=== PATIENT | male | born 1975 | race Caucasian/White ===

== ENCOUNTER 2020-07-19 16:54 | Observation (INO) | payer OTHER, SELFPAY ==
[2020-07-19] VITALS (9 sets, daily range): BP systolic 95–156; BP diastolic 53–100; PULSE 43–77; RESP 12–18; TEMP 36.1–37.1; O2SAT 97–100; BMI 28.3; BMI 29.2
--- NOTE | 2020-07-19 17:04 | EKG12_ITS ---
Test Reason : CHEST PAIN Blood Pressure : / mmHG Vent. Rate : 063 BPM Atrial Rate : 063 BPM P-R Int : 150 ms QRS Dur : 096 ms QT Int : 404 ms P-R-T Axes : 023 -23 007 degrees QTc Int : 413 ms Normal sinus rhythm RSR' or QR pattern in V1 suggests right ventricular conduction delay Voltage criteria for left ventricular hypertrophy Abnormal ECG Confirmed by DEINS VIZCAINO MD ([id number]), editor continuity and script CHRIS VERA ([id number]) on 07/23/2020 8:14:59 AM Referred By: ALISE Confirmed By:DENIS VIZCAINO MD
--- NOTE | 2020-07-19 17:04 | ED.VIS.CHEST ---
HPI History of Present Illness Chief Complaint: Chest Other Informant: patient Narrative Narrative: 45-year-old male presents to the emergency department with intermittent chest discomfort. He states that been present for 2 weeks. He states that he will come like a twinge that last about a second and 20 seconds later will have another 1. He will have 3-4 and then it may stop for an hour or 4-day. He denies any other symptoms. He became concerned because his father had CABG. he called his doctor's office and they recommended him come to emergency. No recent travel or surgeries. He is not treated for any medical issues. PFSH PFSH no medical history Home Medications NK 07/19/20 [History Last Taken Unknown] Allergy/AdvReac Type Severity Reaction Status Date / Time No Known Allergies Allergy Verified 07/19/20 16:56 Family History (Updated 07/19/20 @ 17:[address] Luca Wallace DO) Father CAD (coronary artery disease) no surgical history Social History (Updated 07/19/20 @ 17:[address] Luca Wallace DO) Smoking Status: Never smoker substance use type: does not use ROS ROS ED Constitutional Constitutional ED: Denies chills or weight loss Eyes Eyes: Denies change in vision or diplopia ENT ENT ED: Denies ear pain, rhinorrhea or sore throat Cardiovascular Cardiovascular: Reports chest pain; Denies orthopnea, palpitations or racing heartbeat Respiratory/Chest Respiratory/Chest: Denies cough, dyspnea or orthopnea Gastrointestinal Gastrointestinal: Denies abdominal pain, diarrhea, nausea or vomiting Genitourinary Genitourinary ED: Denies dysuria, hematuria or urinary frequency Musculoskeletal Musculoskeletal: Denies arthralgias or myalgias Integumentary Denies abscess or rash Neurologic Neurologic: Denies headache(s) or weakness Psychiatric Psychiatric: Denies anxiety, depression, suicidal ideation or suicidal thoughts Endocrine Endocrinology: Denies polydipsia, polyphagia or polyuria Allergic/Immunologic Allergic/Immunologic ED: Denies mouth swelling, tongue swelling or urticaria EXAM Physical Exam Const Vital Signs: 07/19/20 16:55 07/19/20 17:18 07/19/20 17:20 Temperature 96.9 F L Temperature Source Temporal Pulse Rate 73 64 Respiratory Rate 15 15 Respiratory Effort Normal Blood Pressure 156/100 H 95/53 L Blood Pressure Mean 118 67 Pulse Ox 99 98 Oxygen Delivery Method Room Air Room Air Positive well nourished and well developed General Appearance ED: well developed HEENT Reports normocephalic, head/scalp atraumatic and moist mucous membranes Eyes PERRL and EOMs intact bilaterally Neck no lymphadenopathy, supple and no JVD Resp normal respiratory effort and clear to auscultation bilaterally Cardio regular rate, regular rhythm and no murmurs GI normal to inspection, nondistended, normoactive bowel sounds and non-tender Palpation: soft Back/Spine no CVA tenderness and normal ROM Extremity normal to inspection General Extremety ED: Negative for edema General Extremity: Negative for edema Neuro oriented x3 and CN's II-XII intact bilaterally Sensorium / Orientation: alert Motor Exam: strength 5/5 throughout Psych mental status grossly normal Mood & Affect: Negative for depressed or tearful Skin no rashes or lesions noted and no wounds Heart Score History: Slightly/Non-Suspicious ECG: Normal Age: </= 45 years Risk Factors: 1 or 2 Risk Factors Troponin: >1 - <3 Normal Limit Score: 2 MDM MDM MDM Narrative Medical decision making narrative: Patient's EKG is a sinus rhythm with RSR prime. Patient's troponin is noted to be 0.096. His story is a bit atypical for angina. However his troponin elevated is concerning. I will speak with her hospitalist about admission for further cardiac evaluation Lab Data Labs: Laboratory Results - last 24 hr 07/19/20 07/19/20 17:10 17:10 WBC 7.3 RBC 4.58 L Hgb 14.7 Hct 42.0 MCV 91.7 MCH 32.1 H MCHC 35.0 RDW Std Deviation 37.7 RDW Coeff of Neda 11.1 L Plt Count 139 L MPV 9.3 Immature Gran % (Auto) 0.100 Neut % (Auto) 59.6 Lymph % (Auto) 32.5 Benson % (Auto) 6.3 Eos % (Auto) 0.8 Baso % (Auto) 0.7 Absolute Neuts (auto) 4.3 Absolute Lymphs (auto) 2.36 Nucleated RBC % 0 Sodium 140 Potassium 3.9 Chloride 104 Carbon Dioxide 27.0 Anion Gap 9 BUN 14 Creatinine 0.98 Estim Creat Clear Calc 81.38 Est GFR (MDRD) Af Amer 107 Est GFR (MDRD) Non-Af 88 BUN/Creatinine Ratio 14.2 Glucose 103 Calcium 9.8 Troponin I 0.096 H Radiography Diagnostic Testing: Radiology Impression Chest X-Ray 07/19/20 17:16 IMPRESSION: No radiographic evidence of acute cardiopulmonary disease. at 1743 Reported and signed by: Ernesto Hartman MD Electronically Signed: Ernesto Hartman MD at 17:42 EDT Tel , Service support , EKG Initial EKG: Attestation: I personally reviewed and interpreted this EKG as follows: Comments: Sinus rhythm at a rate of 63. RSR prime noted V1 V2. Discharge Plan Dx/Rx/DC Orders Clinical Impression: Chest pain, Elevated troponin I level Disposition Disposition: Acute Care [facility]
--- NOTE | 2020-07-19 17:08 | NURSING ---
NO OLD EKGS
--- NOTE | 2020-07-19 17:16 | RAD_ITS ---
HISTORY: chest pain EXAMINATION/TECHNIQUE: XR Chest 1 View: Portable upright AP chest x-ray COMPARISON: None FINDINGS: LINES/DEVICES: None. LUNGS: No consolidation, edema or effusion. No pneumothorax. MEDIASTINUM AND CARDIOVASCULAR STRUCTURES: Cardiac silhouette not enlarged. Central airways and mediastinal contour are unremarkable. BONES AND SOFT TISSUES: No acute bony abnormalities. RAD/Chest 1 View (Portable) IMPRESSION: No radiographic evidence of acute cardiopulmonary disease. at 1743 Reported and signed by: Ernesto Hartman MD Electronically Signed: Ernesto Hartman MD at 17:42 EDT Tel , Service support ,
[2020-07-19 17:29] LABS: Absolute Lymphocyte Count 2.36 X10^3/uL (0.83-4.51); Absolute Neutrophil Count 4.3 X10^3/uL (2.0-7.7); Basophil# 0.05 X10^3/uL; Basophil% 0.7 % (0-1); Eosinophil# 0.06 X10^3/uL; Eosinophils% 0.8 % (0-5); Hemoglobin 14.7 g/dL (13.0-16.5); Lymphocyte # 2.36 X10^3/ul (0.83-4.51); Lymphocyte % 32.5 % (19-41); Mean Corpuscular Hgb 32.1 pg (27.0-32.0); Mean Corpuscular Volume 91.7 fL (80-94); Mean Platelet Vol. 9.3 fl (6.2-12.0); Monocyte# 0.46 X10^3/uL; Monocyte% 6.3 % (0-10); NRBC Flagged by Analyzer 0 % (0-5); Neutrophil # 4.32 X10^3/uL (2.7-7.7); Neutrophil % 59.6 % (47-70); Platelet Count 139 K/mm3 (150-450); RBC Distribution Width CV 11.1 % (11.6-14.6); RBC Distribution Width SD 37.7 fl (35.1-43.9); Red Blood Count 4.58 M/mm3 (4.6-6.2); White Blood Count 7.3 K/mm3 (4.4-11.0)
[2020-07-19 17:40] LABS: Anion Gap 9 (5-15); BUN 14 mg/dL (7-18); BUN/Creat Ratio 14.2 RATIO (10-20); Calcium,Total 9.8 mg/dL (8.5-10.1); Chloride 104 mmol/L (98-107); Creatinine, Serum 0.98 mg/dL (0.70-1.30); EST Glomerular Filtration Rate 88 mL/min (>60); Est Glom Filt Rate - Afr Amer 107 mL/min (>60); Estimated Creatinine Clearance 81.38 ml/min; Glucose 103 mg/dL (74-106); Potassium 3.9 mmol/L (3.5-5.1); Sodium Level 140 mmol/L (136-145)
--- NOTE | 2020-07-19 18:07 | NURSING ---
DR MARC GARCIA
--- NOTE | 2020-07-19 18:08 | NURSING ---
PCU OBS CP, INDETERMINATE TROP
--- NOTE | 2020-07-19 18:37 | PCM.HP.STD ---
Documented by User: ABRAM Kulkarni 07/19/20 18:47 HPI - General General Date of Admission: 07/19/20 HPI Narrative MISSY SOTO, is a 45 M who presents with intermittent chest pain over the past 2 to 3 weeks. Patient states that it is best described as a twinge in his left chest and although the sensation is not always in the same spot it is always on the left side. Patient states pain is 1-2 out of 10 and is more annoying than anything. Patient reports medical history of GERD for which he takes omeprazole. Patient denies fever, chills, shortness of breath, cough, pain that radiates to the neck or left arm, nausea, vomiting. [facility] Medical History GERD (gastroesophageal reflux disease) Home Medications omeprazole [Prilosec] 20 mg PO DAILY 07/19/20 [History Last Taken 07/19/20] Allergy/AdvReac Type Severity Reaction Status Date / Time No Known Allergies Allergy Verified 07/19/20 16:56 Family History Father CAD (coronary artery disease) Social History Smoking Status: Never smoker substance use type: does not use ROS Constitutional Constitutional: Denies anorexia, chills or fatigue Cardiovascular Cardiovascular: Reports chest pain; Denies dyspnea, radiating jaw, neck or arm pain or syncope Respiratory/Chest Respiratory/Chest: Denies cough, shortness of breath at rest or shortness of breath with exertion Gastrointestinal Gastrointestinal: Denies abdominal pain, nausea or vomiting Genitourinary Genitourinary: Denies dysuria Musculoskeletal Musculoskeletal: Denies back pain, extremity pain, joint pain or joint stiffness Integumentary Integumentary: Denies dry skin Neurologic Neurologic: Denies abnormal gait, abnormal speech, confusion or dizziness Psychiatric Psychiatric: Denies anxiety or depression Endocrine Endocrinology: Denies change in body appearance Hematologic/Lymphatic Hematologic/Lymphatic: Denies easy bleeding or easy bruising Vital Signs Vital Signs Vital Signs: 07/19/20 16:55 07/19/20 17:18 07/19/20 17:20 Temperature 96.9 F L Temperature Source Temporal Pulse Rate 73 64 Respiratory Rate 15 15 Respiratory Effort Normal Blood Pressure 156/100 H 95/53 L Blood Pressure Mean 118 67 Pulse Ox 99 98 Oxygen Delivery Method Room Air Room Air 07/19/20 18:30 Temperature 98.1 F Temperature Source Temporal Pulse Rate 64 Respiratory Rate 18 Respiratory Effort Blood Pressure 110/74 Blood Pressure Mean 86 Pulse Ox 97 Oxygen Delivery Method Room Air Weight Weight: 165 lb Body Mass Index (BMI) 28.3 Physical Exam Const alert and oriented x3 General Appearance: cooperative HEENT normocephalic and head/scalp atraumatic Eyes PERRL Neck supple, no JVD and thyroid normal General: trachea midline Lymph Lymphatic: no lymphadenopathy noted Resp normal respiratory effort, normal air movement and clear to auscultation bilaterally Cardio regular rate, regular rhythm, S1 normal heart sound and S2 normal heart sound GI normal to inspection, nondistended, normoactive bowel sounds, soft to palpation and non-tender Extremity normal capillary refill and no clubbing, cyanosis or edema General Extremity: no tenderness to palpation of joints or extremities Skin General Skin Exam: no breakdown and turgor normal Lesions: no lesions Rashes: no rashes Neuro CN's II-XII intact bilaterally Psych thought process normal, cooperative and affect normal Appearance: appropriate Results Lab / Micro Data Result Diagrams: 07/19/20 17:10 07/19/20 17:10 Labs: Laboratory Results - last 24 hr 07/19/20 07/19/20 17:10 17:10 WBC 7.3 RBC 4.58 L Hgb 14.7 Hct 42.0 MCV 91.7 MCH 32.1 H MCHC 35.0 RDW Std Deviation 37.7 RDW Coeff of Neda 11.1 L Plt Count 139 L MPV 9.3 Immature Gran % (Auto) 0.100 Neut % (Auto) 59.6 Lymph % (Auto) 32.5 [place] % (Auto) 6.3 Eos % (Auto) 0.8 Baso % (Auto) 0.7 Absolute Neuts (auto) 4.3 Absolute Lymphs (auto) 2.36 Nucleated RBC % 0 Sodium 140 Potassium 3.9 Chloride 104 Carbon Dioxide 27.0 Anion Gap 9 BUN 14 Creatinine 0.98 Estim Creat Clear Calc 81.38 Est GFR (MDRD) Af Amer 107 Est GFR (MDRD) Non-Af 88 BUN/Creatinine Ratio 14.2 Glucose 103 Calcium 9.8 Troponin I 0.096 H Radiology Impression Chest X-Ray 07/19/20 17:16 IMPRESSION: No radiographic evidence of acute cardiopulmonary disease. at 1743 Reported and signed by: Ernesto Hartman MD Electronically Signed: Ernesto Hartman MD at 17:42 EDT Tel , Service support , Assessment & Plan Assessment/Plan (1) Chest pain: QUALIFIERS: Chest pain type: unspecified Qualified Code(s): R07.9 - Chest pain, unspecified (2) Elevated troponin I level: PLAN: 1. Chest pain -Admit to PCU for observation and cardiac monitoring -Initial troponin 0.096, will continue to trend per protocol -Cardiology consult ordered, case discussed with Dr. Davis will see in a.m. -Cardiac diet ordered, n.p.o. at midnight for possible procedure -Lipid profile in a.m. -Repeat EKG upon arrival to floor -Will initiate 81 mg aspirin daily, aspirin 324 mg dose received in ER 2. Elevated troponin I level -See #1 3. GERD -Patiently currently takes omeprazole, well controlled we will continue. DVT prophylaxis-no pharmacological prophylaxis indicated This patient was seen by KANDACE KulkarniC under the supervision of Dr. Ramos. Documented by User: Dr. Marvin Ramos DO 07/19/20 19:50 HPI - General General Date of Admission: 07/19/20 Date of Service: 07/19/20 Chief Complaint: Chest pain HPI Narrative 45-year-old male with no previous past medical history presents with intermittent chest pain. He states is a chest pain is variable and not relieved or exacerbated by anything in particular. States that his primary left-sided but can be pinpoint around the lower left portion of his sternum at times. Not worsened by exertion and states that he recently went out for a jog and had no worsening of his chest pain. He denies any other constitutional symptoms along with this. He denies this ever having happened before. He presented to the emergency room and underwent a work-up that was unremarkable with exception of a troponin that was slightly elevated at 0.09. [facility] Medical History GERD (gastroesophageal reflux disease) Home Medications omeprazole [Prilosec] 20 mg PO DAILY 07/19/20 [History Last Taken 07/19/20] Allergy/AdvReac Type Severity Reaction Status Date / Time No Known Allergies Allergy Verified 07/19/20 16:56 Family History Father CAD (coronary artery disease) Social History Smoking Status: Never smoker substance use type: does not use ROS ROS Narrative All review of systems were negative except as mentioned above in the history of present illness and the other review of systems. Physical Exam Const alert Eyes PERRL and EOMs intact bilaterally Resp normal respiratory effort, normal air movement and clear to auscultation bilaterally Cardio regular rate, regular rhythm, S1 normal heart sound and S2 normal heart sound GI normal to inspection, nondistended, normoactive bowel sounds, non-tender and non-distended Extremity no clubbing, cyanosis or edema General Extremity: no tenderness to palpation of joints or extremities Results Lab / Micro Data Attestation: I reviewed the patient's lab results. Result Diagrams: 07/19/20 17:10 07/19/20 17:10 Assessment & Plan Assessment/Plan (1) Chest pain: QUALIFIERS: Chest pain type: unspecified Qualified Code(s): R07.9 - Chest pain, unspecified (2) Elevated troponin I level: PLAN: Patient seen and examined independently. Data reviewed. I agree with the above note by the nurse practitioner. 1. Chest pain NELIDA score of 2, due to chest pain and elevated cardiac markers Did discuss with Dr. Moodispaw because of his elevated troponins though relatively low, he recommended to keep patient n.p.o. and then cardiology would evaluate tomorrow to determine if stress test or cardiac catheterization would be advised. Will start the patient on aspirin, check lipid panel, cycle troponins 2. VTE prophylaxis: Not indicated at this time given observation status. Charges/Coding Visit Charges OBSV E&M: 45530 Initial observation care L2
--- NOTE | 2020-07-19 18:48 | EKG12_ITS ---
Test Reason : BRADYCARDIA Blood Pressure : / mmHG Vent. Rate : 045 BPM Atrial Rate : 045 BPM P-R Int : 166 ms QRS Dur : 098 ms QT Int : 446 ms P-R-T Axes : 028 -14 010 degrees QTc Int : 385 ms Sinus bradycardia Voltage Criteria for LVH Nonspecific T wave abnormality Confirmed by LIS ULLOA, TEE ([id number]), associate entertainment editor TRAVIS CRUZ ([id number]) on 07/21/2020 9:12:25 AM Referred By: DR TRAN Confirmed By:TEE HAYS MD
[2020-07-19] MEDS: Aspirin 81 MG TAB.CHEW 324 MG PO (19:55)
--- NOTE | 2020-07-19 23:12 | EKG12_ITS ---
Test Reason : CP ADMIT Blood Pressure : / mmHG Vent. Rate : 058 BPM Atrial Rate : 058 BPM P-R Int : 148 ms QRS Dur : 096 ms QT Int : 408 ms P-R-T Axes : 028 -22 013 degrees QTc Int : 400 ms Sinus bradycardia Voltage criteria for left ventricular hypertrophy Nonspecific T wave abnormality Abnormal ECG Confirmed by LIS ULLOA, TEE ([id number]), script editor TRAVIS CRUZ ([id number]) on 07/21/2020 9:12:43 AM Referred By: DR TRAN Confirmed By:TEE HAYS MD
--- NOTE | 2020-07-19 23:36 | NURSING ---
Pt's heart rate was noted to be as low as 39, notified shanita patel of heart rate. Order received to obtain ekg, ekg sent to Dr Jenkins for review. No stemi per Dr Jenkins. No furthur orders received. 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
[2020-07-20] VITALS (15 sets, daily range): BP systolic 113–147; BP diastolic 72–86; PULSE 45–78; RESP 14–18; TEMP 36.4–36.9; O2SAT 97–100
[2020-07-20] MEDS: Aspirin E.C. 81 MG Tablet PO (06:35)
[2020-07-20 07:07] LABS: Cholesterol 200 mg/dL (200); High Density Lipoprotein 52 mg/dL; Triglycerides 122 mg/dL; Very Low Density Lipoprotein 24 mg/dL (5-40)
--- NOTE | 2020-07-20 08:11 | ECHOCS_ITS ---
Reason For Study: Chest Pain Procedure This was a 2D Doppler, Color Flow transthoracic echocardiogram. Technically difficult study, contrast injection performed. Echo done immediately post cath. The study was technically difficult. Contrast injection was performed. Exam performed portable in patient room. Left Ventricle Normal LV size. Left ventricular systolic function is normal. The estimated ejection fraction is 60 %. No evidence for diastolic dysfunction. No regional wall motion abnormalities noted. Right Ventricle Normal RV size. A calcified moderator band is seen in the right ventricle. Normal systolic function. Atria Normal left atrium. Normal right atrium. No doppler evidence for ASD. Mitral Valve There is no mitral annular calcification. Normal mitral valve. Trivial mitral valve insufficiency. Tricuspid Valve Normal tricuspid valve. Mild tricuspid valve insufficiency. Right ventricular systolic pressure estimated to be 29 mmHg. Aortic Valve Trisinus/trileaflet aortic valve. Normal aortic valve. Pulmonic Valve The pulmonic valve is not well visualized. Great Vessels The aortic root is not well visualized. Pericardium/Pleural No pericardial effusion. Medication Diluted definity 2.5ml given slow IV push to enhance endocardial definition. MMode/2D Measurements & Calculations LVIDd: 4.9 cm IVSd: 1.1 cm LA dimension: 2.9 cm LVIDs: 3.1 cm LVPWd: 1.1 cm FS: 36.6 % LAV(MOD-sp4): 26.2 ml LA A4 area: 12.0 cm2 RA A4 area: 14.2 cm2 Time Measurements MV dec time: 0.31 sec Doppler Measurements & Calculations MV E max luis: 80.4 cm/sec Lat Peak E' Luis: 12.1 cm/sec Med Peak E' Luis: 11.2 cm/sec MV A max luis: 59.3 cm/sec E/E' lat: 6.6 E/E' med: 7.2 MV E/A: 1.4 MV V2 max: 91.1 cm/sec MV P1/2t max luis: 91.7 cm/sec Ao V2 max: 106.5 cm/sec MV max P.3 mmHg MV P1/2t: 83.9 msec Ao max P.5 mmHg MV V2 mean: 40.0 cm/sec MV dec slope: 320.1 cm/sec2 MV mean P.82 mmHg MV V2 VTI: 32.7 cm MVA(P1/2t): 2.6 cm2 LV V1 max: 101.2 cm/sec PA V2 max: 173.3 cm/sec TR max luis: 255.7 cm/sec LV V1 max P.1 mmHg TR max P.1 mmHg ECHO/Echo Complete W/ Contrast Interpretation Summary The study was technically difficult. Contrast injection was performed. Left ventricular systolic function is normal. The estimated ejection fraction is 60 %. A calcified moderator band is seen in the right ventricle. Trivial mitral valve insufficiency. Mild tricuspid valve insufficiency. Right ventricular systolic pressure estimated to be 29 mmHg. No evidence for diastolic dysfunction. Ordering Physician: Uday Davis Referring Physician: No PCP noted Performed By: Anand Raymond RCS
--- NOTE | 2020-07-20 08:16 | PCM.CONS.C ---
Assessment & Plan Assessment/Plan (1) Elevated troponin I level: PLAN: The patient does have an elevated troponin I level. Technically this is compatible with a non-ST segment elevation SC. It is unclear at the moment whether this may be a type I event versus a type II event secondary to a noncardiovascular issue. From a cardiac standpoint the patient appears to be resting comfortably in no acute distress. His troponin I levels have trended down but have not normalized. His follow-up ECGs have not demonstrated any new acute changes. Further evaluation from a cardiovascular standpoint was discussed with him. This would include noninvasive studies such as a transthoracic echocardiogram to evaluate his left ventricular wall thickness, motion, and overall systolic function. From an invasive standpoint this would include further evaluation with diagnostic cardiac catheterization to evaluate his coronary anatomy for the need for additional diagnostic studies/revascularization versus further noncardiac evaluation. The above was discussed and reviewed with the patient. The procedure and risks were discussed. The patient was agreeable to proceeding with the above. In the interim he will continue medical therapy as deemed appropriate which would include aspirin therapy and antiplatelet therapy as well as additional medications as necessary. (2) Chest pain: QUALIFIERS: Chest pain type: unspecified Qualified Code(s): R07.9 - Chest pain, unspecified PLAN: The patient's chest discomfort is somewhat vague according to the patient. However, he states he knows it is not his normal feeling. At the same time he has been found to have his abnormal troponin I levels. There has been no other etiology to explain his discomfort or his troponin I levels thus far. Thus in the interim the patient will continue noninvasive and invasive studies as deemed appropriate. (3) HTN (hypertension): QUALIFIERS: Hypertension type: unspecified Qualified Code(s): I10 - Essential (primary) hypertension PLAN: The patient's blood pressure was elevated upon arrival to the hospital. He states his blood pressure is usually well controlled at home and in other physicians offices. Thus it is unclear as to whether or not the patient's blood pressure has elevated and this is a contributing factor to his symptoms and objective findings versus whether his blood pressure was elevated based upon his anxiety and presenting to the emergency department. At the present time his blood pressures will be followed and treated as necessary. Addt'l Comments The patient's case has been discussed reviewed with the patient and Dr. Stack of the [facility] staff. This note was generated using a voice recognition system and there may be incorrect words, spelling or punctuation that were not noted when reviewing the office note prior to saving. HPI Consult Data Date of Consult: 07/20/20 HPI Narrative HPI Narrative: MISSY SOTO, is a 45 year old white male who presents for cardiovascular rotation based upon concerns of chest discomfort and abnormal troponin I levels. The patient states that recently he has been feeling left-sided discomfort . He describes a vague sensation over his left pectoral area that comes and goes somewhat randomly. It does not necessarily radiate to his neck jaw or upper extremity. He states it is not necessarily associated with abrupt nausea, emesis, diaphoresis, or dyspnea. It has not necessarily stopped his activities of daily living. However, as he has a family history of cardiovascular disease in the males in his family, he contacted his PCP yesterday. His PCP advised him to present to the emergency department for further evaluation. In the emergency department he was evaluated and found to have an abnormal troponin I level and an ECG that demonstrated what appeared to be sinus bradycardia with an incomplete right bundle branch block pattern and consideration for voltage criteria for LVH. He was placed in the PCU for further evaluation and care. His troponin I levels have decreased but have not normalized. His repeat ECGs have demonstrated no acute ECG changes. A chest x-ray was performed which demonstrated no acute changes per radiology. In the interim he has denied any orthopnea, PND, or peripheral pitting edema. He states he has taken on a new stressful job over the last 2 weeks. [facility] Medical History GERD (gastroesophageal reflux disease) Home Medications omeprazole [Prilosec] 20 mg PO DAILY 07/19/20 [History Last Taken 07/19/20] Allergy/AdvReac Type Severity Reaction Status Date / Time No Known Allergies Allergy Verified 07/19/20 16:56 Family History Father CAD (coronary artery disease) Social History Smoking Status: Never smoker substance use type: does not use ROS Constitutional Constitutional: Reports as per HPI Eyes Eyes: Reports as per HPI ENT HEENT: Reports as per HPI Cardiovascular Cardiovascular: Reports chest pain Respiratory/Chest Respiratory/Chest: Reports as per HPI Genitourinary Genitourinary: Reports as per HPI Integumentary Integumentary: Reports as per HPI Neurologic Neurologic: Reports as per HPI Physical Exam Const alert and oriented x3 Orientation / Consciousness: awake HEENT normocephalic Eyes PERRL and EOMs intact bilaterally Neck full ROM and supple Chest inspection of chest normal Resp normal respiratory effort and clear to auscultation bilaterally Cardio regular rate, regular rhythm, S1 normal heart sound and S2 normal heart sound GI normal to inspection, nondistended, normoactive bowel sounds Extremity normal to inspection and full ROM Skin no rashes or lesions noted Neuro oriented x3, CN's II-XII intact bilaterally and moves all extremities Psych mental status grossly normal Procedure Criteria Type of Procedure Procedure Type: Elective Elective Risks - COVID COVID Risk Discussion: The surgeon/proceduralist and patient have discussed in detail the risk of exposure to and/or potential harm posed by the COVID-19 virus with having a surgery/procedure at this time versus the risk of delaying the surgery/procedure. It is not possible to know either the risk of delaying the surgery or procedure or chance of getting an infection with perfect accuracy, but a joint decision was made between the patient and the surgeon/proceduralist to proceed at this time with the scheduled surgery/procedure as indicated on the consent form. Objective Data Vital Signs: Vital Signs Temp Pulse Resp BP Pulse Ox 98.4 F 67 16 119/75 98 07/20/20 06:38 07/20/20 06:59 07/20/20 06:38 07/20/20 06:38 07/20/20 06:38 Oxygen Delivery Method Room Air Weight: 170 lb 4.8 oz Body Mass Index (BMI) 29.2 Intake & Output: Intake and Output for Last 24 Hours 07/18/20 07/19/20 07/20/20 23:59 23:59 23:59 Intake Total 400 / 400 Balance 400 / 400 Lab / Micro Data Result Diagrams: 07/19/20 17:10 07/19/20 17:10 Labs: Laboratory Results - last 24 hr 07/19/20 07/19/20 07/19/20 17:10 17:10 19:51 WBC 7.3 RBC 4.58 L Hgb 14.7 Hct 42.0 MCV 91.7 MCH 32.1 H MCHC 35.0 RDW Std Deviation 37.7 RDW Coeff of Neda 11.1 L Plt Count 139 L MPV 9.3 Immature Gran % (Auto) 0.100 Neut % (Auto) 59.6 Lymph % (Auto) 32.5 [place] % (Auto) 6.3 Eos % (Auto) 0.8 Baso % (Auto) 0.7 Absolute Neuts (auto) 4.3 Absolute Lymphs (auto) 2.36 Nucleated RBC % 0 Sodium 140 Potassium 3.9 Chloride 104 Carbon Dioxide 27.0 Anion Gap 9 BUN 14 Creatinine 0.98 Estim Creat Clear Calc 81.38 Est GFR (MDRD) Af Amer 107 Est GFR (MDRD) Non-Af 88 BUN/Creatinine Ratio 14.2 Glucose 103 Calcium 9.8 Troponin I 0.096 H 0.083 H Triglycerides Cholesterol LDL Cholesterol VLDL Cholesterol HDL Cholesterol 07/19/20 07/20/20 23:06 06:16 WBC RBC Hgb Hct MCV MCH MCHC RDW Std Deviation RDW Coeff of Neda Plt Count MPV Immature Gran % (Auto) Neut % (Auto) Lymph % (Auto) [place] % (Auto) Eos % (Auto) Baso % (Auto) Absolute Neuts (auto) Absolute Lymphs (auto) Nucleated RBC % Sodium Potassium Chloride Carbon Dioxide Anion Gap BUN Creatinine Estim Creat Clear Calc Est GFR (MDRD) Af Amer Est GFR (MDRD) Non-Af BUN/Creatinine Ratio Glucose Calcium Troponin I 0.075 H Triglycerides 122 Cholesterol 200 LDL Cholesterol 124 VLDL Cholesterol 24 HDL Cholesterol 52 Cardiology Labs/Tests 07/19/20 17:10: WBC 7.3, RBC 4.58 L, Hgb 14.7, Hct 42.0, MCV 91.7, MCH 32.1 H, MCHC 35.0, Plt Count 139 L, MPV 9.3, Immature Gran % (Auto) 0.100, Neut % (Auto) 59.6, Lymph % (Auto) 32.5, [place] % (Auto) 6.3, Eos % (Auto) 0.8, Baso % (Auto) 0.7, Absolute Neuts (auto) 4.3, Nucleated RBC % 0 07/19/20 17:10: Sodium 140, Potassium 3.9, Chloride 104, Carbon Dioxide 27.0, Anion Gap 9, BUN 14, Creatinine 0.98, Est GFR (MDRD) Af Amer 107, Est GFR (MDRD) Non-Af 88, BUN/Creatinine Ratio 14.2, Glucose 103, Calcium 9.8, Troponin I 0.096 H 07/19/20 19:51: Troponin I 0.083 H 07/19/20 23:06: Troponin I 0.075 H 07/20/20 06:16: Triglycerides 122, Cholesterol 200, LDL Cholesterol 124, VLDL Cholesterol 24, HDL Cholesterol 52 Rhythm: Sinus rhythm EKG: As noted above Radiography Diagnostic Testing: Radiology Impression Chest X-Ray 07/19/20 17:16 IMPRESSION: No radiographic evidence of acute cardiopulmonary disease. at 1743 Reported and signed by: Ernesto Hartman MD Electronically Signed: Ernesto Hartman MD at 17:42 EDT Tel , Service support ,
[2020-07-20] MEDS: 0.9% Normal Saline 1,000 ML 15 ML IV (08:31)
[2020-07-20] MEDS: TICAGRELOR 90 MG TABLET 180 MG PO (08:32)
[2020-07-20] MEDS: Pantoprazole Sodium 20 MG Tablet PO (08:32)
--- NOTE | 2020-07-20 08:38 | NURSING ---
called report to Jarad in cathodic protection technician
--- NOTE | 2020-07-20 08:40 | CASEMGMT ---
[facility] follows: [facility], [facility], [facility], and [place] ([facility]) Liborio BSN RN CM
--- NOTE | 2020-07-20 10:08 | CL.D_ITS ---
Patient Name: MISSY SOTO Study Date: 07/20/2020 Performing: Uday Davis MD Ht: 64.17 inches 163 cm : 1975 Wt: 169.76 lbs 77 kg Age: 45 Gender: male BSA: 1.83 PROCEDURE(S) PERFORMED LY11-MEK/COR/LV CLINICAL PROFILE AND INDICATIONS Indications: ACS <= 24 hrs, Suspected CAD Heart Failure: None Stress/Imaging Stress/Image Study Performed: No Angina Classification Anginal Classification w/in 2 Weeks: CCS III CAD Presentations: Non-STEMI. CONCLUSIONS Normal Left Ventricular End Diastolic Pressure Normal LV size, wall motion,and systolic function LVEF: by LV gram 60 % Normal coronary arteries RECOMMENDATIONS Risk factor modification Medical therapy DESCRIPTION OF PROCEDURE The patient arrived to the procedure lab. The risks and benefits of the procedure as well as a full d escription of our services here and current unavailability of surgical backup were fully explained to the patient and/or their significant other prior to the catheterization. The Timeout was completed, verifying the correct patient and procedure. The patient's procedural site was prepped and draped in the usual fashion. Local anesthetic was given subcutaneously to right radial region with Lidocaine 2% . Local anesthetic was given subcutaneously to right groin region with Lidocaine 2%. Using a modified Seldinger technique, arterial access was obtained via the right femoral artery, a 4Fr sheath was ins erted Left Coronary Artery selective angiography was performed in multiple views using a 4 Fr. JL5 c atheter. Left Coronary Artery selective angiography was performed in multiple views using a 4 Fr. JL4 catheter. Right Coronary Artery selective angiography was then performed in multiple views using a 4 Fr. 3DRC catheter. Left Ventriculography was performed in MARTI projection using a 4 Fr . Pigtail catheter. LV to AO pullback pressures were then recorded.The arterial sheath was pulled and manual compression applied until hemostasis is achieved. CORONARY ANGIOGRAPHY DOMINANCE: Right Dominant LEFT HEART ASSESSMENT Left Ventricular Ejection Fraction: by LV Gram 60 % Normal LV wall motion Normal Left Ventricular End Diastolic Pressure LVEDP: 7 mmHg LEFT MAIN: Angiographically normal LEFT ANTERIOR DESCENDING ARTERY: Angiographically normal CIRCUMFLEX ARTERY: Angiographically normal RIGHT CORONARY ARTERY: Angiographically normal AORTIC ROOT: Angiographically normal COMPLICATIONS No Complications PROCEDURE MEDICATIONS Fentanyl 50 mcg IV Versed 1 mg IV Oxygen: 2 L/min via nasal cannula SUMMARY OF HEMODYNAMIC DATA Time AIR REST ECG 08:45:38 AO 98/58 (79) SA 09:38:40 LV 121/-18, 9 09:50:20 LV 121/-18, 7 09:50:27 LV 118/-18, 8 09:51:38 LV 120/-18, 9 09:51:43 LVp 119/-19, 8 09:51:52 AOp 123/61 (85) 09:51:57 Signed By Uday Davis MD On 07/20/2020 10:07:40 Uday Davis MD
--- NOTE | 2020-07-20 11:32 | PCM.DC ---
Discharge Instructions Follow Up Care Test Results: Test results from this visit will be discussed in further detail at your follow-up appointment, if applicable. Discharge Plan Admission Admit Date/Time: 07/19/20 18:26 Attending Provider: Vadim Stack Primary Care Provider: Care Physician,No Primary Consulting Providers: Uday Davis Instructions Patient Instructions: ED Chest Pain, Noncardiac Discharge Orders/Prescriptions Prescriptions: No Action omeprazole [Prilosec] 20 mg Capsule,Delayed Release(Dr/Ec) 20 mg PO DAILY RF: 0 Referrals / Follow Up: Care Physician,No Primary [Primary Care Provider] - Disposition Disposition (needs filled in before D/C Order can be placed): Home, self care
--- NOTE | 2020-07-20 11:57 | CASEMGMT ---
[facility] NOTE: Pt being discharged home. Noted pt listed as not having a PCP. RN CM to room to talk w/pt. Introduced self and role of [facility]. Pt states he was seeing Dr Goode @ [facility], but now has an appt to get established w/a new doctor @ [facility] next week. Pt states he does not remember name of the new PCP. He denies having any discharge planning needs/concerns. Liborio RODRIGUESN [facility]
--- NOTE | 2020-07-20 14:39 | DCINST_ITS ---
Discharge Instructions Diet Discharge Diet: Low fat / Low cholesterol Activity Discharge Activity: Return to Normal Activity Additional Activity Instructions:: Follow-up post cath instructions Dressing / Incision Call your doctor if your incision/area has: Continuous Slow Oozing, Sudden Increased Bleeding, Increased Pain/ Swelling, Increased Redness, Foul Smelling Discharge and Swelling at the incision site Call your doctor if you observe: Shortness of breath, Dizziness and Chest pain Follow Up Care Test Results: Test results from this visit will be discussed in further detail at your follow-up appointment, if applicable. Discharge Plan Admission Admit Date/Time: 07/19/20 18:26 Primary Reason for Your Visit: Chest pain Attending Provider: Vadim Stack Primary Care Provider: Care Physician,No Primary Consulting Providers: Uday Davis Discharge Orders/Prescriptions Prescriptions: New aspirin 81 mg Tablet,Delayed Release (Dr/Ec) 81 mg PO DAILY@0800 Qty: 30 RF: 0 atorvastatin 10 mg tablet 10 mg PO QHS Qty: 30 RF: 0 clopidogrel [Plavix] 75 mg tablet 75 mg PO DAILY Qty: 30 RF: 0 lisinopril 5 mg tablet 5 mg PO DAILY Qty: 30 RF: 0 Continued omeprazole 20 mg Capsule,Delayed Release(Dr/Ec) 20 mg PO DAILY RF: 0 Referrals / Follow Up: Care Physician,No Primary [Primary Care Provider] - In 1 Week Elisabet Spaulding, PA [PHYSICIAN ENGINEERING AIDE] - Within 2 Weeks (Hospital cardiology follow-up) Disposition Disposition (needs filled in before D/C Order can be placed): Home, self care
[2020-07-20 14:42] LABS: D-Dimer Quantitative (DVT/PE) 0.29 FEU/ug/m (0.27-0.49)
--- NOTE | 2020-07-20 14:46 | DS.PCM_ITS ---
Documented by User: Leslie Garcia NP, SAMMY-C 07/20/20 14:53 Providers Date of Admission: 07/19/20 Date of Discharge: 07/20/20 Primary Care Physician: No Primary Care Phys Consultations 07/19/20 18:48 Consult: Cardiology Routine Consulting Provider: Uday Davis Reason for Consult: chest pain EMERGENT Consult: No MD Notified: Yes Date Notified:: 07/19/20 Time Notified: 18:25 Method of Notification: Verbal Reason For Visit: CHEST PAIN Diagnosis Discharge Diagnosis (1) Elevated troponin I level: Status: Acute Code(s): R77.8 - Other specified abnormalities of plasma proteins (2) Chest pain: Status: Acute Code(s): R07.9 - Chest pain, unspecified Qualifiers: Chest pain type: unspecified Qualified Code(s): R07.9 - Chest pain, unspecified (3) HTN (hypertension): Status: Chronic Code(s): I10 - Essential (primary) hypertension Qualifiers: Hypertension type: unspecified Qualified Code(s): I10 - Essential (primary) hypertension Medications at Discharge Home Medications omeprazole 20 mg PO DAILY 07/19/20 aspirin 81 mg PO DAILY@0800 #30 tab 07/20/20 atorvastatin 10 mg PO QHS #30 tab 07/20/20 clopidogrel [Plavix] 75 mg PO DAILY #30 tab 07/20/20 lisinopril 5 mg PO DAILY #30 tab 07/20/20 Hospital Course Operations None Procedures 2-D Echocardiogram and Cardiac catheterization Summary of Care Provided Minutes Spent on Discharge: 35 Hospital Course: Patient is a 45-year-old male admitted 07/19/20 due to chest pain. 1. Chest pain, elevated troponin-troponin 0. 096, 0.083, 0.075. EKG without ST-T changes. Echocardiogram demonstrates an EF of 60%. Patient underwent cardiac catheterization which showed normal coronary arteries. D-dimer negative. Wells score for DVT/PE 0. Cardiology consulted during admission. Given elevated troponin, cardiology recommends aspirin, Plavix, statin, AREN inhibitor. Plavix for 3 months followed by aspirin only. Follow-up with cardiology in 2 weeks. 2. GERD-continue PPI. Patient seen and examined prior to discharge. Physical assessment as noted below. Patient is stable for discharge with follow up recommendations as noted above. This patient was seen by ABRAM Nina under the supervision of Dr. Stack. Physical Exam Const alert, oriented x3 and no apparent distress Orientation / Consciousness: awake, oriented to person, oriented to place and oriented to time HEENT normocephalic and moist oral mucous membranes Eyes PERRL, EOMs intact bilaterally and conjunctivae normal Neck no lymphadenopathy Resp normal respiratory effort and clear to auscultation bilaterally Cardio regular rate, regular rhythm and no murmurs Peripheral Pulses: pulses 2+ throughout GI normal to inspection, nondistended, normoactive bowel sounds, non-tender and non-distended Extremity normal to inspection Skin no rashes or lesions noted Lesions: no lesions Rashes: no rashes Trauma: no lacerations or abrasions Neuro CN's II-XII intact bilaterally, no focal motor deficits, no sensory deficits noted and deep tendon reflexes 2+ bilaterally Psych mental status grossly normal and affect normal Weight / BMI Weight Weight: 170 lb 4.8 oz Body Mass Index (BMI) 29.2 ABG / Lab / Microbiology Data Result Diagrams: 07/19/20 17:10 07/19/20 17:10 Laboratory: Laboratory Results - last 24 hr 07/19/20 07/19/20 07/19/20 17:10 17:10 19:51 WBC 7.3 RBC 4.58 L Hgb 14.7 Hct 42.0 MCV 91.7 MCH 32.1 H MCHC 35.0 RDW Std Deviation 37.7 RDW Coeff of Neda 11.1 L Plt Count 139 L MPV 9.3 Immature Gran % (Auto) 0.100 Neut % (Auto) 59.6 Lymph % (Auto) 32.5 Mobile % (Auto) 6.3 Eos % (Auto) 0.8 Baso % (Auto) 0.7 Absolute Neuts (auto) 4.3 Absolute Lymphs (auto) 2.36 Nucleated RBC % 0 D-Dimer Quant (PE/DVT) Sodium 140 Potassium 3.9 Chloride 104 Carbon Dioxide 27.0 Anion Gap 9 BUN 14 Creatinine 0.98 Estim Creat Clear Calc 81.38 Est GFR (MDRD) Af Amer 107 Est GFR (MDRD) Non-Af 88 BUN/Creatinine Ratio 14.2 Glucose 103 Calcium 9.8 Troponin I 0.096 H 0.083 H Triglycerides Cholesterol LDL Cholesterol VLDL Cholesterol HDL Cholesterol 0607/20/20 07/20/20 23:06 06:16 14:26 WBC RBC Hgb Hct MCV MCH MCHC RDW Std Deviation RDW Coeff of Neda Plt Count MPV Immature Gran % (Auto) Neut % (Auto) Lymph % (Auto) Mobile % (Auto) Eos % (Auto) Baso % (Auto) Absolute Neuts (auto) Absolute Lymphs (auto) Nucleated RBC % D-Dimer Quant (PE/DVT) 0.29 Sodium Potassium Chloride Carbon Dioxide Anion Gap BUN Creatinine Estim Creat Clear Calc Est GFR (MDRD) Af Amer Est GFR (MDRD) Non-Af BUN/Creatinine Ratio Glucose Calcium Troponin I 0.075 H Triglycerides 122 Cholesterol 200 LDL Cholesterol 124 VLDL Cholesterol 24 HDL Cholesterol 52 Radiography Diagnostic Testing: Radiology Impression Chest X-Ray 07/19/20 17:16 IMPRESSION: No radiographic evidence of acute cardiopulmonary disease. at 1743 Reported and signed by: Ernesto Hartman MD Electronically Signed: Ernesto Hartman MD at 17:42 EDT Tel , Service support , Echocardiogram 07/20/20 08:11 Interpretation Summary The study was technically difficult. Contrast injection was performed. Left ventricular systolic function is normal. The estimated ejection fraction is 60 %. A calcified moderator band is seen in the right ventricle. Trivial mitral valve insufficiency. Mild tricuspid valve insufficiency. Right ventricular systolic pressure estimated to be 29 mmHg. No evidence for diastolic dysfunction. Ordering Physician: Uday Davis Referring Physician: No PCP noted Performed By: Anand Raymond RCS D/C Instructions Discharge Diet: Low fat / Low cholesterol Additional Activity Instructions: Follow-up post cath instructions Call your doctor if your incision/area has: Continuous Slow Oozing, Sudden Increased Bleeding, Increased Pain/ Swelling, Increased Redness, Foul Smelling Discharge and Swelling at the incision site Call your doctor if you observe: Shortness of breath, Dizziness and Chest pain Meaningful Use Info Meaningful Use Diagnoses (Choose all that apply): None applicable Discharge Plan Admission Admit Date/Time: 07/19/20 18:26 Primary Reason for Your Visit: Chest pain Attending Provider: Vadim Stack Primary Care Provider: Care Physician,No Primary Consulting Providers: Uday Davis Discharge Orders/Prescriptions Prescriptions: New aspirin 81 mg Tablet,Delayed Release (Dr/Ec) 81 mg PO DAILY@0800 Qty: 30 RF: 0 atorvastatin 10 mg tablet 10 mg PO QHS Qty: 30 RF: 0 clopidogrel [Plavix] 75 mg tablet 75 mg PO DAILY Qty: 30 RF: 0 lisinopril 5 mg tablet 5 mg PO DAILY Qty: 30 RF: 0 Continued omeprazole 20 mg Capsule,Delayed Release(Dr/Ec) 20 mg PO DAILY RF: 0 Referrals / Follow Up: Care Physician,No Primary [Primary Care Provider] - In 1 Week Elisabet Spaulding PA [[employer]] - Within 2 Weeks (Hospital cardiology follow-up) Disposition Disposition (needs filled in before D/C Order can be placed): Home, self care Documented by User: Dr. Vadim Stack MD 07/20/20 15:17 Providers Date of Admission: 07/19/20 Reason For Visit: CHEST PAIN Medications at Discharge Home Medications omeprazole 20 mg PO DAILY 07/19/20 aspirin 81 mg PO DAILY@0800 #30 tab 07/20/20 atorvastatin 10 mg PO QHS #30 tab 07/20/20 clopidogrel [Plavix] 75 mg PO DAILY #30 tab 07/20/20 lisinopril 5 mg PO DAILY #30 tab 07/20/20 ABG / Lab / Microbiology Data Result Diagrams: 07/19/20 17:10 07/19/20 17:10 Discharge Plan Admission Admit Date/Time: 07/19/20 18:26 Primary Reason for Your Visit: Chest pain Attending Provider: Vadim Stack Primary Care Provider: Care Physician,No Primary Consulting Providers: Uday Davis Discharge Orders/Prescriptions Prescriptions: New aspirin 81 mg Tablet,Delayed Release (Dr/Ec) 81 mg PO DAILY@0800 Qty: 30 RF: 0 atorvastatin 10 mg tablet 10 mg PO QHS Qty: 30 RF: 0 clopidogrel [Plavix] 75 mg tablet 75 mg PO DAILY Qty: 30 RF: 0 lisinopril 5 mg tablet 5 mg PO DAILY Qty: 30 RF: 0 Continued omeprazole 20 mg Capsule,Delayed Release(Dr/Ec) 20 mg PO DAILY RF: 0 Referrals / Follow Up: Care Physician,No Primary [Primary Care Provider] - In 1 Week Elisabet Spaulding PA [[employer]] - Within 2 Weeks (Hospital cardiology follow-up) Disposition Disposition (needs filled in before D/C Order can be placed): Home, self care Charges/Coding Addendum Addendum: Addendum: Dr. Stack I personally examined the patient and reviewed the chart. I agree with the abo ve. 45-year-old male presented to the hospital with left-sided chest pain that was intermittent. It was not brought on by exercise as his states that he had run a few days prior with no issue. He cannot really share anything that made it better or worse but says that it was on the left side and he describes it more like a twinge but not muscular. He did have a slightly elevated troponin and family history of heart disease with CABGs in both his father and his uncle therefore a heart cath was proposed and was completely normal today. He also had an echo which was unremarkable. We checked a D-dimer which was normal effectively ruling out PE and a DVT especially since he is not short of breath, not tachycardic, denies lower extremity edema or calf pain. He did acknowledge some stress with a new job he started which began about 2 weeks ago which is around the time that his chest pain started, I did recommend therapy however given his elevated troponin he does need to follow-up with cardiology and to continue the aspirin, Plavix, statin, as well as AREN inhibitor that was recommended by cardiology. Visit Charges OBSV E&M: 31350 Observation care discharge
--- NOTE | 2020-07-20 14:54 | NURSING ---
bedrest completed. walked patient in hallway, tolerated well. dressing c/d/i. no hematoma noted
--- NOTE | 2020-07-20 15:06 | PHA.DC.MC ---
Pharmacy Service has performed discharge medication reconciliation and counseling for this patient. 1. ASPIRIN 81MG PO DAILYCM 2. ATORVASTATIN 10MG PO QHS 3. CLOPIDOGREL 75MG PO DAILY X 3 MONTHS 4. LISINOPRIL 5MG PO DAILY The patient's discharge medication list was reviewed for discrepancies and discrepancies were resolved. Home Medications omeprazole 20 mg PO DAILY 07/19/20 aspirin 81 mg PO DAILY@0800 #30 tab 07/20/20 atorvastatin 10 mg PO QHS #30 tab 07/20/20 clopidogrel [Plavix] 75 mg PO DAILY #30 tab 07/20/20 lisinopril 5 mg PO DAILY #30 tab 07/20/20 The patient was counseled on the following discharge medications and changes in medications for homegoing were reviewed. The Reason for Use, instructions for use, and potential side effects were reviewed for all new medications. The patient's questions regarding all of their medications were answered. The patient was able to verbally demonstrate an understanding of their discharge medications.
== END 2020-07-20 11:32 | disposition home or self-care (01) ==
LOC: ED 18:04 → PCU 18:28
PROVIDERS: Nurse Practitioner Family; Emergency Provider Emergency Medicine; Visit Provider Family Medicine
DX: R07.89 Other chest pain (principal); K21.9 Gastro-esophageal reflux disease without esophagitis; Z79.899 Other long term (current) drug therapy; R79.89 Other specified abnormal findings of blood chemistry; I10 Essential (primary) hypertension; Z82.49 Family history of ischemic heart disease and other diseases of the circulatory system
CPT/HCPCS: 36415; 71045; 80048; 80061; 84484; 85025; 85379; 93005; 93306; 93458; 99152; 99153; 99218; 99285; 99406; J7030; Q9957; Q9967; A4216; C1769; C1894; C8929; G0378; J3490

== ENCOUNTER 2023-01-29 20:21 | Emergency (ER) | payer OTHER, SELFPAY ==
[2023-01-29 20:22] VITALS: BP 135/73; PULSE 62; RESP 18; TEMP 36.1; O2SAT 99; BMI 30.9
--- NOTE | 2023-01-29 20:55 | EDS_ITS ---
HPI History of Present Illness Chief Complaint: Laceration Detail of Chief Complaint: Skin avulsion tip left thumb Informant: patient Occured/Mechanism Mechanism/Context: Yes injury Comment: Patient cut the tip of his left thumb with knife. Skin has been avulsed down to subcutaneous tissue. Onset/Context/Timing Onset: Hours (At approximately 1830) Context: Sudden Onset Location: Tip of left thumb Current Severity: Mild Maximum Severity: Mild Worsened by: Patient presents because of persistent bleeding Relieved by: Nothing Associated Symptoms Associated Symptoms: Negative for Parasthesia, Weakness or Loss of Funtion Narrative Narrative: Patient is a 47-year-old [id number] male who presents with laceration t o the left thumb. He avulsed the tip. Is down to subcutaneous tissue. He denies paresthesia, anesthesia medics. Tetanus within the last 5 years. He has no other complaints. He is not on anticoagulant. He is on Plavix. Tetanus Immunization: <5 years Prior similar symptoms: No Recent Illness/Hospitalization: No PFSH PFSH Medical History GERD (gastroesophageal reflux disease) History of left heart catheterization (LHC) (~07/20/20) Home Medications omeprazole 20 mg capsule,delayed release 20 mg PO DAILY GERD 07/19/20 [History Last Taken 07/19/20] aspirin 81 mg tablet,delayed release 81 mg PO DAILY@0800 #30 tabs 08/13/20 [Rx Last Taken Unknown] clopidogrel 75 mg tablet (Plavix) 75 mg PO DAILY #30 tabs 08/13/20 [Rx Last Taken Unknown] Allergy/AdvReac Type Severity Reaction Status Date / Time No Known Allergies Allergy Verified 01/29/23 20:22 Family History Father CAD (coronary artery disease) Social History Smoking Status: Never smoker substance use type: does not use ROS ROS ED Hematologic/Lymphatic Hematologic/Lymphatic: Reports easy bleeding and easy bruising EXAM Physical Exam Const Vital Signs: 01/29/23 20:22 Temperature 96.9 F L Temperature Source Temporal Pulse Rate 62 Respiratory Rate 18 Blood Pressure 135/73 H Blood Pressure Mean 93 Pulse Ox 99 Oxygen Delivery Method Room Air Positive well nourished and well developed General Appearance ED: well developed and NAD HEENT normocephalic and atraumatic Eyes PERRL and EOMs intact bilaterally Resp normal respiratory effort Cardio regular rate and regular rhythm Extremity full ROM Extremity Narrative: Patient has avulsed tissue tip of the left thumb that is 3 x 5 mm in size. There is active bleeding. There is no subungual hematoma. Median, radial and ulnar function intact. Neuro oriented x3, CN's II-XII intact bilaterally and moves all extremities Sensorium / Orientation: alert Skin Skin Narrative: Avulsed tissue tip left thumb. Suspect his bleeding is due to the fact that he is on aspirin and Plavix. MDM MDM MDM Narrative Medical decision making narrative: Skin avulsion with persistent bleeding due to antithrombotic. Will have nurse clean wound and pressure dressing. He will be discharged home. Instructed not to remove the dressing for 48 hours. 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, HTN (hypertension), Antiplatelet or antithrombotic long-term use, History of CAD (coronary artery disease) Instructions: Finger Tip Amputation Open Tx Prescriptions: No Action clopidogrel [Plavix] 75 mg tablet 75 mg PO DAILY Qty: 30 2RF Rx Instructions: Prescription to stop after 3 months aspirin 81 mg tablet,delayed release (DR/EC) 81 mg PO DAILY@0800 Qty: 30 2RF Rx Instructions: Prescription to stop after 3 months omeprazole 20 mg Capsule,Delayed Release(Dr/Ec) 20 mg PO DAILY Primary Care Provider: Care Physician,No Primary Referrals: Care Physician,No Primary [Primary Care Provider] - Doctor,Your [Non-Staff] - 3-5 Days if not improving Disposition Disposition: Home, Self Care
== END 2023-01-29 21:24 | disposition home or self-care (01) ==
PROVIDERS: Emergency Provider Emergency Medicine; Visit Provider Emergency Medicine
DX: S61.012A Laceration without foreign body of left thumb without damage to nail, initial encounter (principal); Z79.02 Long term (current) use of antithrombotics/antiplatelets; W26.0XXA Contact with knife, initial encounter; K21.9 Gastro-esophageal reflux disease without esophagitis; Z79.899 Other long term (current) drug therapy; I10 Essential (primary) hypertension; I25.10 Atherosclerotic heart disease of native coronary artery without angina pectoris
CPT/HCPCS: 99282

== ENCOUNTER → 2024-08-26 | Outpatient (CLI) | payer OTHER, SELFPAY ==
--- NOTE | 2024-08-26 06:54 | MRI_ITS ---
PROCEDURE: SPINE CERVICAL (ROUTINE); SPINE THORACIC (ROUTINE); SPINE LUMBAR (ROUTINE) 08/26/2024 REASON FOR EXAM: CHRONIC PAIN W/ RADICULOPATHY; CHRONIC PAIN W/ COMPRESSION FX; LBP , RADICULOPATHY TECHNIQUE: Multiplanar and multisequential MRI of the cervical, thoracic, and lumbar spines was performed without intravenous contrast. COMPARISON: None. FINDINGS: CERVICAL: No acute fracture or subluxation. Vertebral body heights are preserved. Alignment is anatomic, although likely mild positional straightening of the cervical lordosis. No abnormal marrow signal. Minimal spondylotic changes. Asymmetric right disc bulge at C7-T1 encroaching the right neural foramen with moderate-advanced stenosis. No significant disc bulge, spinal canal or neural foraminal narrowing at the remaining levels. Spinal cord appears normal in signal and contour. Unremarkable paravertebral soft tissues. THORACIC: No evidence of acute fracture or subluxation. Alignment is anatomic. No suspicious marrow lesion. Mild multilevel spondylotic changes with varying degrees of disc desiccation and narrowing, multiple degenerative endplate Schmorl's nodes most prominent involving the inferior endplates at T7 and T11, anterior bridging osteophytosis, and facet arthropathy. Small dorsal annular disc bulge slightly indent the ventral thecal sac at multiple levels, with no significant spinal canal or neural foraminal narrowing on either side. Spinal cord appears normal in signal and contour. No abnormal collection within the spinal canal. Unremarkable paravertebral soft tissues. LUMBAR: Note transitional anatomy at the lumbosacral junction with a lumbarized S1 segment with rudimentary disc space at S1-S2. Close attention to spinal numbering recommended. Lumbar vertebrae are preserved in height. Focal anterior superior endplate compression deformity at L1 with marrow edema is likely degenerative, versus acute-subacute focal compression injury. No abnormal marrow signal at the remaining levels. Alignment is anatomic. Minimal spondylotic changes primarily at the thoracolumbar junction. No disc bulge, spinal canal or neural foraminal narrowing is present. Conus appears normal in signal and morphology, terminating at L1. Normal appearance of the cauda equina. Unremarkable paravertebral soft tissues. MRI/Spine Cervical (Routine) IMPRESSION: Mild multilevel spondylotic changes as described, most notably with asymmetric right disc bulge at C7-T1 with moderate-advanced right neural foraminal narrowing. Otherwise, no significant disc bulge, spinal canal or neural foraminal narrowing is present at the remaining levels. Anterior superior endplate deformity with marrow edema at L1 is likely degenera tive in nature, but may represent acute-subacute focal compression injury. Multiple prominent degenerative Schmorl's nodes invo lving the thoracic vertebrae. No vertebral body height loss. No subluxation. Reading Location: [id number]
--- OUTSIDE RECORDS SUMMARY | 2024-08-26 07:10 | XMS RPT_ITS | CCD ---
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 [facility] Care Team Providers Care Nursing Clinical Director Name Role Phone Unavailable Primary Care Provider Unavailevna e Alverto Argueta MD Primary Care Provider Alverto Argueta MD Primary Care Provider Yemi Oliver Attending Unavailable Care Physician, No Primary Primary Care Unava ilable PodlogLucy crespo Primary Care Provider [phone] BRISEIDA EVANS Referring Unavailable PODLOGAR LUCY CANADA~[phone] PODLOGAR Primar y Care Unavailable Alverto Argueta MD Primary Care Provider Podlogar ASSOCIATE PROFESSOR OF KINESIOLOGY.Lucy US Unavailable ALVERTO ARGUETA Primary Care Unavailab SEAN Herrera Attending Unavailable PODLOGARLUCY Referring Unavailable ALVERTO ARGUETA Primary Care Unavailab le PODLOGARLUCY Attending Unavailable PODLOGARLUCY Attending Unavailable ALVERTO ARGUETA Primary Care Unavailab ALVERTO Keita Primary Care Unavailab le SEAN MOORE Attending Unavailable PODLOGARLUCY Referring Unavailable ALVERTO ARGUETA Primary Care Unavailab SEAN Herrera Attending Unavailable PODLOGARLUCY Referring Unavailable ALVERTO ARGUETA Primary Care Unavailab le PODLOGARLUCY Referring Unavailable SEAN MOORE Attending Unavailable ALVERTO ARGUETA Primary Care Unavailab le PODLOGARLUCY Referring Unavailable SEAN MOORE Attending Unavailable ALVERTO ARGUETA Primary Care Unavailab le PODLOGARLUCY Referring Unavailable SEAN MOORE Attending Unavailable ALVERTO ARGUETA Primary Care Unavailab le Medications Current Medications Medication Drug Class(es) Dates Sig (Normalized) Sig (Original) aspirin 81 mg delayed release oral tablet (8 sources) Platelet Aggregation Inhibitor, Nonsteroidal Anti-inflammatory Drug Start: 08-13-2020 take 81 mg by mouth three times daily Aspirin Active 81 MG PO DAILY@0800 August 13, 2020 10:36am Prescription to stop after 3 months Start: 07-20-2020 End: 05-08-2023 take 81 mg by mouth once daily Aspirin Discontinued 81 MG PO DAILY@0800 July 19, 2020 11:00pm August 13, 2020 10:38am Comment on above: Take 81 mg by mouth once daily. clopidogrel 75 mg oral tablet (8 sources) P2Y12 Platelet Inhibitor Start: take 1 tablet by mouth three times daily Clopidogrel (Plavix) 75 mg tablet Active 75 MG PO DAILY August 13, 2020 10:36am Prescription to stop after 3 months Start: 07-20-2020 End: 05-08-2023 take 1 tablet by mouth once daily Clopidogrel (Plavix) 75 mg tablet Discontinued 75 MG PO DAILY July 19, 2020 11:00pm August 13, 2020 10:38am Comment on above: Take 75 mg by mouth once daily. doxycycline hyclate 100 mg oral tablet (2 sources) Tetracycline-cla ss Drug Start: 04-10-2024 End: 04-15-2024 take 1 tablet by mouth twice daily doxycycline (VIBRA-TABS) 100 mg tablet Take 1 tablet by mouth two times a day for 5 days. 10 tablet 04/10/2024 04/15/2024 Active Start: 07-14-2021 End: 07-21-2021 take 1 tablet by mouth twice daily doxycycline monohydrate 100 mg tablet Indications: Sinobronchitis Take 1 tablet by mouth twice daily for 7 days. May transfer to Hyclate if less expensive. 14 tablet 0 07/14/2021 07/21/2021 Active Comment on above: Take 1 tablet by vahe twice daily for 7 days. May transfer to Hyclate if less expensive. omeprazole 20 mg delayed release oral capsule (18 sources) Proton Pump Inhibitor Start: 07-20-19 End: 05-08-19 take 1 capsule by mouth once daily before breakfast omeprazole (PRILOSEC) 20 mg capsule Take 1 capsule by mouth daily before breakfast. 1/2 hr before meal. 30 capsule 05/08/2023 Active Comment on above: Take 1 capsule by mo uth once daily. Take 1 capsule by mo uth daily before breakfast. 1/2 hr before meal. predniSONE 20 mg oral tablet (1 source) Start: 07-15-19 End: 07-20-19 take 2 tablets by mouth once daily predniSONE (DELTASONE) 20 mg tablet Indications: Sinobronchitis Take 2 tablets by mouth once daily for 5 days. 10 tablet 0 07/14/2021 07/19/2021 Active Comment on above: Take 2 tablets by mo uth once daily for 5 days. Completed/Discontinued Medications Medication Drug Class(es) Dates Sig (Normalized) Sig (Original) atorvastatin 10 mg oral tablet (7 sources) HMG-CoA Reductase Inhibitor Start: 07-20-2020 End: 05-08-2023 take 10 mg by mouth at bedtime Atorvastatin Discontinued 10 MG PO AT BEDTIME July 19, 2020 11:00pm August 13, 2020 10:37am Comment on above: Take 10 mg by mouth once daily. benzonatate 100 mg oral capsule (5 sources) Non-narcotic Antitussive Start: 07-14-2021 End: 05-08-2023 take 2 capsules by mouth three times daily as needed benzonatate (TESSALON PERLE) 100 mg capsule Indications: Sinobronchitis Take 2 capsules by mouth three times daily as needed. 30 capsule 0 07/14/2021 05/08/2023 Discontinued (Discontinued by another Health Care Provider) Comment on above: Take 2 capsules by m out three times daily as needed. lisinopril 5 mg oral tablet (7 sources) Angiotensin Converting Enzyme Inhibitor Start: 07-20-2020 End: 05-08-2023 take 5 mg by mouth once daily Lisinopril Discontinued 5 MG PO DAILY July 19, 2020 11:00pm August 13, 2020 10:37am Comment on above: Take 5 mg by mouth o nce daily. 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, initial encounter] 01-29-2023 Chronic Open wounds of extremities (1 source) Laceration without foreign body of left thumb without damage to nail, initial encounter; Translations: [Laceration without foreign body of left thumb without damage to nail, initial encounter] Onset: 3 Episodic Other aftercare (3 sources) Patient encounter status; Translations: [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 term care administrator (current) use of antithrombotics/antiplat elets] 01-29-2023 Episodic Other circulatory disease (1 source) H/O: heart disorder; Translations: [Personal history of other diseases of the circulatory system] 01-29-2023 Episodic Other circulatory disease (1 source) Facial sinus finding; Translations: [Other specified symptoms and signs involving the circulatory and respiratory systems] 06-20-2023 Episodic Other circulatory disease (1 source) Other specified symptoms and signs involving the circulatory and respiratory systems; Translations: [Other specified symptoms and signs involving the circulatory and respiratory systems] Onset: 4 Episodic Other nervous system disorders (1 source) Other chronic pain; Translations: [Chronic left shoulder pain] Onset: 4 Chronic Other non-traumatic joint disorders (1 source) Chronic pain of left upper limb; Translations: [Pain in left shoulder] 05-08-2023 Episodic Other skin disorders (2 sources) Skin lesion; Translations: [Disorder of the skin and subcutaneous tissue, unspecified] Episodic Other upper respiratory infections (2 sources) Chronic sinusitis; Translations: [Chronic sinusitis, unspecified] Chronic Unclassified (1 source) APPOINTMENT CANCELLED 06-25-2023 Past or Other Problems Problem Classification Problem Date Documented Da te Episodic/Chronic Other non-traumatic joint disorders (17 sources) Pain in elbow; Translations: [Pain in left elbow] Onset: 05-14-2023 05-08-2023 Episodic Other non-traumatic joint disorders (1 source) Pain in left elbow; Translations: [Left elbow pain] Onset: 05-08-2023 Episodic Other non-traumatic joint disorders (1 source) Pain in left shoulder; Translations: [Chronic left shoulder pain] Onset: 05-08-2023 Episodic Other screening for suspected conditions (not mental disorders or infectious disease) (3 sources) High troponin I level; Translations: [Other specified abnormal findings of blood chemistry] Onset: 05-08-2023 07-19-2020 Episodic Results Test Name Value Interpretation Reference Range Jaspal Islas 04-10-2024 CNOV Office Visit ([facility] ) MISSY BOSS ([id number]) 1975 M Date Time Provider Department 04/10/24 5:00 PM NATE CARO [facility] During your visit today, we recorded the following information about you: Temperature Pulse Respiration Blood pressure 97.3 degrees 55/minute 18/minute 131/79 Weight 71.9 kg Nate Caro, AGNES.MINER HELPER 04/10/2024 5:05 PM Signed Subjective HPI Nontoxic-appearing 49-year-old male presents urgent care chief complaint cough and chest congestion sinus pressure. Duration of symptoms 8 days. Associated symptoms listed above. Most prominent symptom today is sinus pressure. States sinus pressure is worse in the last 24 hours. Patient had increased maxillary pressure and feels pressure on his teeth as well. Denies OTC medication use recently. Did take some ibuprofen this morning this did help some. History of sinus infections is similar. Denies fevers. Past medical history prescription medications allergies reviewed. .Patient presents with: Cough: Chest and sinus congestion x1 week PAST MEDICAL HISTORY Diagnosis Date GERD (gastroesophageal reflux disease) PAST SURGICAL HISTORY Procedure Laterality Date ESOPHAGOGASTRODUODENO SCOPY TRANSORAL DIAGNOSTIC 07/25/2012 EGD LEFT HEART CATH,PERCUTANEOUS 07/20/2020 ALLERGIES Patient has no known allergies. MEDICATIONS omeprazole (PRILOSEC) 20 mg capsule Take 1 capsule by mouth daily before breakfast. 1/2 hr before meal. FAMILY HISTORY Problem Relation Age of Onset Breast Cancer Mother Lipids Father other (CABG) Father Cancer Maternal Grandmother other (OR) Paternal Grandfather Stroke Paternal Grandfather Social History Tobacco Use Smoking status: Former Types: Cigars Smokeless tobacco: Former Quit date: 06/01/2013 Vaping Use Vaping status: Never Used Substance Use Topics Alcohol use: Yes Alcohol/week: 4.0 standard drinks of alcohol Types: 4 Glasses of Wine (5oz) per week Comment: ocas - weekends, right after dinner Drug use: No BP 131/79 Pulse (!) 55 Temp 36.3 ?C (97.3 ?F) Resp 18 Wt 71.9 kg (158 lb 8.2 oz) SpO2 100% BMI 27.57 kg/m? Review of Systems Constitutional: Negative for chills, fever and malaise/fatigue. HENT: Positive for congestion and sinus pain. Negative for ear discharge, ear pain and sore throat. Eyes: Negative for blurred vision, pain, discharge and redness. Respiratory: Positive for cough. Negative for hemoptysis, sputum production, shortness of breath, wheezing and stridor. Cardiovascular: Negative for chest pain. Gastrointestinal: Negative for abdominal pain, diarrhea, nausea and vomiting. Musculoskeletal: Negative for myalgias. Skin: Negative for itching and rash. Neurological: Negative for dizziness and headaches. Objective Physical Exam Constitutional: General: He is not in acute distress. Appearance: He is not diaphoretic. HENT: Head: Normocephalic. Jaw: No trismus, tenderness, swelling or pain on movement. Right Ear: Tympanic membrane, ear canal and external ear normal. Left Ear: Tympanic membrane, ear canal and external ear normal. Nose: Congestion present. Right Sinus: Maxillary sinus tenderness present. Left Sinus: Maxillary sinus tenderness present. Mouth/Throat: Mouth: Mucous membranes are moist. Pharynx: Oropharynx is clear. Uvula midline. No pharyngeal swelling, oropharyngeal exudate, posterior oropharyngeal erythema or uvula swelling. Eyes: Conjunctiva/sclera: Conjunctivae normal. Pupils: Pupils are equal, round, and reactive to light. Cardiovascular: Rate and Rhythm: Normal rate and regular rhythm. Heart sounds: Normal heart sounds. Pulmonary: Effort: Pulmonary effort is normal. No tachypnea, accessory muscle usage or respiratory distress. Breath sounds: Normal breath sounds. No stridor. No wheezing, rhonchi or rales. Abdominal: General: There is no distension. Palpations: Abdomen is soft. Tenderness: There is no abdominal tenderness. There is no guarding or rebound. Musculoskeletal: Cervical back: Normal range of motion and neck supple. No edema, erythema, rigidity or tenderness. No pain with movement. Normal range of motion. Lymphadenopathy: Cervical: No cervical adenopathy. Skin: General: Skin is warm and dry. Neurological: Mental Status: He is alert and oriented to person, place, and time. ASSESSMENT/PLAN: 1. Bacterial sinusitis - ICD9: 473.9, 041.9, ICD10: J32.9, B96.89 Diagnosed with bacterial sinusitis. Placed on doxycycline. Will use short-term Afrin as discussed. Patient was educated on supportive therapies. Patient will follow up with primary care provider as needed. Patient was instructed to immediately proceed to emergency room for any new, worsening, or symptoms lasting longer than anticipated. The patient's clinical presentation is otherwise unremarkable at this time. Ba (more content not included)... Normal [facility] CNCOon 10-22-2023 CNCO Letter Text Normal [facility] CNTHERAPYon 08-21-2023 CNTHERAPY OT/PT/Speech Visit (PTWS) MISSY BOSS ([id number]) 1975 M Date Time Provider Department 08/21/23 8:30 AM SEAN MOORE PTWS Date Time Provider Department Ranger 08/21/2023 8:30 AM [id number], COREY PTWS Santhosh Gaffney Reason for Visit: Physical Therapy [503] PT Discharge [752] Primary Visit Diagnosis:Pain in left elbow [M25.522] Allergies As of Date: 08/21/2023 (No Known Allergies) Date Reviewed: 06/25/2023 Reviewed by: Elisabet Bridges LPN - Fully Assessed Prescriptions as of 11/15/2023 - omeprazole (PRILOSEC) 20 mg capsule Take 1 capsule by mouth daily before breakfast. 1/2 hr before meal. Normal [facility] CNTHERAPYon 07-30-2023 CNTHERAPY OT/PT/Speech Visit (PTWS) MISSY BOSS ([id number]) 1975 M Date Time Provider Department 07/30/23 10:45 AM SEAN MOORE PTFAHEEM Date Time Provider Department Center 07/30/2023 10:45 AM [id number], COREY PTFAHEEM Gaffney Reason for Visit: PT Progress Note [1596] Primary Visit Diagnosis:Pain in left elbow [M25.522] Allergies As of Date: 07/30/2023 (No Known Allergies) Date Reviewed: 06/25/2023 Reviewed by: Elisabet Bridges LPN - Fully Assessed Prescriptions as of 07/30/2023 - omeprazole (PRILOSEC) 20 mg capsule Take 1 capsule by mouth daily before breakfast. 1/2 hr before meal. Normal [facility] CNTHERAPYon 07-10-2023 CNTHERAPY OT/PT/Speech Visit (PTWS) MISSY BOSS ([id number]) 1975 Date Time Provider Department 07/10/23 11:00 AM SEAN MOORE Date Time Provider Department Center 07/10/2023 11:00 AM [id number] LIN Reason for Visit: Physical Therapy [503] Primary Visit Diagnosis:Pain in left elbow [M25.522] Allergies As of Date: 07/10/2023 (No Known Allergies) Date Reviewed: 06/25/2023 Reviewed by: Elisabet Bridges LPN - Fully Assessed Prescriptions as of 07/10/2023 - omeprazole (PRILOSEC) 20 mg capsule Take 1 capsule by mouth daily before breakfast. 1/2 hr before meal. Normal [facility] CNTHERAPYon 07-02-2023 CNTHERAPY OT/PT/Speech Visit (PTWS) MISSY BOSS ([id number]) 1975 Date Time Provider Department 07/02/23 12:15 PM SEAN MOORE Date Time Provider Department Center 07/02/2023 12:15 PM [id number] LAMBERT Reason for Visit: Physical Therapy [503] Primary Visit Diagnosis:Pain in left elbow [M25.522] Allergies As of Date: 07/02/2023 (No Known Allergies) Date Reviewed: 06/25/2023 Reviewed by: Elisabet Bridges LPN - Fully Assessed Prescriptions as of 07/02/2023 - omeprazole (PRILOSEC) 20 mg capsule Take 1 capsule by mouth daily before breakfast. 1/2 hr before meal. Normal [facility] CNTHERAPYon 06-26-2023 CNTHERAPY OT/PT/Speech Visit (PTWS) MISSY BOSS ([id number]) 1975 M Date Time Provider Department 06/26/23 12:45 PM SEAN MOORE Date Time Provider Department [facility] 06/26/2023 12:45 PM [id number] MOORE Reason for Visit: Physical Therapy [503] Primary Visit Diagnosis:Pain in left elbow [M25.522] Allergies As of Date: 06/26/2023 (No Known Allergies) Date Reviewed: 06/25/2023 Reviewed by: Elisabet Bridges LPN - Fully Assessed Prescriptions as of 06/29/2023 - omeprazole (PRILOSEC) 20 mg capsule Take 1 capsule by mouth daily before breakfast. 1/2 hr before meal. Side Stitcher: Therapy (PT/OT/Speech/Resp) ID: [id number] 06/26/2023 1:27 PM Author: SEAN MOORE Signed by SEAN MOORE PT on 06/26/2023 at 1:27 PM Document text: Program_ID:[id number] Access Code: [email or web address] URL: [email or web address] Date: 06-26-2023 Prepared By: Sean Moore Program Notes Exercises - Shoulder External Rotation with Anchored Resistance - 1 x daily - 7 x weekly - 4 sets - 10 reps - Shoulder Internal Rotation with Resistance - 1 x daily - 7 x weekly - 4 sets - 10 reps - Single Arm Scaption with Dumbbell - 1 x daily - 7 x weekly - 4 sets - 10 reps - Wrist Extensor Stretch With Elbow Flexed: Progression From Elbow at Side - 1 x daily - 7 x weekly - 4 sets - reps ----- Normal [facility] THERAPY NTon 06-26-2023 THERAPY NT HNO ID: [id number] Author: SEAN MOORE PT Service: ? Author Type: Physical Therapist Type: Therapy (PT/OT/Speech/Resp) Filed: 06/26/2023 13:27 Note Text: Program_ID:[id number] Access Code: [email or web address] URL: [email or web address] Date: 06-26-2023 Prepared By: Sean Moore Program Notes Exercises - Shoulder External Rotation with Anchored Resistance - 1 x daily - 7 x weekly - 4 sets - 10 reps - Shoulder Internal Rotation with Resistance - 1 x daily - 7 x weekly - 4 sets - 10 reps - Single Arm Scaption with Dumbbell - 1 x daily - 7 x weekly - 4 sets - 10 reps - Wrist Extensor Stretch With Elbow Flexed: Progression From Elbow at Side - 1 x daily - 7 x weekly - 4 sets - reps Normal [facility] CNOV[facility] ([id number]) 1975 M Date Time Provider Department 06/25/23 7:20 AM LUCY RINALDI During your visit today, we recorded the following information about you: Pulse Respiration Blood pressure Weight 57/minute 18/minute 122/80 74.3 kg Lucy Rinaldi APRN.CNP 06/25/2023 11:15 AM Signed No charge for visit as patient only had paperwork which was not able to be completed by myself. Lucy Rinaldi APRN.MINER HELPER Allergies As of Date: 06/25/2023 (No Known Allergies) Date Reviewed: 06/25/2023 Reviewed by: Elisabet Bridges LPN - Fully Assessed Reason for Visit: Forms [913] Primary Visit Diagnosis:APPOINTMENT CANCELLED Prescriptions as of 06/25/2023 - omeprazole (PRILOSEC) 20 mg capsule Take 1 capsule by mouth daily before breakfast. 1/2 hr before meal. Problem List As Of Date 06/25/2023 Noted Resolved GERD (gastroesophageal reflux disease) [K21.9] 12/06/2011 Pain in left elbow [M25.522] 05/14/2023 Disposition: Return if symptoms worsen or fail to improve. Follow-up and Disposition History for Encounter Date Provider Department Center 06/25/2023 [id number] RINALDI [facility] Encounter Status:Closed by [facility] ([facility]ICK[facility]) GERAMISSY ([id number]) 1975 M Date Time Provider Department 06/25/23 LUCY RINALDI During your visit today, we recorded the following information about you: Lucy Rinaldi APRN.CNP 06/25/2023 11:13 AM Signed Please let patient know I have reviewed the information with Dr. Argueta and he feels there is not enough irrefutable evidence in our records to write a letter for the disability. I would recommend seeing an independent nurses medical assistants phlebotomists as it suggested to help with his claim. I am not going to charge him for the visit this morning. DANIKA Weber Michelle, LPN 06/25/2023 12:34 PM Signed Patient notified. Voices understanding. Appreciative for the information. Patient doesn't need forms back, you may shred them. ROBERT Grier Julie, APRN.CNP 06/25/2023 12:35 PM Signed Reviewed. Lucy Rinaldi APRN.CNP Allergies As of Date: 06/25/2023 (No Known Allergies) Date Reviewed: 06/25/2023 Reviewed by: Elisabet Bridges LPN - Fully Assessed Reason for Visit: Forms [913] Prescriptions as of 06/25/2023 - omeprazole (PRILOSEC) 20 mg capsule Take 1 capsule by mouth daily before breakfast. 1/2 hr before meal. Problem List As Of Date 06/25/2023 Noted Resolved GERD (gastroesophageal reflux disease) [K21.9] 12/06/2011 Pain in left elbow [M25.522] 05/14/2023 Encounter Status:Closed by MAHNAZ MONTERO on 06/25/23 Normal [facility] XR PARANASAL SINUSES 3+ VIEW Son 06-20-2023 XR PARANASAL SINUSES 3+ VIEWS EXAM: XR PARANASAL SINUSES 3+ VIEWS. DATE OF EXAM: 06/20/2023 2:31 PM. HISTORY: SINUSITIS. COMPARISON: None. IMPRESSION: FINDINGS/IMPRESSION: Paranasal sinuses appear well aerated. No air-fluid levels. No acute bony abnormality or bony erosive change. Suggestion of S-shaped nasal septal deviation with inferior rightward nasal deviation with apex bony spur. -------- FINAL REPORT -------- Dictated By: Alexis Barfield Dictated Date: 06/20/2023 15:32 Assigned Physician: Alexis Barfield Reviewed and Electronically Signed By: Alexis Barfield Signed Date: 06/20/2023 15:34 Workstation ID: [id number] Transcribed By: Self Edit Transcribed Date: 06/20/2023 15:32 Normal [facility] XR Paranasal Sinuses 3+ View son 06-20-2023 FINDINGS/IMPRESSION: Paranasal sinuses appear well aerated. No air-fluid levels. No acute bony abnormality or bony erosive change. Suggestion of S-shaped nasal septal deviation with inferior rightward nasal deviation with apex bony spur. -------- FINAL REPORT -------- Dictated By: Alexis Barfield Dictated Date: 06/20/2023 15:32 Assigned Physician: Alexis Barfield Reviewed and Electronically Signed By: Alexis Barfield Signed Date: 06/20/2023 15:34 Workstation ID: [id number] Transcribed By: Self Edit Transcribed Date: 06/20/2023 15:32 POWERSCRIBE EXAM: XR PARANASAL SINUSES 3+ VIEWS. DATE OF EXAM: 06/20/2023 2:31 PM. HISTORY: SINUSITIS. COMPARISON: None. POWERSCRIBE Alexis Barfield MD - 06/20/2023 EXAM: XR PARANASAL SINUSES 3+ VIEWS. DATE OF EXAM: 06/20/2023 2:31 PM. HISTORY: SINUSITIS. COMPARISON: None. IMPRESSION: FINDINGS/IMPRESSION: Paranasal sinuses appear well aerated. No air-fluid levels. No acute bony abnormality or bony erosive change. Suggestion of S-shaped nasal septal deviation with inferior rightward nasal deviation with apex bony spur. -------- FINAL REPORT -------- Dictated By: Alexis Barfield Dictated Date: 06/20/2023 15:32 Assigned Physician: Alexis Barfield Reviewed and Electronically Signed By: Alexis Barfield Signed Date: 06/20/2023 15:34 Workstation ID: [id number] Transcribed By: Self Edit Transcribed Date: 06/20/2023 15:32 [facility] Radiology Study observation (narrative) [facility] [employer] XR Paranasal Sinuses 3+ View sOrdered By: Alexis Barfield on 06-20-2023 [employer] Work Phone: CNTHERAPYon 05-14-2023 CNTHERAPY OT/PT/Speech Visit (PTWS) MISSY BOSS ([id number]) 1975 M Date Time Provider Department 05/14/23 10:00 AM SEAN MOORE PTFAHEEM Date Time Provider Department Center 05/14/2023 10:00 AM [id number] MOORE Reason for Visit: PT Eval [747] Primary Visit Diagnosis:Pain in left elbow [M25.522] Allergies As of Date: 05/14/2023 (No Known Allergies) Date Reviewed: 05/08/2023 Reviewed by: Elisabet Bridges LPN - Fully Assessed Prescriptions as of 05/14/2023 - omeprazole (PRILOSEC) 20 mg capsule Take 1 capsule by mouth daily before breakfast. 1/2 hr before meal. Normal [facility] CNOVon 05-08-2023 CNOV Office Visit ([facility] ) MISSY BOSS ([id number]) 1975 M Date Time Provider Department 05/08/23 11:00 AM LUCY RINALDI During your visit today, we recorded the following information about you: Pulse Respiration Blood pressure Weight 53/minute 16/minute 124/72 75.2 kg Height 1.615 m Lucy Rinaldi APRN.MINER HELPER 05/08/2023 12:29 PM Signed 05/03/2023 Patient presents with: Physical SUBJECTIVE: This is a 48 year old that is here today for Above Complaints. Since last office visit has been in good health without ER visits or hospitalizations. Has not been seen by primary care in over two years. Left shoulder and left elbow pain bothering him since 2011, progressively worsening. Pain radiates from shoulder down to elbow. Pain is intermittent and aggravated by working out. Pain is aching. Has used some heat, ice and ibuprofen. Ibuprofen and rest helps at times. Denies past injury or surgery, swelling, or redness Reports he has upcoming physical agility test for [employer] and fears this will aggravate his pain PAST MEDICAL HISTORY Diagnosis Date GERD (gastroesophageal reflux disease) ALLERGIES Patient has no known allergies. MEDICATIONS No current outpatient medications on file. No current facility-administered medications for this visit. Medications and allergies reviewed by this provider. SOCIAL HISTORY Social History Tobacco Use Smoking status: Former Types: Cigars Smokeless tobacco: Former Quit date: 06/01/2013 Vaping Use Vaping Use: Never used Substance Use Topics Alcohol use: Yes Alcohol/week: 4.0 standard drinks of alcohol Types: 4 Glasses of Wine (5oz) per week Comment: ocas - weekends, right after dinner Drug use: No REVIEW OF SYSTEMS GENERAL: No weight loss, malaise or fevers HEENT: Negative for frequent or significant headaches, No changes in hearing or vision, no nose bleeds or other nasal problems NECK: Negative for lumps, goiter, pain and significant neck swelling RESPIRATORY: Negative for cough, hemoptysis, wheezing, COPD, dyspnea or shortness of breath CARDIOVASCULAR: Negative for chest pain, leg swelling, hypertension, CHF or palpitations GI: No nausea, vomiting, or diarrhea : No history of dysuria, frequency or incontinence MUSCULOSKELETAL: Negative for joint pain or swelling, back pain or muscle pain and low back pain SKIN: Negative for lesions, rash, and itching PSYCH: Negative for sleep disturbance, mood disorder and recent psychosocial stressors HEMATOLOGY/LYMPHOLOGY : Negative for prolonged bleeding, bruising easily or swollen nodes ENDOCRINE: Negative for cold or heat intolerance, polyuria, polydipsia and goiter NEURO: No history of headaches, syncope, paralysis, seizures or tremors All other reviewed and negative other than HPI. OBJECTIVE: BP 124/72 Pulse (!) 53 Resp 16 Ht 161.5 cm (5' 3.58) Wt 75.2 kg (165 lb 12.8 oz) SpO2 99% BMI 28.83 kg/m? . Vital signs reviewed by this provider. APPEARANCE Well appearing, alert, in no acute distress, well-hydrated, well nourished. EYES conjunctiva and sclera normal. Ears: R TM - clear with good landmarks, L TM - clear with good landmarks NECK Supple, no adenopathy; thyroid symmetric, normal size, no bruits HEART RRR with normal S1 and S2, no murmurs, no gallops, no JVD appreciated LUNG clear to auscultation. No wheezes, rhonchi or rales EXTREMITIES Extremities normal, No deformities, No skin discoloration, and No edema SKIN Skin color, texture, turgor normal, no suspicious rashes or lesions to exposed skin LEFT SHOULDER/ELBOW: No obvious deformity, swelling, or erythema. Mild TTP over posterior shoulder. TTP along bicep tendon. FROM without difficulty. Some discomfort with abduction and external rotation. Negative Balderas and Nicoleer's Latest Ref Rng 07/30/2020 Protein, Total 6.3 - 8.0 g/dL 7.7 Albumin 3.9 - 4.9 g/dL 4.6 Calcium 8.5 - 10.2 mg/dL 10.0 Bilirubin, Total 0.2 - 1.3 mg/dL 0.5 Alkaline Phosphatase 38 - 113 U/L 83 AST 14 - 40 U/L 28 Glucose 74 - 99 mg/dL 92 BUN 9 - 24 mg/dL 20 Creatinine 0.73 - 1.22 mg/dL 0.83 Sodium 136 - 144 mmol/L 140 Potassium 3.7 - 5.1 mmol/L 4.6 Chloride 97 - 105 mmol/L 105 CO2 22 - 30 mmol/L 23 Anion Gap 9 - 18 mmol/L 12 ALT 10 - 54 U/L 19 eGFR- >60 eGFR-All Other Races . >60 Total Cholesterol, Nonfasting <200 mg/dL 169 Triglycerides, Nonfasting <150 mg/dL 90 HDL Cholesterol, Nonfasting >39 mg/dL 46 LDL Cholesterol, Nonfasting <100 mg/dL 105 (H) Non HDL Cholesterol, Nonfasting <130 mg/dL 123 VLDL Cholesterol, Nonfasting <30 mg/dL 18 Total Chol/HDL Ratio, Nonfasting <5.10 mg/dL 3.67 LDL/HDL Ratio, Nonfasting <2.54 mg/dL 2.28 Legend: (H) High Colorectal Cancer Screening Never done Influenza Vaccine(1) due on 08/12/2023 HIV Screening due on 05/07/2024 Covid-19 Vaccine(2 - 202 (more content not included)... Normal [facility] Emergency Department Summary on 01-29-2023 Emergency Department Summary [facility] Medical Records Department [address] [place] [address] Emergency Department Summary 01/29/23 MR#: [id number] Acct: [id number] Name: MISSY BOSS Rep #: [id number] : 1975 47 From: Yemi Oliver MD PCP: Care Physician,No Primary Status:REG ER Location: ED HPI History of Present Illness Chief Complaint: Laceration Detail of Chief Complaint: Skin avulsion tip left thumb Informant: patient Occured/Mechanism Mechanism/Context: Yes injury Comment: Patient cut the tip of his left thumb with knife. Skin has been avulsed down to subcutaneous tissue. Onset/Context/Timing Onset: Hours (At approximately 1830) Context: Sudden Onset Location: Tip of left thumb Current Severity: Mild Maximum Severity: Mild Worsened by: Patient presents because of persistent bleeding Relieved by: Nothing Associated Symptoms Associated Symptoms: Negative for Parasthesia, Weakness or Loss of Funtion Narrative Narrative: Patient is a 47-year-old [id number] male who presents with laceration to the left thumb. He avulsed the tip. Is down to subcutaneous tissue. He denies paresthesia, anesthesia medics. Tetanus within the last 5 years. He has no other complaints. He is not on anticoagulant. He is on Plavix. Tetanus Immunization: <5 years Prior similar symptoms: No Recent Illness/Hospitalizati on: No PFSH PFSH Medical History GERD (gastroesophageal reflux disease) History of left heart catheterization (LHC) ( 07/20/20) Home Medications omeprazole 20 mg capsule,delayed release 20 mg PO DAILY GERD 07/19/20 [History Last Taken 07/19/20] aspirin 81 mg tablet,delayed release 81 mg PO DAILY@0800 #30 tabs 08/13/20 [Rx Last Taken Unknown] clopidogrel 75 mg tablet (Plavix) 75 mg PO DAILY #30 tabs 08/13/20 [Rx Last Taken Unknown] Allergy/AdvReac Type Severity Reaction Status Date / Time No Known Allergies Allergy Verified 01/29/23 20:22 Family History Father CAD (coronary artery disease) Social History Smoking Status: Never smoker substance use type: does not use ROS ROS ED Hematologic/Lymphatic Hematologic/Lymphatic : Reports easy bleeding and easy bruising EXAM Physical Exam Const Vital Signs: 01/29/23 20:22 Temperature 96.9 F L Temperature Source Temporal Pulse Rate 62 Respiratory Rate 18 Blood Pressure 135/73 H Blood Pressure Mean 93 Pulse Ox 99 Oxygen Delivery Method Room Air Positive well nourished and well developed General Appearance ED: well developed and NAD HEENT normocephalic and atraumatic Eyes PERRL and EOMs intact bilaterally Resp normal respiratory effort Cardio regular rate and regular rhythm Extremity full ROM Extremity Narrative: Patient has avulsed tissue tip of the left thumb that is 3 x 5 mm in size. There is active bleeding. There is no subungual hematoma. Median, radial and ulnar function intact. Neuro oriented x3, CN's II-XII intact bilaterally and moves all extremities Sensorium / Orientation: alert Skin Skin Narrative: Avulsed tissue tip left thumb. Suspect his bleeding is due to the fact that he is on aspirin and Plavix. MDM MDM MDM Narrative Medical decision making narrative: Skin avulsion with persistent bleeding due to antithrombotic. Will have nurse clean wound and pressure dressing. He will be discharged home. Instructed not to remove the dressing for 48 hours. 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, HTN (hypertension), Antiplatelet or antithrombotic long- term use, History of CAD (coronary artery disease) Instructions: Finger Tip Amputation Open Tx Prescriptions: No Action clopidogrel [Plavix] 75 mg tablet 75 mg PO DAILY Qty: 30 2RF Rx Instructions: Prescription to stop after 3 months aspirin 81 mg tablet,delayed release (DR/EC) 81 mg PO DAILY@0800 Qty: 30 2RF Rx Instructions: Prescription to stop after 3 months omeprazole 20 mg Capsule,Delayed Release(Dr/Ec) 20 mg PO DAILY Primary Care Provider: Care Physician,No Primary Referrals: Care Physician,No Primary [Primary Care Provider] - Doctor,Your [Non-Staff] - 3-5 Days if not improving Disposition Disposition: Home, Self Care What to do if you have Problems For any increased pain, shortness of breath, bleeding, nausea or vomiting, chest pain, or any unexpected problems, contact your Primary Care Provider. Call [facility] ([phone]) or report to the closest Emergency Room. Call 911 if necessary. 01/29/232107 Cosigner Signature (if applicable): CC: No Pr (more content not included)... Normal [facility] Vital Signs Date Time Vital Sign Value Performing Clinician Facility 04-10-2024 16:52-0500 Body mass index (BMI) [Ratio] 27.57 kg/m2 Nate Caro APRN.CNP Work Phone: [facility] 04-10-2024 16:52-0500 Body temperature 97.3 [degF] Nate Caro APRN.CNP Work Phone: [facility] 04-10-2024 16:52-0500 Body weight 71.9 kg Nate Caro APRN.CNP Work Phone: [facility] 04-10-2024 16:52-0500 Diastolic blood pressure 79 mm[Hg] Nate Caro APRN.CNP Work Phone: [facility] 04-10-2024 16:52-0500 Heart rate 55 /min [facility] ASSOCIATE PROFESSOR OF KINESIOLOGY.MINER HELPER Work Phone: [facility] 04-10-2024 16:52-0500 Respiratory rate 18 /min [facility] ASSOCIATE PROFESSOR OF KINESIOLOGY.MINER HELPER Work Phone: [facility] 04-10-2024 16:52-0500 SaO2% (BldA) [Mass fraction] 100 % Nate Pendlematy ASSOCIATE PROFESSOR OF KINESIOLOGY.MINER HELPER Work Phone: [facility] 04-10-2024 16:52-0500 Systolic blood pressure 131 mm[Hg] [facility] ASSOCIATE PROFESSOR OF KINESIOLOGY.MINER HELPER Work Phone: [facility] 06-25-2023 07:22-0400 Body mass index (BMI) [Ratio] 28.49 kg/m2 Lucy Podlogar ASSOCIATE PROFESSOR OF KINESIOLOGY.MINER HELPER Work Phone: [facility] 06-25-2023 07:22-0400 Body weight 74.3 kg Lucy Podlogar ASSOCIATE PROFESSOR OF KINESIOLOGY.MINER HELPER Work Phone: [facility] 06-25-2023 07:22-0400 Diastolic blood pressure 80 mm[Hg] Lucy Podlogar ASSOCIATE PROFESSOR OF KINESIOLOGY.MINER HELPER Work Phone: [facility] 06-25-2023 07:22-0400 Heart rate 57 /min Lucy Podlogar ASSOCIATE PROFESSOR OF KINESIOLOGY.MINER HELPER Work Phone: [facility] 06-25-2023 07:22-0400 Respiratory rate 18 /min Lucy Podlogar ASSOCIATE PROFESSOR OF KINESIOLOGY.MINER HELPER Work Phone: [facility] 06-25-2023 07:22-0400 SaO2% (BldA) [Mass fraction] 98 % Lucy Podlogar ASSOCIATE PROFESSOR OF KINESIOLOGY.MINER HELPER Work Phone: [facility] 06-25-2023 07:22-0400 Systolic blood pressure 122 mm[Hg] Lucy Podlogar ASSOCIATE PROFESSOR OF KINESIOLOGY.MINER HELPER Work Phone: [facility] 05-08-2023 11:11-0400 Body height 161.5 cm Lucy Podlogar ASSOCIATE PROFESSOR OF KINESIOLOGY.MINER HELPER Work Phone: [facility] 05-08-2023 11:11-0400 Body weight 75.21 kg Lucy Podlogar ASSOCIATE PROFESSOR OF KINESIOLOGY.MINER HELPER Work Phone: [facility] 05-08-2023 11:11-0400 Diastolic blood pressure 72 mm[Hg] Lucy Podlogar ASSOCIATE PROFESSOR OF KINESIOLOGY.MINER HELPER Work Phone: [facility] 05-08-2023 11:11-0400 Heart rate 53 /min Lucy Podlogar ASSOCIATE PROFESSOR OF KINESIOLOGY.MINER HELPER Work Phone: [facility] 05-08-2023 11:11-0400 Respiratory rate 16 /min Lucy Podlogar ASSOCIATE PROFESSOR OF KINESIOLOGY.MINER HELPER Work Phone: [facility] 05-08-2023 11:11-0400 SaO2% (BldA) [Mass fraction] 99 % Lucy Podlogar ASSOCIATE PROFESSOR OF KINESIOLOGY.MINER HELPER Work Phone: [facility] 05-08-2023 11:11-0400 Systolic blood pressure 124 mm[Hg] Lucy Podlogar ASSOCIATE PROFESSOR OF KINESIOLOGY.MINER HELPER Work Phone: [facility] 01-29-2023 20:22-0500 Body height 162.56 cm [facility] 01-29-2023 20:22-0500 Body mass index (BMI) [Ratio] 30.9 kg/m2 [facility] 01-29-2023 20:22-0500 Body temperature 96.9 [degF] [facility] 01-29-2023 20:22-0500 Body weight 81.91 kg [facility] 01-29-2023 20:22-0500 Diastolic blood pressure 73 mm[Hg] [facility] 01-29-2023 20:22-0500 Heart rate 62 /min [facility] 01-29-2023 20:22-0500 Respiratory rate 18 /min [facility] 01-29-2023 20:22-0500 SaO2% (BldA) [Mass fraction] 99 % [facility] 01-29-2023 20:22-0500 Systolic blood pressure 135 mm[Hg] [facility] 07-14-2021 13:15-0400 Body temperature 98.01 [degF] Grzegorz Bryant ASSOCIATE PROFESSOR OF KINESIOLOGY.MINER HELPER Work Phone: [facility] 07-14-2021 13:15-0400 Body weight 78.2 kg Grzegorz Bryant ASSOCIATE PROFESSOR OF KINESIOLOGY.MINER HELPER Work Phone: [facility] 07-14-2021 13:15-0400 Diastolic blood pressure 84 mm[Hg] Grzegorz Bryant ASSOCIATE PROFESSOR OF KINESIOLOGY.MINER HELPER Work Phone: [facility] 07-14-2021 13:15-0400 Heart rate 76 /min Grzegorz Bryant ASSOCIATE PROFESSOR OF KINESIOLOGY.MINER HELPER Work Phone: [facility] 07-14-2021 13:15-0400 Respiratory rate 16 /min Grzegorz Bryant ASSOCIATE PROFESSOR OF KINESIOLOGY.MINER HELPER Work Phone: [facility] 07-14-2021 13:15-0400 SaO2% (BldA) [Mass fraction] 100 % Grzegorz Bryant ASSOCIATE PROFESSOR OF KINESIOLOGY.MINER HELPER Work Phone: [facility] 07-14-2021 13:15-0400 Systolic blood pressure 132 mm[Hg] Grzegorz Bryant ASSOCIATE PROFESSOR OF KINESIOLOGY.MINER HELPER Work Phone: [facility] Encounters Encounter Date Encounter Type Care Provider Facility Start: 04-10-2024 End: 04-10-2024 ambulatory ALVERTO ARGUETA Facility:[facility] Start: 04-10-2024 End: 04-10-2024 Office outpatient visit 25 minutes Nate Caro ASSOCIATE PROFESSOR OF KINESIOLOGY.MINER HELPER Work Phone: [facility] Comment on above: Bacterial sinusitis (Primary Dx) Start: 02-10-2024 End: 02-10-2024 ambulatory Pooja Denson RN NURSE [employer]LECT[employer] W[employer]DER SETTER Comment on above: health information Start: 08-21-2023 End: 08-21-2023 ambulatory Sean Moore PT Work Phone: [facility] Comment on above: Pain in left elbow ( Primary Dx) Start: 07-30-2023 End: 07-30-2023 ambulatory Sean Moore PT Work Phone: [facility] Comment on above: Pain in left elbow ( Primary Dx) Start: 07-10-2023 End: 07-10-2023 ambulatory Sean Moore PT Work Phone: [facility] Comment on above: Pain in left elbow ( Primary Dx) Start: 07-02-2023 End: 07-02-2023 ambulatory Sean Moore PT Work Phone: [facility] Comment on above: Pain in left elbow ( Primary Dx) Start: 06-26-2023 End: 06-26-2023 ambulatory Sean Moore PT Work Phone: [facility] Comment on above: Pain in left elbow ( Primary Dx) Start: 06-25-2023 Telephone encounter Lucy sutherland APRN.MINER HELPER Work Phone: [facility] [place] Comment on above: Forms Start: 06-25-2023 End: 06-25-2023 ambulatory LUCY RINALDI Facility:[facility] Start: 06-25-2023 End: 06-25-2023 Patient encounter procedure Lucy Rinaldi APRN.MINER HELPER Work Phone: [facility] Comment on above: APPOINTMENT CANCELLE D (Primary Dx) Start: 06-20-2023 ambulatory BRISEIDA EVANS [facility] Start: 06-20-2023 End: 06-20-2023 Evaluation and management of inpatient [facility] Start: 06-20-2023 End: 06-20-2023 Subsequent hospital visit by physician [facility] Comment on above: Sinus complaint Start: 05-14-2023 End: 05-14-2023 ambulatory Sean Eduard PT Work Phone: [facility] Comment on above: Pain in left elbow ( Primary Dx) Start: 05-08-2023 End: 05-08-2023 ambulatory ALVERTO ARGUETA Facility:[facility] Start: 05-08-2023 End: 05-08-2023 Patient encounter procedure Lucy Rinaldi APRN.MINER HELPER Work Phone: [facility] Comment on above: Annual physical exam (Primary Dx); Screening for colon cancer; Screening for hyperlipidemia; Left elbow pain; Chronic left shoulder pain Start: 01-29-2023 End: 01-29-2023 Emergency department patient visit [facility] Facility:[facility] Start: 01-29-2023 End: 01-29-2023 Emergency department patient visit [facility] Work Phone: Start: 12-23-2021 Telephone encounter Mayur Argueta MD Work Phone: [facility] Comment on above: Patient Question Start: 08-09-2021 Telephone encounter Mayur Argueta MD Work Phone: [facility] Comment on above: dermatology referrra l Start: 08-09-2021 End: 08-09-2021 ambulatory Lucy Rinaldi APRN.MINER HELPER Work Phone: [facility] Comment on above: Skin lesion (Primary Dx) Start: 08-09-2021 End: 08-09-2021 Telemedicine consultation with patient Lucy Rinaldi APRN.CNP Work Phone: [facility] Start: 07-14-2021 End: 07-14-2021 Patient encounter procedure Grzegorz Bryant APRN.CNP Work Phone: [facility] Comment on above: Sinobronchitis (Prim satish Dx) Start: 11-26-2020 Telephone encounter Lucy sutherland APRN.MINER HELPER Work Phone: [facility] Comment on above: error Procedures Date Procedure Procedure Detail Performing Clinician Start: 06-20-2023 Radex sinuses parana krystyna compl minimum 3 views Briseida Evans MD Work Phone: Start: 07-30-2020 Adult depression screening assessment Grzegorz Bryant APRN.CNP Work Phone: Start: 07-30-2020 Lipid 1996 panel - S malcom or Plasma Lucy Rinaldi APRN.MINER HELPER Work Phone: Plan of Treatment Date Care Activity Detail Author Start: 12-18-2030 Urine microalbumin profile DTaP,Tdap,Td Vaccine (3 - Td or Tdap) [facility] Start: 07-30-2025 Lipid panel Lipid Screening [facility] Start: 07-30-2025 LIPID SCREEN LIPID SCREEN [facility] Start: 05-07-2024 Covid-19 Vaccine ( season) Covid-19 Vaccine () [facility] Comment on above: Postponed from 10/13 (Declined at this time) Start: 05-07-2024 HIV screening HIV Screening [facility] Comment on above: Postponed from 03/12 (Declined at this time) Start: 10-14-2023 Covid-19 Vaccine () Covid-19 Vaccine () [facility] Start: 10-14-2023 Influenza vaccination [facility] Start: 09-04-2023 End: 09-04-2023 ambulatory 09/04/2023 8:30 AM EDT OT/PT/Speech Visit [facility] [address] [place] [address] Sean Moore PT [address] [facility] [place] [id number] Pain in left elbow [M25.522] [facility] Comment on above: Pain in left elbow [ M25.522] Start: 08-28-2023 End: 08-28-2023 Patient encounter procedure 08/28/2023 9:45 AM EDT Appointment Ambulatory Surgery [address] [place] [address] MD [address] [address] Screening for colon cancer [Z12.11] [facility] Comment on above: Screening for colon cancer [Z12.11] Start: 08-27-2023 End: 08-27-2023 ambulatory 08/27/2023 8:30 AM EDT OT/PT/Speech Visit [facility] [address] [place] [address] Sean Moore, PT [address] [place] [address] Pain in left elbow [M25.522] [facility] Comment on above: Pain in left elbow [ M25.522] Start: 08-21-2023 End: 08-21-2023 ambulatory 08/21/2023 8:30 AM EDT OT/PT/Speech Visit [facility] [address] [place] [address] Sean Moore, PT [address] [facility] [place] [address] Pain in left elbow [M25.522] [facility] Comment on above: Pain in left elbow [ M25.522] Start: 08-14-2023 End: 08-14-2023 ambulatory 08/14/2023 8:30 AM EDT OT/PT/Speech Visit [facility] [address] [place] [address] Sean Moore, PT [address] [facility] [place] [place] [address] Pain in left elbow [M25.522] [facility] Comment on above: Pain in left elbow [ M25.522] Start: 08-12-2023 Influenza vaccination Influenza Vacc ine (#1) [facility] Comment on above: Postponed from 10/13 (Declined at this time) Start: 07-31-2023 Diabetes Screening Diabetes Screenin g [facility] Start: 07-16-2023 End: 07-16-2023 ambulatory 07/16/2023 7:00 AM EDT OT/PT/Speech Visit [facility] [address] [place] [address] Sean Moore, PT [address] [place] [address] M25.512 (ICD-10-CM) - Acute pain of left shoulder [facility] Comment on above: M25.512 (ICD-10-CM) - Acute pain of left shoulder Start: 07-10-2023 End: 07-10-2023 ambulatory 07/10/2023 11:00 AM EDT OT/PT/Speech Visit [facility] [address] [place] [address] Sean Moore, PT [address] [place] [address] M25.512 (ICD-10-CM) - Acute pain of left shoulder [facility] Comment on above: M25.512 (ICD-10-CM) - Acute pain of left shoulder Start: 07-02-2023 End: 07-02-2023 ambulatory 07/02/2023 12:15 PM EDT OT/PT/Speech Visit [facility] [address] [place] [address] Sean Moore, PT [address] [place], [place] [id number] M25.512 (ICD-10-CM) - Acute pain of left shoulder [facility] Comment on above: M25.512 (ICD-10-CM) - Acute pain of left shoulder Start: 06-26-2023 End: 06-26-2023 ambulatory 06/26/2023 12:45 PM EDT OT/PT/Speech Visit [facility] [address] [place] [address] Sean Moore, PT [address] [place], [place] [id number] M25.512 (ICD-10-CM) - Acute pain of left shoulder [facility] Comment on above: M25.512 (ICD-10-CM) - Acute pain of left shoulder Start: 06-20-2023 Adolescent depressio n screening assessment Depression Screening [facility] Start: 06-20-2023 Hepatitis C screening Hepatitis C Sc reening [facility] Start: 06-20-2023 HIV screening HIV Screening [facility] Start: 06-20-2023 Lipid panel Cholesterol Sc reening (Lipid Panel) [facility] Start: 06-20-2023 Screening for malign ant neoplasm of colon Colorectal Cancer Screening: Colonoscopy [facility] Start: 06-20-2023 Social Influencers o f Health Screening Social Influencers of Health Screening [facility] Start: 05-08-2023 End: 08-07-2023 CBC W Auto Differential panel - Blood CBC + DIFF Lab Routine Annual physical exam Expected: 05/08/2023, Expires: 08/07/2023 [facility] Work Phone: Comment on above: Expected: 05/08/2023 , Expires: 08/07/2023 Start: 05-08-2023 End: 08-07-2023 Comprehensive metabolic 2000 panel - Serum or Plasma COMP METABOLIC PANEL Lab Routine Annual physical exam Expected: 05/08/2023, Expires: 08/07/2023 [facility] Work Phone: Comment on above: Expected: 05/08/2023 , Expires: 08/07/2023 Start: 05-08-2023 End: 08-07-2023 Lipid 1996 panel - Serum or Plasma LIPID PANEL BASIC Lab Routine Screening for hyperlipidemia Expected: 05/08/2023, Expires: 08/07/2023 [facility] Work Phone: Comment on above: Expected: 05/08/2023 , Expires: 08/07/2023 Start: 02-12-2023 Behavioral Health Screening Behavioral Health Screening [facility] Start: 01-29-2023 [facility] Start: 10-13-2022 COVID-19 Vaccine ( season) COVID-19 Vaccine ( season) [facility] Start: 2022 Screening for malign ant neoplasm of colon [facility] Start: 10-13-2021 Influenza vaccination INFLUENZA (#1) [facility] Start: 07-30-2021 Adult depression screening assessment DEPRESSION SCREENING [facility] Start: 07-30-2021 HIV SCREENING HIV SCREENING [facility] Comment on above: Postponed from 03/12 (Declined at this time) Start: 02-12-2021 DEPRESSION ASSESSMENT DEPRESSION ASS ESSMENT [facility] Start: 10-01-2020 DTaP,Tdap,and Td Vaccines (3 - Td or Tdap) DTaP,Tdap,and Td Vaccines (3 - Td or Tdap) [facility] Start: 10-01-2020 Urine microalbumin profile DTAP,TDAP,TD (2 - Td or Tdap) [facility] Start: 05-23-2003 IPV Vaccines (2 of 3 - Adult catch-up series) IPV Vaccines (2 of 3 - Adult catch-up series) [facility] Start: 1995 Anxiety Screening Anxiety Screening [facility] Start: 1995 Depression Screening Depression Scre ening [facility] Start: 1995 HIV SCREENING HIV SCREENING [facility] Start: 1982 COVID-19 VACCINE (#1) COVID-19 VACCI NE (#1) [facility] Start: 1977 COVID-19 VACCINE (#1) COVID-19 VACCI NE (#1) [facility] Patient Education Finger Tip Amp utation Open Tx [facility] Work Phone: Patient referral [facility] Work Phone: End: 05-07-2024 Screening colonoscopy COLONOSCOPY SCREENING Endoscopy Routine Screening for colon cancer 1 Occurrences starting 05/08/2023 until 05/07/2024 [facility] Work Phone: Comment on above: 1 Occurrences starti ng 05/08/2023 until 05/07/2024 End: 06-06-2024 XR Elbow - left AP and Lateral XR ELBOW GENERAL 2V AP/LAT LEFT Radiology Routine Left elbow pain Chronic left shoulder pain 1 Occurrences starting 05/08/2023 until 06/06/2024 [facility] Work Phone: Comment on above: 1 Occurrences starti ng 05/08/2023 until 06/06/2024 End: 06-06-2024 XR Shoulder - left 3 Views XR SHOULDER GENERAL 3V OR MORE AP/TRUE AP/OTHER LEFT Radiology Routine Chronic left shoulder pain 1 Occurrences starting 05/08/2023 until 06/06/2024 [facility] Work Phone: Comment on above: 1 Occurrences starti ng 05/08/2023 until 06/06/2024 [facility] Immunizations Immunization Date Immunization Notes Care Provider Marycarmen esposito 11-27-2021 influenza virus vaccine, unspecified formulation Lucy Rinaldi APRN.MINER HELPER Work Phone: [facility] 11-25-2011 influenza virus vaccine, live, attenuated, for intranasal use Grzegorz Manny ASSOCIATE PROFESSOR OF KINESIOLOGY.MINER HELPER Work Phone: [facility] Work Phone: 11-25-2011 influenza virus vaccine, unspecified formulation Winston Bernal [facility] 03-31-2011 anthrax vaccine Grzegorz Jovany matt ASSOCIATE PROFESSOR OF KINESIOLOGY.MINER HELPER Work Phone: [facility] Work Phone: 03-19-2011 hepatitis B vaccine, adult dosage Grzegorz Manny ASSOCIATE PROFESSOR OF KINESIOLOGY.MINER HELPER Work Phone: [facility] Work Phone: 10-24-2010 anthrax vaccine Grzegorz gutierrez ASSOCIATE PROFESSOR OF KINESIOLOGY.MINER HELPER Work Phone: [facility] Work Phone: 10-24-2010 influenza virus vaccine, live, attenuated, for intranasal use Grzegorz Bryant ASSOCIATE PROFESSOR OF KINESIOLOGY.MINER HELPER Work Phone: [facility] Work Phone: 10-24-2010 vaccinia (smallpox) vaccine, diluted Grzegorz Manny ASSOCIATE PROFESSOR OF KINESIOLOGY.MINER HELPER Work Phone: [facility] Work Phone: 10-01-2010 hepatitis B vaccine, adult dosage Grzegorz Manny ASSOCIATE PROFESSOR OF KINESIOLOGY.MINER HELPER Work Phone: [facility] Work Phone: 10-01-2010 tetanus toxoid, redu lashell diphtheria toxoid, and acellular pertussis vaccine, adsorbed Grzegorz Manny ASSOCIATE PROFESSOR OF KINESIOLOGY.MINER HELPER Work Phone: [facility] Work Phone: 10-01-2010 typhoid vaccine, unspecified formulation Grzegorz Manny ASSOCIATE PROFESSOR OF KINESIOLOGY.MINER HELPER Work Phone: [facility] Work Phone: 07-20-2010 anthrax vaccine Grzegorz Jovany matt ASSOCIATE PROFESSOR OF KINESIOLOGY.MINER HELPER Work Phone: [facility] Work Phone: 07-20-2010 hepatitis B vaccine, adult dosage Grzegorz Bryant ASSOCIATE PROFESSOR OF KINESIOLOGY.MINER HELPER Work Phone: [facility] Work Phone: 12-29-2009 influenza virus vaccine, live, attenuated, for intranasal use Grzegorz Bryant ASSOCIATE PROFESSOR OF KINESIOLOGY.MINER HELPER Work Phone: [facility] Work Phone: 03-20-2009 novel [id number], all formulations Grzegorz Bryant ASSOCIATE PROFESSOR OF KINESIOLOGY.MINER HELPER Work Phone: [facility] Work Phone: 01-16-2009 influenza virus vaccine, live, attenuated, for intranasal use Grzegorz Bryant APRN.MINER HELPER Work Phone: [facility] Work Phone: 12-15-2007 influenza virus vaccine, unspecified formulation Grzegorz Bryant ASSOCIATE PROFESSOR OF KINESIOLOGY.MINER HELPER Work Phone: [facility] Work Phone: 01-16-2007 influenza virus vaccine, live, attenuated, for intranasal use Grzegorz Bryant APRN.MINER HELPER Work Phone: [facility] Work Phone: 11-27-2005 influenza virus vaccine, live, attenuated, for intranasal use Grzegorz Bryant ASSOCIATE PROFESSOR OF KINESIOLOGY.MINER HELPER Work Phone: [facility] Work Phone: 01-17-2005 hepatitis A vaccine, unspecified formulation Grzeogrz Bryant ASSOCIATE PROFESSOR OF KINESIOLOGY.MINER HELPER Work Phone: [facility] Work Phone: 01-17-2005 influenza virus vaccine, unspecified formulation Grzegorz Bryant ASSOCIATE PROFESSOR OF KINESIOLOGY.MINER HELPER Work Phone: [facility] Work Phone: 05-30-2003 tetanus and diphther ia toxoids, adsorbed, preservative free, for adult use (2 Lf of tetanus toxoid and 2 Lf of diphtheria toxoid) Grzegorz Bryant ASSOCIATE PROFESSOR OF KINESIOLOGY.MINER HELPER Work Phone: [facility] Work Phone: 05-30-2003 typhoid vaccine, unspecified formulation Grzegorz Bryant ASSOCIATE PROFESSOR OF KINESIOLOGY.MINER HELPER Work Phone: [facility] Work Phone: 04-25-2003 hepatitis A vaccine, unspecified formulation Grzegorz Bryant ASSOCIATE PROFESSOR OF KINESIOLOGY.MINER HELPER Work Phone: [facility] Work Phone: 04-25-2003 influenza virus vaccine, whole virus Grzegorz Bryant ASSOCIATE PROFESSOR OF KINESIOLOGY.MINER HELPER Work Phone: [facility] Work Phone: 04-25-2003 poliovirus vaccine, inactivated Grzegorz Bryant ASSOCIATE PROFESSOR OF KINESIOLOGY.MINER HELPER Work Phone: [facility] Work Phone: 04-25-2003 poliovirus vaccine, unspecified formulation [facility] 01-18-2002 influenza virus vaccine, whole virus Grzegorz Bryant ASSOCIATE PROFESSOR OF KINESIOLOGY.MINER HELPER Work Phone: [facility] Work Phone: 08-04-1986 tuberculin skin test ; purified protein derivative solution, intradermal Pooja Denson RN [facility] 05-25-1983 varicella virus vaccine Corbin Bryant ASSOCIATE PROFESSOR OF KINESIOLOGY.MINER HELPER Work Phone: [facility] Work Phone: Payers Date Payer Category Payer Self-pay [id number] 2013 [facility] (not [facility] care or Medicaid) [facility] [id number] 2013 Unknown [facility] [id number] 2013-Present [phone] [address] [place] [address] Indemnity [id number] 2013 Unknown IAN MARSH [id number] 2013-Present [phone] [address] [place] [address] Indemnity [id number] 2013 [employer] ( and others) [id number] Unknown [id number] Social History Date Type Detail Facility Start: 06-02-2015 End: 05-08-2023 Tobacco smoking status NHIS Ex-smoker [facility] History of tobacco use Cigar Smoker [facility] Start: 06-02-2015 End: 05-08-2023 Tobacco use and exposure Former smokeless tobacco user [facility] End: 06-01-2013 History of tobacco use User of smokeless tobacco [facility] Start: 07-14-2021 End: 04-10-2024 Alcohol intake Current drinker of alcohol (finding) [facility] Start: 07-14-2021 End: 05-08-2023 Alcohol intake [facility] Start: 07-30-2020 End: 08-08-2021 History SDOH Alcohol Std Drinks 2 [facility] Start: 07-30-2020 End: 08-08-2021 History SDOH Alcohol Binge 3 [facility] Start: 07-12-2012 History SDOH Alcohol Comment ocas - weekends, right after dinner [facility] Start: 07-30-2020 End: 08-08-2021 History SDOH Food Worry 1 [facility] Start: 07-30-2020 Education 17 [facility] Start: 1975 Sex Assigned At Not on file C [facility] Start: 07-04-2021 End: 07-14-2021 Exposure to SARS-CoV-2 (event) Not sure [facility] Work Phone: Start: 08-08-2021 History SDOH Physica l Activity DPW 5 [facility] History of tobacco use Current smoker [facility] Start: 01-29-2023 Tobacco smoking stat us NHIS Unknown if ever smoked [facility] Start: 1975 Sex Assigned At Male W [facility] Start: 08-08-2021 End: 05-08-2023 Social connection and isolation panel [facility] Do you belong to any clubs or organizations such as episcopalian groups, unions, fraternal or athletic groups, or school groups? Yes [facility] Are you now , , , , never or living with a partner? [facility] How often to you hav e a drink containing alcohol? Monthly or less [facility] How many standard dr inks containing alcohol do you have on a typical day? 1 or 2 [facility] How often do you hav e 6 or more drinks on 1 occasion? Less than monthly [facility] How hard is it for y ou to pay for the very basics like food, housing, medical care, and heating Not hard at all [facility] Do you feel stress - tense, restless, nervous, or anxious, or unable to sleep at night because your mind is troubled all the time - these days [OSQ] To some extent [facility] (I/We) worried dara er (my/our) food would run out before (I/we) got money to buy more. Never true [facility] In the past 12 month s, was there a time when you were not able to pay the mortgage or rent on time? No [facility] How often to you hav e a drink containing alcohol? 2-4 times a month [facility] How hard is it for y ou to pay for the very basics like food, housing, medical care, and heating Not very hard [facility] Do you feel stress - tense, restless, nervous, or anxious, or unable to sleep at night because your mind is troubled all the time - these days [OSQ] Only a little [facility] Clinical Notes 07-14-2021 to 04-10-2024 Nate Caro APRN.MINER HELPER - 04/10/2024 4:53 PM ESTTelephone Encounter - Pooja Denson RN - 02/10/2024 3:16 PM ESTTelephone Encounter - Pooja Denson RN - 02/10/2024 3:16 PM EST Note Date & Type Note Facility 04-10-2024 Note HNO ID: [id number] Author: NATE CARO APRN.MINER HELPER Service: ? Author Type: Nurse Practitioner Type: Progress Notes Filed: 04/10/2024 17:05 Note Text: Subjective HPI Nontoxic-appearing 49-year-old male presents urgent care chief complaint cough and chest congestion sinus pressure. Duration of symptoms 8 days. Associated symptoms listed above. Most prominent symptom today is sinus pressure. States sinus pressure is worse in the last 24 hours. Patient had increased maxillary pressure and feels pressure on his teeth as well. Denies OTC medication use recently. Did take some ibuprofen this morning this did help some. History of sinus infections is similar. Denies fevers. Past medical history prescription medications allergies reviewed. .Patient presents with: Cough: Chest and sinus congestion x1 week PAST MEDICAL HISTORY Diagnosis Date GERD (gastroesophageal reflux disease) PAST SURGICAL HISTORY Procedure Laterality Date ESOPHAGOGASTRODUODENOSCOPY TRANSORAL DIAGNOSTIC 07/25/2012 EGD LEFT HEART CATH,PERCUTANEOUS 07/20/2020 ALLERGIES Patient has no known allergies. MEDICATIONS omeprazole (PRILOSEC) 20 mg capsule Take 1 capsule by mouth daily before breakfast. 1/2 hr before meal. FAMILY HISTORY Problem Relation Age of Onset Breast Cancer Mother Lipids Father other (CABG) Father Cancer Maternal Grandmother other (OR) Paternal Grandfather Stroke Paternal Grandfather Social History Tobacco Use Smoking status: Former Types: Cigars Smokeless tobacco: Former Quit date: 06/01/2013 Vaping Use Vaping status: Never Used Substance Use Topics Alcohol use: Yes Alcohol/week: 4.0 standard drinks of alcohol Types: 4 Glasses of Wine (5oz) per week Comment: ocas - weekends, right after dinner Drug use: No BP 131/79 Pulse (!) 55 Temp 36.3 ?C (97.3 ?F) Resp 18 Wt 71.9 kg (158 lb 8.2 oz) SpO2 100% BMI 27.57 kg/m? Review of Systems Constitutional: Negative for chills, fever and malaise/fatigue. HENT: Positive for congestion and sinus pain. Negative for ear discharge, ear pain and sore throat. Eyes: Negative for blurred vision, pain, discharge and redness. Respiratory: Positive for cough. Negative for hemoptysis, sputum production, shortness of breath, wheezing and stridor. Cardiovascular: Negative for chest pain. Gastrointestinal: Negative for abdominal pain, diarrhea, nausea and vomiting. Musculoskeletal: Negative for myalgias. Skin: Negative for itching and rash. Neurological: Negative for dizziness and headaches. Objective Physical Exam Constitutional: General: He is not in acute distress. Appearance: He is not diaphoretic. HENT: Head: Normocephalic. Jaw: No trismus, tenderness, swelling or pain on movement. Right Ear: Tympanic membrane, ear canal and external ear normal. Left Ear: Tympanic membrane, ear canal and external ear normal. Nose: Congestion present. Right Sinus: Maxillary sinus tenderness present. Left Sinus: Maxillary sinus tenderness present. Mouth/Throat: Mouth: Mucous membranes are moist. Pharynx: Oropharynx is clear. Uvula midline. No pharyngeal swelling, oropharyngeal exudate, posterior oropharyngeal erythema or uvula swelling. Eyes: Conjunctiva/sclera: Conjunctivae normal. Pupils: Pupils are equal, round, and reactive to light. Cardiovascular: Rate and Rhythm: Normal rate and regular rhythm. Heart sounds: Normal heart sounds. Pulmonary: Effort: Pulmonary effort is normal. No tachypnea, accessory muscle usage or respiratory distress. Breath sounds: Normal breath sounds. No stridor. No wheezing, rhonchi or rales. Abdominal: General: There is no distension. Palpations: Abdomen is soft. Tenderness: There is no abdominal tenderness. There is no guarding or rebound. Musculoskeletal: Cervical back: Normal range of motion and neck supple. No edema, erythema, rigidity or tenderness. No pain with movement. Normal range of motion. Lymphadenopathy: Cervical: No cervical adenopathy. Skin: General: Skin is warm and dry. Neurological: Mental Status: He is alert and oriented to person, place, and time. ASSESSMENT/PLAN: 1. Bacterial sinusitis - ICD9: 473.9, 041.9, ICD10: J32.9, B96.89 Diagnosed with bacterial sinusitis. Placed on doxycycline. Will use short-term Afrin as discussed. Patient was educated on supportive therapies. Patient will follow up with primary care provider as needed. Patient was instructed to immediately proceed to emergency room for any new, worsening, or symptoms lasting longer than anticipated. The patient's clinical presentation is otherwise unremarkable at this time. Based on exam and clinical finding, the patient is stable for discharge. Plan of care was discussed with patient. Patient verbalizes understanding and agrees to plan of care. This note was generated using Ecoc[employer] software. It may contain errors in wording, punctuation, or spelling. Nate Erickson (more content not included)... [facility] 04-10-2024 History of Presen t illness Narrative Subjective HPI Nontoxic-appearing 49-year-old male presents urgent care chief complaint cough and chest congestion sinus pressure. Duration of symptoms 8 days. Associated symptoms listed above. Most prominent symptom today is sinus pressure. States sinus pressure is worse in the last 24 hours. Patient had increased maxillary pressure and feels pressure on his teeth as well. Denies OTC medication use recently. Did take some ibuprofen this morning this did help some. History of sinus infections is similar. Denies fevers. Past medical history prescription medications allergies reviewed. .Patient presents with: Cough: Chest and sinus congestion x1 week PAST MEDICAL HISTORY Diagnosis Date GERD (gastroesophageal reflux disease) PAST SURGICAL HISTORY Procedure Laterality Date ESOPHAGOGASTRODUODENOSCOPY TRANSORAL DIAGNOSTIC 07/25/2012 EGD LEFT HEART CATH,PERCUTANEOUS 07/20/2020 ALLERGIES Patient has no known allergies. MEDICATIONS omeprazole (PRILOSEC) 20 mg capsule Take 1 capsule by mouth daily before breakfast. 1/2 hr before meal. FAMILY HISTORY Problem Relation Age of Onset Breast Cancer Mother Lipids Father other (CABG) Father Cancer Maternal Grandmother other (OR) Paternal Grandfather Stroke Paternal Grandfather Social History Tobacco Use Smoking status: Former Types: Cigars Smokeless tobacco: Former Quit date: 06/01/2013 Vaping Use Vaping status: Never Used Substance Use Topics Alcohol use: Yes Alcohol/week: 4.0 standard drinks of alcohol Types: 4 Glasses of Wine (5oz) per week Comment: ocas - weekends, right after dinner Drug use: No BP 131/79 Pulse (!) 55 Temp 36.3 C (97.3 F) Resp 18 Wt 71.9 kg (158 lb 8.2 oz) SpO2 100% BMI 27.57 kg/m Review of Systems Constitutional: Negative for chills, fever and malaise/fatigue. HENT: Positive for congestion and sinus pain. Negative for ear discharge, ear pain and sore throat. Eyes: Negative for blurred vision, pain, discharge and redness. Respiratory: Positive for cough. Negative for hemoptysis, sputum production, shortness of breath, wheezing and stridor. Cardiovascular: Negative for chest pain. Gastrointestinal: Negative for abdominal pain, diarrhea, nausea and vomiting. Musculoskeletal: Negative for myalgias. Skin: Negative for itching and rash. Neurological: Negative for dizziness and headaches. Objective Physical Exam Constitutional: General: He is not in acute distress. Appearance: He is not diaphoretic. HENT: Head: Normocephalic. Jaw: No trismus, tenderness, swelling or pain on movement. Right Ear: Tympanic membrane, ear canal and external ear normal. Left Ear: Tympanic membrane, ear canal and external ear normal. Nose: Congestion present. Right Sinus: Maxillary sinus tenderness present. Left Sinus: Maxillary sinus tenderness present. Mouth/Throat: Mouth: Mucous membranes are moist. Pharynx: Oropharynx is clear. Uvula midline. No pharyngeal swelling, oropharyngeal exudate, posterior oropharyngeal erythema or uvula swelling. Eyes: Conjunctiva/sclera: Conjunctivae normal. Pupils: Pupils are equal, round, and reactive to light. Cardiovascular: Rate and Rhythm: Normal rate and regular rhythm. Heart sounds: Normal heart sounds. Pulmonary: Effort: Pulmonary effort is normal. No tachypnea, accessory muscle usage or respiratory distress. Breath sounds: Normal breath sounds. No stridor. No wheezing, rhonchi or rales. Abdominal: General: There is no distension. Palpations: Abdomen is soft. Tenderness: There is no abdominal tenderness. There is no guarding or rebound. Musculoskeletal: Cervical back: Normal range of motion and neck supple. No edema, erythema, rigidity or tenderness. No pain with movement. Normal range of motion. Lymphadenopathy: Cervical: No cervical adenopathy. Skin: General: Skin is warm and dry. Neurological: Mental Status: He is alert and oriented to person, place, and time. ASSESSMENT/PLAN: 1. Bacterial sinusitis - ICD9: 473.9, 041.9, ICD10: J32.9, B96.89 Diagnosed with bacterial sinusitis. Placed on doxycycline. Will use short-term Afrin as discussed. Patient was educated on supportive therapies. Patient will follow up with primary care provider as needed. Patient was instructed to immediately proceed to emergency room for any new, worsening, or symptoms lasting longer than anticipated. The patient's clinical presentation is otherwise unremarkable at this time. Based on exam and clinical finding, the patient is stable for discharge. Plan of care was discussed with patient. Patient verbalizes understanding and agrees to plan of care. This note was generated using Ecoc[employer] software. It may contain errors in wording, punctuation, or spelling. Nate Caro APRN.MAGEN documented in this encounter [facility] 02-10-2024 Telephone encounter Note Patient calling with request for health information: patient requesting health information about Rabies Patient denies any new or worsening symptoms of which a provider is not aware: Yes. Patient is not experiencing symptoms and has not been bit by his dog. His dog has been salivating a lot and acting weird for a couple of days. No known bite to the dog. The dogs has not been tested for rabies. Patient would like to know protocol for himself if exposed to rabies. He put the dog in a cage. Triage not done since patient was not bit by the dog and patient does not have symptoms. Referred patient to [facility] to learn about rabies in humans Advised patient to call vet today and have dog seen and tested for rabies. Call back if dog has rabies or if you develop symptoms. Follow up with you PCP office tomorrow when open [facility] 02-10-2024 Miscellaneous Notes Patient calling with request for health information: patient requesting health information about Rabies Patient denies any new or worsening symptoms of which a provider is not aware: Yes. Patient is not experiencing symptoms and has not been bit by his dog. His dog has been salivating a lot and acting weird for a couple of days. No known bite to the dog. The dogs has not been tested for rabies. Patient would like to know protocol for himself if exposed to rabies. He put the dog in a cage. Triage not done since patient was not bit by the dog and patient does not have symptoms. Referred patient to [facility] to learn about rabies in humans Advised patient to call vet today and have dog seen and tested for rabies. Call back if dog has rabies or if you develop symptoms. Follow up with you PCP office tomorrow when open documented in this encounter [facility] 11-15-2023 Note HNO ID: [id number] Author: SEAN MOORE PT Service: ? Author Type: Physical Therapist Type: Progress Notes Filed: 11/15/2023 17:16 Note Text: 11/15/2023 [facility] PHYSICAL THERAPY DISCONTINUANCE OF CARE Plan of Care Period: Start of Care Date: 05/14/23 Last Visit Date: 08/21/2023 Therapy Program: The following is a summary of the interventions provided for this episode of care; Therapeutic exercise, Manual therapy, Self-correction management, and Patient/Family/Caregiver Education Assessment: The following is the goal status: Goals updated 07/30/2023 Goals for Episode of Care: created on through [place] in home exercise program. - MET Perform pulling, lifting, and running without pain. - Not met Increased strength of L supraspinatus and subscapularis to 5/5 for decreased pain and improved shoulder mechanics and positioning with exercise and ADL's - Progressing Improve flexibility of Pectorals for improved shoulder joint mechanics and decreased pain - Not met Pt will improve posterior capsule flexibility to 90 degrees of IR with arm abducted to 90 for improved shoulder joint mechanics - Not assessed Improve postural awareness. - Slight improvement Based on the most recent progress report, patient was progressing as expected toward functional goals based on home exercise program compliance, pain levels, documented subjective information on progress, and documented objective information regarding independence in exercise, overall function, and symptom management. Reason for Discontinuation of Care: Patient has not returned to therapy or scheduled additional follow-up appointments. Sean Moore PT [facility] 08-21-2023 Note HNO ID: [id number] Author: SEAN MOORE PT Service: ? Author Type: Physical Therapist Type: Progress Notes Filed: 08/21/2023 09:22 Note Text: Episode Visit Count: 6 Therapist That Will Accept/Oversee The Plan Of Care: Sean Moore PT Start of Care Date: 05/14/23 Onset Date: 02/12/11 Patient Identified by Name and Date of : Yes REHABILITATION AND SPORTS THERAPY PHYSICAL THERAPY TREATMENT NOTE ASSESSMENT: Missy Boss tolerated the session with expected muscle soreness. He demonstrated some muscle soreness that refers to the L shoulder post DDN to the infraspinatus muscle belly. The patient will continue to benefit from ongoing skilled physical therapy to progress toward set goals. PLAN FOR NEXT VISIT: DDN PRN.PN SUBJECTIVE: Swimming still hurts. The exercises are getting less painful and easier. Pain: Pain Pain Location: Shoulder - Left OBJECTIVE MEASURES WITH LEVEL OF FUNCTION: Tender at L infraspinatus that causes pain to refer to the L shoulder TREATMENT: Therapeutic Exercise: 1: Shoulder IR 1 plate 3 rounds 3 x 10 each arm 2: Shoulder ER 1 plate 1 round 3 x 10 each arm 3: Shoulder scaption 10# 3 x 10 each arm 4: Discussed use of foam roller laying over the pt's spine and lettign the arm fall towards the table to stretch the pectoral musculature and holding 3-5 minutes Skilled Intervention: Patient was educated in proper exercise technique and purpose for exercises. Provided written instruction for home exercise program to facilitate proper performance and compliance. Correct performance of therapeutic exercises was facilitated with verbal and visual cuing. Manual Therapy: 2: STM over L infraspinatus and R upper trap 3: DDN (See note for details) Skilled Intervention: Manual skills to improve joint mobility, ROM, and decrease pain. Utilized anatomy knowledge of the therapist, and assessment of patient's response to intervention. Billing Therapeutic Exercise Treatment Minutes: 27 Manual TherapyTreatment Minutes: 20 Skilled Treatment Time Minutes (timed and untimed codes): 47 Total Session Time (minutes): 47 Session Start Time : 830 Session Stop Time : 917 Sean Moore PT [facility] 08-21-2023 History of Presen t illness Narrative Episode Visit Count: 6 Therapist That Will Accept/Oversee The Plan Of Care: Sean Moore PT Start of Care Date: 05/14/23 Onset Date: 02/12/11 Patient Identified by Name and Date of : Yes REHABILITATION AND SPORTS THERAPY PHYSICAL THERAPY TREATMENT NOTE ASSESSMENT: Missy Thaochtel tolerated the session with expected muscle soreness. He demonstrated some muscle soreness that refers to the L shoulder post DDN to the infraspinatus muscle belly. The patient will continue to benefit from ongoing skilled physical therapy to progress toward set goals. PLAN FOR NEXT VISIT: DDN PRN.PN SUBJECTIVE: Swimming still hurts. The exercises are getting less painful and easier. Pain: Pain Pain Location: Shoulder - Left OBJECTIVE MEASURES WITH LEVEL OF FUNCTION: Tender at L infraspinatus that causes pain to refer to the L shoulder TREATMENT: Therapeutic Exercise: 1: Shoulder IR 1 plate 3 rounds 3 x 10 each arm 2: Shoulder ER 1 plate 1 round 3 x 10 each arm 3: Shoulder scaption 10# 3 x 10 each arm 4: Discussed use of foam roller laying over the pt's spine and lettign the arm fall towards the table to stretch the pectoral musculature and holding 3-5 minutes Skilled Intervention: Patient was educated in proper exercise technique and purpose for exercises. Provided written instruction for home exercise program to facilitate proper performance and compliance. Correct performance of therapeutic exercises was facilitated with verbal and visual cuing. Manual Therapy: 2: STM over L infraspinatus and R upper trap 3: DDN (See note for details) Skilled Intervention: Manual skills to improve joint mobility, ROM, and decrease pain. Utilized anatomy knowledge of the therapist, and assessment of patient's response to intervention. Billing Therapeutic Exercise Treatment Minutes: 27 Manual TherapyTreatment Minutes: 20 Skilled Treatment Time Minutes (timed and untimed codes): 47 Total Session Time (minutes): 47 Session Start Time : 830 Session Stop Time : 917 Sean Moore PT documented in this encounter [facility] 07-30-2023 Note HNO ID: [id number] Author: SEAN MOORE PT Service: ? Author Type: Physical Therapist Type: Progress Notes Filed: 07/30/2023 13:33 Note Text: Episode Visit Count: 5 Therapist That Will Accept/Oversee The Plan Of Care: Sean Moore PT Start of Care Date: 05/14/23 Onset Date: 02/12/11 Patient Identified by Name and Date of : Yes REHABILITATION AND SPORTS THERAPY PHYSICAL THERAPY PROGRESS REPORT PLAN OF CARE UPDATE: Assessment: Missy Boss demonstrates difficulty with decreased flexibility, decreased cervical ROM, decreased posture, and decreased strength and improvements in overall strength and ROM compared to previous visits. He has progressed toward goals. Limitations cause issues with sleeping, lifting, pulling, recreational activities . Current prognosis is Good due to: current objective clinical presentation, good overall health status, good support system/ coping skills . He will benefit from continued skilled therapy services to meet the updated goals for this plan of care as noted below. Goals updated 07/30/2023 Goals for Episode of Care: created on through [place] in home exercise program. - MET Perform pulling, lifting, and running without pain. - Not met Increased strength of L supraspinatus and subscapularis to 5/5 for decreased pain and improved shoulder mechanics and positioning with exercise and ADL's - Progressing Improve flexibility of Pectorals for improved shoulder joint mechanics and decreased pain - Not met Pt will improve posterior capsule flexibility to 90 degrees of IR with arm abducted to 90 for improved shoulder joint mechanics - Not assessed Improve postural awareness. - Slight improvement Patient Goals: Reduce the pain Planned Interventions, Frequency, and Duration: 1x/week, 4 weeks Total Number of Visits Planned: 4 Patient to be seen for Therapeutic exercise (75306), Neuromuscular re-education (89743), Manual therapy (33479), Therapeutic activities (12484), Self-correction management (73961), Patient/Family/Caregiver Education PLAN FOR NEXT VISIT: DDN PRN. RTC strengthening SUBJECTIVE: The soreness is the same. The stretches are getting better. The forearm is still pretty sore. Still bothers him with physical work. The numbness is not as often. Patient Goals: Reduce the pain Functional Limitations: sleeping, lifting, pulling, recreational activities Prior Level of Function: Independent without limitations Intake Information: Prescription present Previous Treatment: Heat , Ice Pain: Pain Pain Level: 2 Pain Location: Shoulder - Left PROMIS Scales 07/30/2023 07/02/2023 Higher is Better Phys Func - Score 39 (moderate dysfunction) 39 (moderate dysfunction) Phys Func - Percentile 14 14 Self-Eff Symptom - Score 49 (Average) 41 (Average) Self-Eff Symptom - Percentile 46 18 T-scores: mean of general population = 50. 5 points is clinically meaningfully difference Percentiles provide an indication of how the patient's score ranks in relation to the general population. Higher percentile rankings indicate better function/quality of life. 50th percentile is the average of the general population and indicates half of respondents had a worse score. OBJECTIVE MEASURES WITH LEVEL OF FUNCTION: Posture / Alignment Posture: Forward head, Rounded shoulders, Slump Cervical Spine ROM Cervical Flexion AROM: Minimal limitation Cervical Extension AROM: Normal Cervical Side-Bend Right AROM: Minimal limitation Cervical Side-Bend Left AROM: Minimal limitation Cervical Rotation Right AROM: Normal Cervical Rotation Left AROM: Minimal limitation UE AROM R UE AROM: WNL L UE AROM: WNL L Shoulder Flex: 140 Degrees (stopping due to pain) UE Flexibility Flexibility: Pectoral Muscles R Pectorals Comments: Tight L Pectorals Comments: Tight UE and Cervical Strength R Shoulder Flexion: 5/5 R Shoulder Abduction (C5): 5/5 R Shoulder Internal Rotation: 4+/5 R Shoulder External Rotation: 5/5 L Shoulder Flexion: 5/5 L Shoulder Abduction (C5): 5/5 L Shoulder Internal Rotation: 4/5 L Shoulder External Rotation: 5/5 (painful) TP at L infraspinatus muscle belly causes familiar pain into the L shoulder TREATMENT: Manual Therapy: 1: All objective measres taken this session 2: DDN (See note for details) 3: STM over Upper/mid traps and infraspinatus Dry needling to following Trigger points: Upper traps, infraspinatus, and supraspinatus Needle length: 50mm 2.0 in and 60mm 2.5 in. [place] used 6, needles removed 6. Dry needling technique used: Pistoning, Fanning, and Deep needling. Patient education on purpose, precautions, safety, risks, and other treatment options regarding dry needling. Verbal consent received. Skilled Intervention: Manual skills to improve joint mobility, ROM, and decrease pain. Utilized anatomy knowledge of the therapist, and assessment of patient's response to intervention. Arnoldo Messer (more content not included)... [facility] 07-30-2023 History of Presen t illness Narrative Images from the original note were not included. Episode Visit Count: 5 Therapist That Will Accept/Oversee The Plan Of Care: Sean Moore PT Start of Care Date: 05/14/23 Onset Date: 02/12/11 Patient Identified by Name and Date of : Yes REHABILITATION AND SPORTS THERAPY PHYSICAL THERAPY PROGRESS REPORT PLAN OF CARE UPDATE: Assessment: Missy Boss demonstrates difficulty with decreased flexibility, decreased cervical ROM, decreased posture, and decreased strength and improvements in overall strength and ROM compared to previous visits. He has progressed toward goals. Limitations cause issues with sleeping, lifting, pulling, recreational activities . Current prognosis is Good due to: current objective clinical presentation, good overall health status, good support system/ coping skills . He will benefit from continued skilled therapy services to meet the updated goals for this plan of care as noted below. Goals updated 07/30/2023 Goals for Episode of Care: created on through [place] in home exercise program. - MET Perform pulling, lifting, and running without pain. - Not met Increased strength of L supraspinatus and subscapularis to 5/5 for decreased pain and improved shoulder mechanics and positioning with exercise and ADL's - Progressing Improve flexibility of Pectorals for improved shoulder joint mechanics and decreased pain - Not met Pt will improve posterior capsule flexibility to 90 degrees of IR with arm abducted to 90 for improved shoulder joint mechanics - Not assessed Improve postural awareness. - Slight improvement Patient Goals: Reduce the pain Planned Interventions, Frequency, and Duration: 1x/week, 4 weeks Total Number of Visits Planned: 4 Patient to be seen for Therapeutic exercise (89372), Neuromuscular re-education (08772), Manual therapy (92025), Therapeutic activities (40486), Self-correction management (12670), Patient/Family/Caregiver Education PLAN FOR NEXT VISIT: DDN PRN. RTC strengthening SUBJECTIVE: The soreness is the same. The stretches are getting better. The forearm is still pretty sore. Still bothers him with physical work. The numbness is not as often. Patient Goals: Reduce the pain Functional Limitations: sleeping, lifting, pulling, recreational activities Prior Level of Function: Independent without limitations Intake Information: Prescription present Previous Treatment: Heat , Ice Pain: Pain Pain Level: 2 Pain Location: Shoulder - Left PROMIS Scales 07/30/2023 07/02/2023 Higher is Better Phys Func - Score 39 (moderate dysfunction) 39 (moderate dysfunction) Phys Func - Percentile 14 14 Self-Eff Symptom - Score 49 (Average) 41 (Average) Self-Eff Symptom - Percentile 46 18 T-scores: mean of general population = 50. 5 points is clinically meaningfully difference Percentiles provide an indication of how the patient's score ranks in relation to the general population. Higher percentile rankings indicate better function/quality of life. 50th percentile is the average of the general population and indicates half of respondents had a worse score. OBJECTIVE MEASURES WITH LEVEL OF FUNCTION: Posture / Alignment Posture: Forward head, Rounded shoulders, Slump Cervical Spine ROM Cervical Flexion AROM: Minimal limitation Cervical Extension AROM: Normal Cervical Side-Bend Right AROM: Minimal limitation Cervical Side-Bend Left AROM: Minimal limitation Cervical Rotation Right AROM: Normal Cervical Rotation Left AROM: Minimal limitation UE AROM R UE AROM: WNL L UE AROM: WNL L Shoulder Flex: 140 Degrees (stopping due to pain) UE Flexibility Flexibility: Pectoral Muscles R Pectorals Comments: Tight L Pectorals Comments: Tight UE and Cervical Strength R Shoulder Flexion: 5/5 R Shoulder Abduction (C5): 5/5 R Shoulder Internal Rotation: 4+/5 R Shoulder External Rotation: 5/5 L Shoulder Flexion: 5/5 L Shoulder Abduction (C5): 5/5 L Shoulder Internal Rotation: 4/5 L Shoulder External Rotation: 5/5 (painful) TP at L infraspinatus muscle belly causes familiar pain into the L shoulder TREATMENT: Manual Therapy: 1: All objective measres taken this session 2: DDN (See note for details) 3: STM over Upper/mid traps and infraspinatus Dry needling to following Trigger points: Upper traps, infraspinatus, and supraspinatus Needle length: 50mm 2.0 in and 60mm 2.5 in. [place] used 6, needles removed 6. Dry needling technique used: Pistoning, Fanning, and Deep needling. Patient education on purpose, precautions, safety, risks, and other treatment options regarding dry needling. Verbal consent received. Skilled Intervention: Manual skills to improve joint mobility, ROM, and decrease pain. Utilized anatomy knowledge of the therapist, and assessment of patient's response to intervention. Billing Manual TherapyTreatment Minutes: 45 Skilled Treatment Time Minutes (timed and untimed codes): 45 Total Session Time (minutes): 45 Session Start Time : 1045 Session Stop Time : 1130 Sean Moore PT documented in this encounter [facility] 07-10-2023 Note HNO ID: [id number] Author: SEAN MOORE PT Service: ? Author Type: Physical Therapist Type: Progress Notes Filed: 07/10/2023 12:19 Note Text: Episode Visit Count: 4 Therapist That Will Accept/Oversee The Plan Of Care: Sean Moore PT Start of Care Date: 05/14/23 Onset Date: 02/12/11 Patient Identified by Name and Date of : Yes REHABILITATION AND SPORTS THERAPY PHYSICAL THERAPY TREATMENT NOTE ASSESSMENT: Missy Bernal Gera tolerated the session with expected muscle soreness and no issues. He demonstrated some positive testing for possible TOS. The patient will continue to benefit from ongoing skilled physical therapy to progress toward set goals and for reassessment by supervising therapist. PLAN FOR NEXT VISIT: DDN to upper traps SUBJECTIVE: Doing alright with the exercises. Still working on them at home. Does get tingling and numbness when driving in both hands. Pain: Pain Pain Location: Shoulder - Left OBJECTIVE MEASURES WITH LEVEL OF FUNCTION: Tingling in L and R hand with depression of 1st rib. R 1st rib hypomobile. R and L upper traps and scalenes are tight Bilateral scap retraction causes N/T bilat thumbs TREATMENT: Therapeutic Exercise: 1: Shoulder ER cables 1 plate 3 x 10 each arm 2: Shoulder IR cable 1 plate 3 x 10 each arm 3: Reaching 1-4 with 2# on wrist to fatigue x 2 sets 4: standing pec stretch 2 x 30 sec each arm Skilled Intervention: Patient was educated in proper exercise technique and purpose for exercises. Provided written instruction for home exercise program to facilitate proper performance and compliance. Correct performance of therapeutic exercises was facilitated with verbal and visual cuing. Billing Therapeutic Exercise Treatment Minutes: 44 Skilled Treatment Time Minutes (timed and untimed codes): 44 Total Session Time (minutes): 44 Session Start Time : 1101 Session Stop Time : 1145 Sean Moore PT [facility] 07-10-2023 History of Presen t illness Narrative Episode Visit Count: 4 Therapist That Will Accept/Oversee The Plan Of Care: Sean Moore PT Start of Care Date: 05/14/23 Onset Date: 02/12/11 Patient Identified by Name and Date of : Yes REHABILITATION AND SPORTS THERAPY PHYSICAL THERAPY TREATMENT NOTE ASSESSMENT: Missy Gabe Boss tolerated the session with expected muscle soreness and no issues. He demonstrated some positive testing for possible TOS. The patient will continue to benefit from ongoing skilled physical therapy to progress toward set goals and for reassessment by supervising therapist. PLAN FOR NEXT VISIT: DDN to upper traps SUBJECTIVE: Doing alright with the exercises. Still working on them at home. Does get tingling and numbness when driving in both hands. Pain: Pain Pain Location: Shoulder - Left OBJECTIVE MEASURES WITH LEVEL OF FUNCTION: Tingling in L and R hand with depression of 1st rib. R 1st rib hypomobile. R and L upper traps and scalenes are tight Bilateral scap retraction causes N/T bilat thumbs TREATMENT: Therapeutic Exercise: 1: Shoulder ER cables 1 plate 3 x 10 each arm 2: Shoulder IR cable 1 plate 3 x 10 each arm 3: Reaching 1-4 with 2# on wrist to fatigue x 2 sets 4: standing pec stretch 2 x 30 sec each arm Skilled Intervention: Patient was educated in proper exercise technique and purpose for exercises. Provided written instruction for home exercise program to facilitate proper performance and compliance. Correct performance of therapeutic exercises was facilitated with verbal and visual cuing. Billing Therapeutic Exercise Treatment Minutes: 44 Skilled Treatment Time Minutes (timed and untimed codes): 44 Total Session Time (minutes): 44 Session Start Time : 1101 Session Stop Time : 1145 Sean Moore PT documented in this encounter [facility] 07-02-2023 Note HNO ID: [id number] Author: SEAN MOORE PT Service: ? Author Type: Physical Therapist Type: Progress Notes Filed: 07/02/2023 13:05 Note Text: Episode Visit Count: 3 Therapist That Will Accept/Oversee The Plan Of Care: Sean Moore PT Start of Care Date: 05/14/23 Onset Date: 02/12/11 Patient Identified by Name and Date of : Yes REHABILITATION AND SPORTS THERAPY PHYSICAL THERAPY TREATMENT NOTE ASSESSMENT: Missy Boss tolerated the session with expected muscle soreness. He demonstrated good tolerance to all MT performed this session. The patient will continue to benefit from ongoing skilled physical therapy to progress toward set goals. PLAN FOR NEXT VISIT: STM to forearm as tolerated SUBJECTIVE: The shoulder is sore. Exercises are going ok. They do not make him overly sore to where he cannot stand it. Pain: Pain Pain Level: 2 Pain Location: Shoulder - Left Post Treatment Pain Post Treatment Pain Level: No Change Post Treatment Pain Location: Shoulder - Left OBJECTIVE MEASURES WITH LEVEL OF FUNCTION: Tender along L wrist extensor proximally TREATMENT: Therapeutic Exercise: 1: Shoulder ER cables 1 plate 3 x 10 each arm 2: Shoulder IR cable 1 plate 3 x 10 each arm 3: LUE bicep curl 5# 3 x 10 4: UBE x 4 min (1:1 time spent and HEP discussed) 5: Pec stretch arm low 2 x 30 sec 6: Sleeper stretch 2 x 30 sec Skilled Intervention: Patient was educated in proper exercise technique and purpose for exercises. Skilled judgment was used in selection of appropriate interventions. Provided written instruction for home exercise program to facilitate proper performance and compliance. Manual Therapy: 1: IASTM over wrist extensors and brachioradialis 2: Thumb gliding over bracioradialis firm pressure with pt sitting Skilled Intervention: Manual skills to improve joint mobility, ROM, and decrease pain. Utilized anatomy knowledge of the therapist, and assessment of patient's response to intervention. Billing Therapeutic Exercise Treatment Minutes: 29 Manual TherapyTreatment Minutes: 14 Skilled Treatment Time Minutes (timed and untimed codes): 43 Total Session Time (minutes): 43 Session Start Time : 1218 Session Stop Time : 1301 Sean Moore PT [facility] 07-02-2023 History of Presen t illness Narrative Episode Visit Count: 3 Therapist That Will Accept/Oversee The Plan Of Care: Sean Moore PT Start of Care Date: 05/14/23 Onset Date: 02/12/11 Patient Identified by Name and Date of : Yes REHABILITATION AND SPORTS THERAPY PHYSICAL THERAPY TREATMENT NOTE ASSESSMENT: Missy Boss tolerated the session with expected muscle soreness. He demonstrated good tolerance to all MT performed this session. The patient will continue to benefit from ongoing skilled physical therapy to progress toward set goals. PLAN FOR NEXT VISIT: STM to forearm as tolerated SUBJECTIVE: The shoulder is sore. Exercises are going ok. They do not make him overly sore to where he cannot stand it. Pain: Pain Pain Level: 2 Pain Location: Shoulder - Left Post Treatment Pain Post Treatment Pain Level: No Change Post Treatment Pain Location: Shoulder - Left OBJECTIVE MEASURES WITH LEVEL OF FUNCTION: Tender along L wrist extensor proximally TREATMENT: Therapeutic Exercise: 1: Shoulder ER cables 1 plate 3 x 10 each arm 2: Shoulder IR cable 1 plate 3 x 10 each arm 3: LUE bicep curl 5# 3 x 10 4: UBE x 4 min (1:1 time spent and HEP discussed) 5: Pec stretch arm low 2 x 30 sec 6: Sleeper stretch 2 x 30 sec Skilled Intervention: Patient was educated in proper exercise technique and purpose for exercises. Skilled judgment was used in selection of appropriate interventions. Provided written instruction for home exercise program to facilitate proper performance and compliance. Manual Therapy: 1: IASTM over wrist extensors and brachioradialis 2: Thumb gliding over bracioradialis firm pressure with pt sitting Skilled Intervention: Manual skills to improve joint mobility, ROM, and decrease pain. Utilized anatomy knowledge of the therapist, and assessment of patient's response to intervention. Billing Therapeutic Exercise Treatment Minutes: 29 Manual TherapyTreatment Minutes: 14 Skilled Treatment Time Minutes (timed and untimed codes): 43 Total Session Time (minutes): 43 Session Start Time : 1218 Session Stop Time : 1301 Sean Moore PT documented in this encounter [facility] 06-26-2023 History of Presen t illness Narrative Program_ID:[id number] Access Code: [email or web address] URL: [email or web address] Date: 06-26-2023 Prepared By: Sean Moore Program Notes Exercises - Shoulder External Rotation with Anchored Resistance - 1 x daily - 7 x weekly - 4 sets - 10 reps - Shoulder Internal Rotation with Resistance - 1 x daily - 7 x weekly - 4 sets - 10 reps - Single Arm Scaption with Dumbbell - 1 x daily - 7 x weekly - 4 sets - 10 reps - Wrist Extensor Stretch With Elbow Flexed: Progression From Elbow at Side - 1 x daily - 7 x weekly - 4 sets - reps Episode Visit Count: 2 Therapist That Will Accept/Oversee The Plan Of Care: Sean Moore PT Start of Care Date: 05/14/23 Onset Date: 02/12/11 Patient Identified by Name and Date of : Yes REHABILITATION AND SPORTS THERAPY PHYSICAL THERAPY TREATMENT NOTE ASSESSMENT: Missy Boss tolerated the session with expected muscle soreness. He demonstrated difficulty with some slight pain with LUE ER exercise due to too high of load used. The patient will continue to benefit from ongoing skilled physical therapy to progress toward set goals. PLAN FOR NEXT VISIT: Possibly add bicep curls SUBJECTIVE: Limited in his exercise due to pain. Pain: Pain Pain Level: (Not rated) Pain Location: Forearm - Left OBJECTIVE MEASURES WITH LEVEL OF FUNCTION: Pain with resisted shoulder ER, scaption, and IR IR strength of LUE is 3+/5 TREATMENT: Therapeutic Exercise: 1: Shoulder ER LUE 1 plate 2 x 10 and RUE 1 plate and 2 rounds 2 x 10 2: Shoulder IR cable 1 plate and 5 rounds 2 x 10 each side 3: Standing scaption 5# 2 x 10 LUE with mod height, and 2 x 10 RUE 4: L wrist extensor stretch x 30 sec Skilled Intervention: Patient was educated in proper exercise technique and purpose for exercises. Correct performance of therapeutic exercises was facilitated with verbal and visual cuing. Manual Therapy: 1: STM thumb gliding over L brachioradialis Skilled Intervention: Manual skills to improve joint mobility, ROM, and decrease pain. Utilized anatomy knowledge of the therapist, and assessment of patient's response to intervention. Billing Manual TherapyTreatment Minutes: 10 Skilled Treatment Time Minutes (timed and untimed codes): 41 Total Session Time (minutes): 51 Session Start Time : 1238 Session Stop Time : 1329 Sean Moore PT documented in this encounter [facility] 06-26-2023 Note HNO ID: [id number] Author: SEAN MOORE PT Service: ? Author Type: Physical Therapist Type: Progress Notes Filed: 06/29/2023 13:18 Note Text: Episode Visit Count: 2 Therapist That Will Accept/Oversee The Plan Of Care: Sean Moore PT Start of Care Date: 05/14/23 Onset Date: 02/12/11 Patient Identified by Name and Date of : Yes REHABILITATION AND SPORTS THERAPY PHYSICAL THERAPY TREATMENT NOTE ASSESSMENT: Missy A Gera tolerated the session with expected muscle soreness. He demonstrated difficulty with some slight pain with LUE ER exercise due to too high of load used. The patient will continue to benefit from ongoing skilled physical therapy to progress toward set goals. PLAN FOR NEXT VISIT: Possibly add bicep curls SUBJECTIVE: Limited in his exercise due to pain. Pain: Pain Pain Level: (Not rated) Pain Location: Forearm - Left OBJECTIVE MEASURES WITH LEVEL OF FUNCTION: Pain with resisted shoulder ER, scaption, and IR IR strength of LUE is 3+/5 TREATMENT: Therapeutic Exercise: 1: Shoulder ER LUE 1 plate 2 x 10 and RUE 1 plate and 2 rounds 2 x 10 2: Shoulder IR cable 1 plate and 5 rounds 2 x 10 each side 3: Standing scaption 5# 2 x 10 LUE with mod height, and 2 x 10 RUE 4: L wrist extensor stretch x 30 sec Skilled Intervention: Patient was educated in proper exercise technique and purpose for exercises. Correct performance of therapeutic exercises was facilitated with verbal and visual cuing. Manual Therapy: 1: STM thumb gliding over L brachioradialis Skilled Intervention: Manual skills to improve joint mobility, ROM, and decrease pain. Utilized anatomy knowledge of the therapist, and assessment of patient's response to intervention. Billing Therapeutic Exercise Treatment Minutes: 41 Manual TherapyTreatment Minutes: 10 Skilled Treatment Time Minutes (timed and untimed codes): 41 Total Session Time (minutes): 51 Session Start Time : 1238 Session Stop Time : 1329 Sean Moore PT [facility] 06-25-2023 Telephone encounter Note Reviewed. Lucy Rinaldi APRN.MAGEN [facility] 06-25-2023 Miscellaneous Notes Reviewed. Lucy Rinaldi APRN.CNP Patient notified. Voices understanding. Appreciative for the information. Patient doesn't need forms back, you may shred them. Elisabet Bridges LPN Please let patient know I have reviewed the information with Dr. Argueta and he feels there is not enough irrefutable evidence in our records to write a letter for the disability. I would recommend seeing an independent nurses medical assistants phlebotomists as it suggested to help with his claim. I am not going to charge him for the visit this morning. Lucy Rinaldi APRN.CNP documented in this encounter [facility] 06-25-2023 Telephone encounter Note Patient notified. Voices understanding. Appreciative for the information. Patient doesn't need forms back, you may shred them. Elisabet Bridges LPN [facility] 06-25-2023 Telephone encounter Note Please let patient know I have reviewed the information with Dr. Argueta and he feels there is not enough irrefutable evidence in our records to write a letter for the disability. I would recommend seeing an independent nurses medical assistants phlebotomists as it suggested to help with his claim. I am not going to charge him for the visit this morning. Lucy Rinaldi APRN.CNP [facility] 06-25-2023 Note HNO ID: [id number] Author: LUCY RINALDI APRN.CNP Service: ? Author Type: Nurse Practitioner Type: Progress Notes Filed: 06/25/2023 11:15 Note Text: No charge for visit as patient only had paperwork which was not able to be completed by myself. Lucy Rinaldi APRN.CNP [facility] 06-25-2023 History of Presen t illness Narrative No charge for visit as patient only had paperwork which was not able to be completed by myself. Lucy Rinaldi APRN.CNP documented in this encounter [facility] 05-14-2023 Note HNO ID: [id number] Author: SEAN MOORE PT Service: ? Author Type: Physical Therapist Type: Progress Notes Filed: 05/14/2023 12:02 Note Text: Episode Visit Count: 1 Therapist That Will Accept/Oversee The Plan Of Care: Sean Moore PT Start of Care Date: 05/14/23 Onset Date: 02/12/11 Patient Identified by Name and Date of : Yes REHABILITATION AND SPORTS THERAPY PHYSICAL THERAPY EVALUATION PLAN OF CARE: Assessment: Missy Boss presents with chief complaint of L shoulder, arm, and forearm pain with occasional numbness/tingling in the fingers that interferes with sleeping . He presents with impairments in flexibility, independence in exercise, overall function, posture, and strength. Patient did not complete the PROMIS? (Patient Reported Outcome Measures Information System). Prognosis for therapy is Good due to: current objective clinical presentation, good overall health status, good support system/ coping skills . Pt demonstrates poor posture, weakness of the L RTC, and familiar pain with loading the supraspinatus and biceps brachii. He will benefit from skilled therapy services to meet the goals established for this plan of care as noted below. Goals for Episode of Care: created on 05/14/23 through 09/03/23 [place] in home exercise program. Perform pulling, lifting, and running without pain. Increased strength of L supraspinatus and subscapularis to 5/5 for decreased pain and improved shoulder mechanics and positioning with exercise and ADL's Improve flexibility of Pectorals for improved shoulder joint mechanics and decreased pain Pt will improve posterior capsule flexibility to 90 degrees of IR with arm abducted to 90 for improved shoulder joint mechanics Improve postural awareness. Patient Goals: Reduce the pain Planned Interventions, Frequency, and Duration: Current Frequency: 1x/week Duration: 4 weeks Total Number of Visits Planned: 4 Planned Treatment Interventions: Therapeutic exercise (64184), Neuromuscular re-education (67611), Manual therapy (07513), Therapeutic activities (85444), Self-correction management (22187), Patient/Family/Caregiver Education PLAN FOR NEXT VISIT: Possibly add in subscap strengthening. Further assess forearm musculature. Loading supraspinatus. Patient demonstrates good understanding of plan of care and treatment. The above goals and plan of care were discussed and agreed upon by patient/family. SUBJECTIVE: Pain in the shoulder and elbow on the L side. Sometimes feels numb. The numbness in the thumb right. Pulling movements hurt. The pain is usually dull. 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 5 points is clinically meaningfully difference Percentiles provide an indication of how the patient's score ranks in relation to the general population. Higher percentile rankings indicate better function/quality of life. 50th percentile is the average of the general population and indicates half of respondents had a worse score. OBJECTIVE MEASURES WITH LEVEL OF FUNCTION: Posture / Alignment Posture: Forward head, Rounded shoulders, Slump R Shoulder Alignment: Rounded shoulder, Protracted scapula L Shoulder Alignment: Rounded shoulder, Protracted scapula Cervical Spine ROM Cervical ROM : Limitation AROM Cervical Flexion AROM: Normal Cervical Extension AROM: Normal Cervical Side-Bend Right AROM: Normal Cervical Side-Bend Left AROM: Normal UE AROM R UE AROM: WNL L UE AROM: WNL UE Flexibility Flexibility: Pectoral Muscles R Pectorals Comments: Tight L Pectorals Comments: Tight UE Joint Mobility R Shoulder joint mobility: Hypomobile L Shoulder joint mobility: Hypomobile UE Joint Mobility Comment: Tight posterior capsules bilaterally UE and Cervical Strength Strength Tested: Shoulder All R Shoulder Flexion: 5/5 (Painful) R Shoulder Abduction (C5): 5/5 R Shoulder Internal Rotation: 4/5 R Shoulder External Rotation: 5/5 L Shoulder Flexion: 5/5 (Painful) L Shoulder Abduction (C5): 5/5 L Shoulder Internal Rotation: 3+/5 L Shoulder External Rotation: 5/5 Special Tests - Shoulder Shoulder Special Tests: Empty Can, Neer Empty Can: Right Positive, Left Positive Neer: Right Negative, Left Positive Education: Education Learning Preferences: Demonstration, Explanation, Performance, Printed Materials Barriers: None Learning/educational needs: Plan of Care, Home exercise program Education Provided: Yes, see treatment interventions for education provided Education Provided (more content not included)... [facility] 05-14-2023 History of Presen t illness Narrative Episode Visit Count: 1 Therapist That Will Accept/Oversee The Plan Of Care: Sean Moore PT Start of Care Date: 05/14/23 Onset Date: 02/12/11 Patient Identified by Name and Date of : Yes REHABILITATION AND SPORTS THERAPY PHYSICAL THERAPY EVALUATION PLAN OF CARE: Assessment: Missy Boss presents with chief complaint of L shoulder, arm, and forearm pain with occasional numbness/tingling in the fingers that interferes with sleeping . He presents with impairments in flexibility, independence in exercise, overall function, posture, and strength. Patient did not complete the PROMIS (Patient Reported Outcome Measures Information System). Prognosis for therapy is Good due to: current objective clinical presentation, good overall health status, good support system/ coping skills . Pt demonstrates poor posture, weakness of the L RTC, and familiar pain with loading the supraspinatus and biceps brachii. He will benefit from skilled therapy services to meet the goals established for this plan of care as noted below. Goals for Episode of Care: created on 05/14/23 through 09/03/23 [place] in home exercise program. Perform pulling, lifting, and running without pain. Increased strength of L supraspinatus and subscapularis to 5/5 for decreased pain and improved shoulder mechanics and positioning with exercise and ADL's Improve flexibility of Pectorals for improved shoulder joint mechanics and decreased pain Pt will improve posterior capsule flexibility to 90 degrees of IR with arm abducted to 90 for improved shoulder joint mechanics Improve postural awareness. Patient Goals: Reduce the pain Planned Interventions, Frequency, and Duration: Current Frequency: 1x/week Duration: 4 weeks Total Number of Visits Planned: 4 Planned Treatment Interventions: Therapeutic exercise (71829), Neuromuscular re-education (02203), Manual therapy (76163), Therapeutic activities (51553), Self-correction management (24399), Patient/Family/Caregiver Education PLAN FOR NEXT VISIT: Possibly add in subscap strengthening. Further assess forearm musculature. Loading supraspinatus. Patient demonstrates good understanding of plan of care and treatment. The above goals and plan of care were discussed and agreed upon by patient/family. SUBJECTIVE: Pain in the shoulder and elbow on the L side. Sometimes feels numb. The numbness in the thumb right. Pulling movements hurt. The pain is usually dull. 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 5 points is clinically meaningfully difference Percentiles provide an indication of how the patient's score ranks in relation to the general population. Higher percentile rankings indicate better function/quality of life. 50th percentile is the average of the general population and indicates half of respondents had a worse score. OBJECTIVE MEASURES WITH LEVEL OF FUNCTION: Posture / Alignment Posture: Forward head, Rounded shoulders, Slump R Shoulder Alignment: Rounded shoulder, Protracted scapula L Shoulder Alignment: Rounded shoulder, Protracted scapula Cervical Spine ROM Cervical ROM : Limitation AROM Cervical Flexion AROM: Normal Cervical Extension AROM: Normal Cervical Side-Bend Right AROM: Normal Cervical Side-Bend Left AROM: Normal UE AROM R UE AROM: WNL L UE AROM: WNL UE Flexibility Flexibility: Pectoral Muscles R Pectorals Comments: Tight L Pectorals Comments: Tight UE Joint Mobility R Shoulder joint mobility: Hypomobile L Shoulder joint mobility: Hypomobile UE Joint Mobility Comment: Tight posterior capsules bilaterally UE and Cervical Strength Strength Tested: Shoulder All R Shoulder Flexion: 5/5 (Painful) R Shoulder Abduction (C5): 5/5 R Shoulder Internal Rotation: 4/5 R Shoulder External Rotation: 5/5 L Shoulder Flexion: 5/5 (Painful) L Shoulder Abduction (C5): 5/5 L Shoulder Internal Rotation: 3+/5 L Shoulder External Rotation: 5/5 Special Tests - Shoulder Shoulder Special Tests: Empty Can, Neer Empty Can: Right Positive, Left Positive Neer: Right Negative, Left Positive Education: Education Learning Preferences: Demonstration, Explanation, Performance, Printed Materials Barriers: None Learning/educational needs: Plan of Care, Home exercise program Education Provided: Yes, see treatment interventions for education provided Education Provided To: Patient Education Mode/Type: Demonstration, Explanation/Discussion, Literature/Printed Materials, Performance Response to Education/Teach Back: States/Identifies, Return Demonstration TREATMENT: PT Treatment Interventions: Therapeutic Exercise Evaluation Therapeutic Exercise: 1: Discussed exam findings, purpose of the HEP and the HEP handout was provided to the pt. HEP discussed in detail with hot to safely and properly perform each therapeutic exercise. Discussed the importance of good posture to prevent shoulder pain. Discussed anatomy and physiology of the shoulder and arm to help understanding of pt's symptoms and how the HEP will help decrease pain and improve function. 2: Sleeper stretch x 30 sec each arm 3: Pec stretch on wall x 30 sec each arm Skilled Intervention: Patient was educated in proper exercise technique and purpose for exercises. Skilled judgment was used in selection of appropriate interventions. Provided written instruction for home exercise program to facilitate proper performance and compliance. Correct performance of therapeutic exercises was facilitated with verbal and visual cuing. Billing * Evaluation Low Complexity: 1 Unit Therapeutic Exercise Treatment Minutes: 24 Skilled Treatment Time Minutes (timed and untimed codes): 45 Total Session Time (minutes): 45 Session Start Time : 1000 Session Stop Time : 1045 Sean Moore PT documented in this encounter [facility] 05-08-2023 Instructions PodlogLucy crespo APRN.MINER HELPER - 05/08/2023 11:24 AM EDT Images from the original note were not included. Bowel Preparation Instructions for: Miralax-Gatorade Preparations IF YOU DO NOT FOLLOW THESE DIRECTIONS, YOUR COLONOSCOPY WILL BE CANCELLED. [place] Instructions: Your bowel must be empty so that your doctor can clearly view your colon. Follow all of the instructions in this handout EXACTLY as they are written. Do NOT eat any solid food the ENTIRE day before your colonoscopy. Buy your bowel preparation at least 5 days before your colonoscopy. Four (4) Dulcolax laxative tablets containing 5mg of bisacodyl each (NOT Dulcolax stool softener) One (1) 8.3oz. bottle Miralax (238 grams) or generic equivalent 2 x 32oz. Bottles of Gatorade (NOT RED) Diabetic Patients: Use G2 (Gatorade 2) TRANSPORTATION on the Day of Your Exam A responsible adult MUST be present with you at Check In prior to your colonoscopy and REMAIN in the endoscopy area until you are discharged. You are NOT ALLOWED to drive, take a taxi or bus, or leave the Endoscopy Center ALONE. If you do not have a responsible special needs bus driver (family member or friend) with you to take you home, your exam cannot be done with sedation and will be cancelled. Please bring a list of all of your current medications, including any Pwhy-djv-Exjvjvu medications with you. Medications If you take insulin, diabetic medications or blood thinners such as Coumadin (warfarin), Plavix (clopidogrel), Ticlid (ticlopidine hydrochloride), Agrylin (anagrelide), Xarelto (Rivaroxaban), Pradaxa (Dabigatran), Eliquis (Apixaban), and Effient (Prasugrel). You MUST call the doctors who orders those medicines for instructions on altering the dosage before your colonoscopy. All other medications should be taken the day of the exam with a sip of water including ASPIRIN. Five (5) Days Before Your Colonoscopy Do NOT take medicines that stop diarrhea - such as Imodium, Kaopectate, or Pepto Bismol. Do NOT take fiber supplements - such as Metamucil, Citrucel, or Perdiem. Do NOT take products that contain iron - such as multi-vitamins (the label lists what is in the products). Three (3) Days Before Your Colonoscopy Do NOT eat high-fiber foods - such as popcorn, beans, seeds (flax, sunflower, quinoa), multigrain bread, nuts, salad/vegetables, or fresh and dried fruit. 1 Bowel Preparation Instructions for: Miralax-Gatorade Preparations One (1) Day Before Your Colonoscopy Only drink clear liquids the ENTIRE DAY before your colonoscopy. Do NOT eat any solid foods. Drink at least 8 ounces of clear liquids every hour after waking up. The clear liquids you can drink include: Clear Liquid (NO RED LIQUIDS) DO NOT DRINK Gatorade, Pedialyte or Powerade Clear broth or bouillon Coffee or tea (no milk or non-dairy creamer) Carbonated and non-carbonated soft drinks Gopi-Aid or other fruit flavored drinks Strained fruit juices (no pulp) Jell-O, popsicles, hard candy Water Alcohol Milk or non-dairy creamers Noodles or vegetables in soup Juice with pulp Liquid you cannot see through Do not use tobacco/vaping products Mix /2 of Miralax bottle (119 grams) in each 32 ounces of Gatorade bottle until dissolved. Keep cool in the refrigerator. DO NOT ADD ICE. The bowel preparation solution will be consumed in two parts. Part 1 5:00 PM - Evening before your colonoscopy Take 4 Dulcolax tablets. 6 PM - Evening before your colonoscopy Drink 32 oz. of the mixed solution. Drink an 8 oz. glass of bowel preparation every 15 minutes for a total of 4 glasses. Fifteen (15) minutes later, drink an 8 oz. glass of of clear liquids every 15 minutes for a total of 2 glasses. You may continue to drink clear liquids till midnight. Part 2 On the day of your colonoscopy you may drink clear liquids up to (three) 3 hours prior to procedure. 4 1/2 hours before your colonoscopy Take another 32 oz. bottle of mixed solution. Drink an 8 oz. glass of bowel prep every 15 minutes for a total of 4 glasses. Fifteen (15) minutes later, drink an 8 oz. glass of clear liquids every 15 minutes for a total of 2 glasses. You may continue to drink clear liquids up to (three) 3 hours before your exam. 2 01/2019 documented in this encounter [facility] 05-08-2023 History of Presen t illness Narrative 05/03/2023 Patient presents with: Physical SUBJECTIVE: This is a 48 year old that is here today for Above Complaints. Since last office visit has been in good health without ER visits or hospitalizations. Has not been seen by primary care in over two years. Left shoulder and left elbow pain bothering him since 2011, progressively worsening. Pain radiates from shoulder down to elbow. Pain is intermittent and aggravated by working out. Pain is aching. Has used some heat, ice and ibuprofen. Ibuprofen and rest helps at times. 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 MEDICATIONS No current outpatient medications on file. No current facility-administered medications for this visit. Medications and allergies reviewed by this provider. SOCIAL HISTORY Social History Tobacco Use Smoking status: Former Types: Cigars Smokeless tobacco: Former Quit date: 06/01/2013 Vaping Use Vaping Use: Never used Substance Use Topics Alcohol use: Yes Alcohol/week: 4.0 standard drinks of alcohol Types: 4 Glasses of Wine (5oz) per week Comment: ocas - weekends, right after dinner Drug use: No REVIEW OF SYSTEMS GENERAL: No weight loss, malaise or fevers HEENT: Negative for frequent or significant headaches, No changes in hearing or vision, no nose bleeds or other nasal problems NECK: Negative for lumps, goiter, pain and significant neck swelling RESPIRATORY: Negative for cough, hemoptysis, wheezing, COPD, dyspnea or shortness of breath CARDIOVASCULAR: Negative for chest pain, leg swelling, hypertension, CHF or palpitations GI: No nausea, vomiting, or diarrhea : No history of dysuria, frequency or incontinence MUSCULOSKELETAL: Negative for joint pain or swelling, back pain or muscle pain and low back pain SKIN: Negative for lesions, rash, and itching PSYCH: Negative for sleep disturbance, mood disorder and recent psychosocial stressors HEMATOLOGY/LYMPHOLOGY: Negative for prolonged bleeding, bruising easily or swollen nodes ENDOCRINE: Negative for cold or heat intolerance, polyuria, polydipsia and goiter NEURO: No history of headaches, syncope, paralysis, seizures or tremors All other reviewed and negative other than HPI. OBJECTIVE: BP 124/72 Pulse (!) 53 Resp 16 Ht 161.5 cm (5' 3.58) Wt 75.2 kg (165 lb 12.8 oz) SpO2 99% BMI 28.83 kg/m . Vital signs reviewed by this provider. APPEARANCE Well appearing, alert, in no acute distress, well-hydrated, well nourished. EYES conjunctiva and sclera normal. Ears: R TM - clear with good landmarks, L TM - clear with good landmarks NECK Supple, no adenopathy; thyroid symmetric, normal size, no bruits HEART RRR with normal S1 and S2, no murmurs, no gallops, no JVD appreciated LUNG clear to auscultation. No wheezes, rhonchi or rales EXTREMITIES Extremities normal, No deformities, No skin discoloration, and No edema SKIN Skin color, texture, turgor normal, no suspicious rashes or lesions to exposed skin LEFT SHOULDER/ELBOW: No obvious deformity, swelling, or erythema. Mild TTP over posterior shoulder. TTP along bicep tendon. FROM without difficulty. Some discomfort with abduction and external rotation. Negative Balderas and Librado's Latest Ref Rng 07/30/2020 Protein, Total 6.3 - 8.0 g/dL 7.7 Albumin 3.9 - 4.9 g/dL 4.6 Calcium 8.5 - 10.2 mg/dL 10.0 Bilirubin, Total 0.2 - 1.3 mg/dL 0.5 Alkaline Phosphatase 38 - 113 U/L 83 AST 14 - 40 U/L 28 Glucose 74 - 99 mg/dL 92 BUN 9 - 24 mg/dL 20 Creatinine 0.73 - 1.22 mg/dL 0.83 Sodium 136 - 144 mmol/L 140 Potassium 3.7 - 5.1 mmol/L 4.6 Chloride 97 - 105 mmol/L 105 CO2 22 - 30 mmol/L 23 Anion Gap 9 - 18 mmol/L 12 ALT 10 - 54 U/L 19 eGFR- >60 eGFR-All Other Races . >60 Total Cholesterol, Nonfasting <200 mg/dL 169 Triglycerides, Nonfasting <150 mg/dL 90 HDL Cholesterol, Nonfasting >39 mg/dL 46 LDL Cholesterol, Nonfasting <100 mg/dL 105 (H) Non HDL Cholesterol, Nonfasting <130 mg/dL 123 VLDL Cholesterol, Nonfasting <30 mg/dL 18 Total Chol/HDL Ratio, Nonfasting <5.10 mg/dL 3.67 LDL/HDL Ratio, Nonfasting <2.54 mg/dL 2.28 Legend: (H) High Colorectal Cancer Screening Never done Influenza Vaccine(1) due on 08/12/2023 HIV Screening due on 05/07/2024 Covid-19 Vaccine(2 - season) due on 05/07/2024 Diabetes Screening due on 07/31/2023 Lipid Screening due on 07/30/2025 DTaP,Tdap,Td Vaccine(3 - Td or Tdap) due on 12/18/2030 Hepatitis B Vaccine Completed Depression Assessment Completed HPV Vaccine Aged Out Hepatitis C Screening Discontinued ASSESSMENT/PLAN: 1. Annual physical exam - ICD9: V70.0, ICD10: Z00.00 (primary diagnosis) - Counseled on healthy diet and regular exercise - Colorectal cancer screening recommended - agrees to Colonoscopy - Follow up for annual exam in one year - COMP METABOLIC PANEL - CBC + DIFF 2. Screening for colon cancer - ICD9: V76.51, ICD10: Z12.11 - COLONOSCOPY SCREENING 3. Screening for hyperlipidemia - ICD9: V77.91, ICD10: Z13.220 - LIPID PANEL BASIC 4. Left elbow pain - ICD9: 719.42, ICD10: M25.522 - consider bicep tendonitis vs arthritis - no red flag symptoms or exam findings - red flag symptoms discussed - continue OTC oral ad topical pain relievers as directed on packaging - CONSULT TO PHYSICAL THERAPY - XR ELBOW GENERAL 2V AP/LAT LEFT - follow-up if symptoms fail to improve to ER with red flag symptoms 5. Chronic left shoulder pain - ICD9: 719.41, 338.29, ICD10: M25.512, G89.29 - consider bicep tendonitis vs arthritis - no red flag symptoms or exam findings - red flag symptoms discussed - continue OTC oral ad topical pain relievers as directed on packaging - CONSULT TO PHYSICAL THERAPY - XR SHOULDER GENERAL 3V OR MORE AP/TRUE AP/OTHER LEFT - follow-up if symptoms fail to improve to ER with red flag symptoms Lucy Rinaldi APRN.MINER HELPER Prescription instructions reviewed with patient as applicable. Patient advised if symptoms do not improve or if symptoms worsen sooner, to contact their primary care physician. Potential red flag symptoms discussed with the patient. Reviewed appropriate action plan to take if red flag symptoms occur. Patient agreeable to treatment plan. documented in this encounter [facility] 05-08-2023 Note HNO ID: [id number] Author: LUCY RINALDI APRN.MINER HELPER Service: ? Author Type: Nurse Practitioner Type: Progress Notes Filed: 05/08/2023 12:29 Note Text: 05/03/2023 Patient presents with: Physical SUBJECTIVE: This is a 48 year old that is here today for Above Complaints. Since last office visit has been in good health without ER visits or hospitalizations. Has not been seen by primary care in over two years. Left shoulder and left elbow pain bothering him since 2011, progressively worsening. Pain radiates from shoulder down to elbow. Pain is intermittent and aggravated by working out. Pain is aching. Has used some heat, ice and ibuprofen. Ibuprofen and rest helps at times. Denies past injury or surgery, swelling, or redness Reports he has upcoming physical agility test for [employer] and fears this will aggravate his pain PAST MEDICAL HISTORY Diagnosis Date GERD (gastroesophageal reflux disease) ALLERGIES Patient has no known allergies. MEDICATIONS No current outpatient medications on file. No current facility-administered medications for this visit. Medications and allergies reviewed by this provider. SOCIAL HISTORY Social History Tobacco Use Smoking status: Former Types: Cigars Smokeless tobacco: Former Quit date: 06/01/2013 Vaping Use Vaping Use: Never used Substance Use Topics Alcohol use: Yes Alcohol/week: 4.0 standard drinks of alcohol Types: 4 Glasses of Wine (5oz) per week Comment: ocas - weekends, right after dinner Drug use: No REVIEW OF SYSTEMS GENERAL: No weight loss, malaise or fevers HEENT: Negative for frequent or significant headaches, No changes in hearing or vision, no nose bleeds or other nasal problems NECK: Negative for lumps, goiter, pain and significant neck swelling RESPIRATORY: Negative for cough, hemoptysis, wheezing, COPD, dyspnea or shortness of breath CARDIOVASCULAR: Negative for chest pain, leg swelling, hypertension, CHF or palpitations GI: No nausea, vomiting, or diarrhea : No history of dysuria, frequency or incontinence MUSCULOSKELETAL: Negative for joint pain or swelling, back pain or muscle pain and low back pain SKIN: Negative for lesions, rash, and itching PSYCH: Negative for sleep disturbance, mood disorder and recent psychosocial stressors HEMATOLOGY/LYMPHOLOGY: Negative for prolonged bleeding, bruising easily or swollen nodes ENDOCRINE: Negative for cold or heat intolerance, polyuria, polydipsia and goiter NEURO: No history of headaches, syncope, paralysis, seizures or tremors All other reviewed and negative other than HPI. OBJECTIVE: BP 124/72 Pulse (!) 53 Resp 16 Ht 161.5 cm (5' 3.58) Wt 75.2 kg (165 lb 12.8 oz) SpO2 99% BMI 28.83 kg/m? . Vital signs reviewed by this provider. APPEARANCE Well appearing, alert, in no acute distress, well-hydrated, well nourished. EYES conjunctiva and sclera normal. Ears: R TM - clear with good landmarks, L TM - clear with good landmarks NECK Supple, no adenopathy; thyroid symmetric, normal size, no bruits HEART RRR with normal S1 and S2, no murmurs, no gallops, no JVD appreciated LUNG clear to auscultation. No wheezes, rhonchi or rales EXTREMITIES Extremities normal, No deformities, No skin discoloration, and No edema SKIN Skin color, texture, turgor normal, no suspicious rashes or lesions to exposed skin LEFT SHOULDER/ELBOW: No obvious deformity, swelling, or erythema. Mild TTP over posterior shoulder. TTP along bicep tendon. FROM without difficulty. Some discomfort with abduction and external rotation. Negative Balderas and Neer's Latest Ref Rng 07/30/2020 Protein, Total 6.3 - 8.0 g/dL 7.7 Albumin 3.9 - 4.9 g/dL 4.6 Calcium 8.5 - 10.2 mg/dL 10.0 Bilirubin, Total 0.2 - 1.3 mg/dL 0.5 Alkaline Phosphatase 38 - 113 U/L 83 AST 14 - 40 U/L 28 Glucose 74 - 99 mg/dL 92 BUN 9 - 24 mg/dL 20 Creatinine 0.73 - 1.22 mg/dL 0.83 Sodium 136 - 144 mmol/L 140 Potassium 3.7 - 5.1 mmol/L 4.6 Chloride 97 - 105 mmol/L 105 CO2 22 - 30 mmol/L 23 Anion Gap 9 - 18 mmol/L 12 ALT 10 - 54 U/L 19 eGFR- >60 eGFR-All Other Races . >60 Total Cholesterol, Nonfasting <200 mg/dL 169 Triglycerides, Nonfasting <150 mg/dL 90 HDL Cholesterol, Nonfasting >39 mg/dL 46 LDL Cholesterol, Nonfasting <100 mg/dL 105 (H) Non HDL Cholesterol, Nonfasting <130 mg/dL 123 VLDL Cholesterol, Nonfasting <30 mg/dL 18 Total Chol/HDL Ratio, Nonfasting <5.10 mg/dL 3.67 LDL/HDL Ratio, Nonfasting <2.54 mg/dL 2.28 Legend: (H) High Colorectal Cancer Screening Never done Influenza Vaccine(1) due on 08/12/2023 HIV Screening due on 05/07/2024 Covid-19 Vaccine(2 - season) due on 05/07/2024 Diabetes Screening due on 07/31/2023 Lipid Screening due on 07/30/2025 DTaP,Tdap,Td Vaccine(3 - Td or Tdap) due on 12/18/2030 Hepatitis B Vaccine Completed Depression Assessment Completed HPV Vaccine Aged Out Hepatitis C Screening Discontin (more content not included)... [facility] 01-29-2023 Discharge summary Note Date/Time January 29, 2023 8:57pm [facility] Medical Records Department [address] [place] [address] Emergency Department Summary 01/29/23 MR#: [id number] Acct: [id number] Name: MISSY BOSS Rep #:[id number] : 1975 47 From: Yemi Oliver MD PCP: Care Physician,No Primary Status :REG ER Location: ED HPI History of Present Illness Chief Complaint: Laceration Detail of Chief Complaint: Skin avulsion tip left thumb Informant: patient Occured/Mechanism Mechanism/Context: Yes injury Comment: Patient cut the tip of his left thumb with knife. Skin has been avulsed down to subcutaneous tissue. Onset/Context/Timing Onset: Hours (At approximately 1830) Context: Sudden Onset Location: Tip of left thumb Current Severity: Mild Maximum Severity: Mild Worsened by: Patient presents because of persistent bleeding Relieved by: Nothing Associated Symptoms Associated Symptoms: Negative for Parasthesia, Weakness or Loss of Funtion Narrative Narrative: Patient is a 47-year-old nahoe-xtxi-llywkvim male who presents with laceration to the left thumb. He avulsed the tip. Is down to subcutaneous tissue. He denies paresthesia, anesthesia medics. Tetanus within the last 5 years. He hasno other complaints. He is not on anticoagulant. He is on Plavix. Tetanus Immunization: <5 years Prior similar symptoms: No Recent Illness/Hospitalization: No PFSH PFSH Medical History GERD (gastroesophageal reflux disease) History of left heart catheterization (LHC) (~07/20/20) Home Medications omeprazole 20 mg capsule,delayed release 20 mg PO DAILY GERD 07/19/20 [History Last Taken 07/19/20] aspirin 81 mg tablet,delayed release 81 mg PO DAILY@0800 #30 tabs 08/13/20 [Rx Last Taken Unknown] clopidogrel 75 mg tablet (Plavix) 75 mg PO DAILY #30 tabs 08/13/20 [Rx Last Taken Unknown] Allergy/AdvReac Type Severity Reaction Status Date / Time No Known Allergies Allergy Verified 01/29/23 20:22 Family History Father CAD (coronary artery disease) Social History Smoking Status: Never smoker substance use type: does not use ROS ROS ED Hematologic/Lymphatic Hematologic/Lymphatic: Reports easy bleeding and easy bruising EXAM Physical Exam Const Vital Signs: 01/29/23 20:22 Temperature 96.9 F L Temperature Source Temporal Pulse Rate 62 Respiratory Rate 18 Blood Pressure 135/73 H Blood Pressure Mean 93 Pulse Ox 99 Oxygen Delivery Method Room Air Positive well nourished and well developed General Appearance ED: well developed and NAD HEENT normocephalic and atraumatic Eyes PERRL and EOMs intact bilaterally Resp normal respiratory effort Cardio regular rate and regular rhythm Extremity full ROM Extremity Narrative: Patient has avulsed tissue tip of the left thumb that is 3 x 5 mm in size. There is active bleeding. There is no subungual hematoma. Median, radial and ulnar function intact. Neuro oriented x3, CN's II-XII intact bilaterally and moves all extremities Sensorium / Orientation: alert Skin Skin Narrative: Avulsed tissue tip left thumb. Suspect his bleeding is due to the fact that he is on aspirin and Plavix. MDM MDM MDM Narrative Medical decision making narrative: Skin avulsion with persistent bleeding due to antithrombotic. Will have nurse clean wound and pressure dressing. He will be discharged home. Instructed not to remove the dressing for 48 hours. 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, HTN (hypertension), Antiplatelet or antithrombotic long-term use, History of CAD (coronary artery disease) Instructions: Finger Tip Amputation Open Tx Prescriptions: No Action clopidogrel [Plavix] 75 mg tablet 75 mg PO DAILY Qty: 30 2RF Rx Instructions: Prescription to stop after 3 months aspirin 81 mg tablet,delayed release (DR/EC) 81 mg PO DAILY@0800 Qty: 30 2RF Rx Instructions: Prescription to stop after 3 months omeprazole 20 mg Capsule,Delayed Release(Dr/Ec) 20 mg PO DAILY Primary Care Provider: Care Physician,No Primary Referrals: Care Physician,No Primary [Primary Care Provider] - Doctor,Your [Non-Staff] - 3-5 Days if not improving Disposition Disposition: Home, Self Care What to do if you have Problems For any increased pain, shortness of breath, bleeding, nausea or vomiting, chestpain, or any unexpected problems, contact your Primary Care Provider. Call [facility] ([phone]) or report to the closest Emergency Room. Call 911 if necessary. 01/29/232107 <Electronically signed by Yemi Oliver MD> Cosigner Signature (if applicable): CC: No Primary Care Physician ~ Signed [facility] Work Phone: [phone] 128-980711-16-2022 Miscellaneous Notes* Telephone Encounter - Joya Rowan LPN - 12/28/2021 3:24 PM EST Left a message for pt to call the office and ask to speak to a nurse. Joya Rowan LPN * Telephone Encounter - Miya Benson Cma - 12/26/2021 9:22 AM EST Left message for patient to return call to office Miya Benson Cma * Telephone Encounter - Lucy Rinaldi APRN.CNP - 12/26/2021 7:47 AM EST Has patient ever used anything for motion sickness in the past ? Lucy Rinaldi APRN.CNP * Telephone Encounter - Ciera Tsai Pss - 12/23/2021 3:29 PM EST Patient called asking for a prescription for sea sickness patches for a cruise. Please advise. [facility] Miscellaneous Notes* Telephone Encounter - Rosalina Yao Pss - 08/09/2021 10:32 AM EDT Patient returned office call and stated he has an appointment today with [facility]. * Telephone Encounter - Elisabet Bridges LPN - 08/09/2021 9:59 AM EDT Consult faxed to [facility] at [phone]. Patient telephoned. Message left to call office with questions. Elisabet Bridges LPN * Telephone Encounter - Lucy Rinaldi APRN.CNP - 08/09/2021 9:03 AM EDT Derm consult placed, please fax order to [facility]. Please let patient know when faxed. Lucy Rinaldi APRN.MAGEN' * Telephone Encounter - Joya Rowan LPN - 08/09/2021 8:57 AM EDT Pt called in and states he needs to have a dermatology referral sent to [facility]. Joya Rowan LPN [facility] History of Present illness Narrative* Lucy Rinaldi APRN.MAGEN - 08/09/2021 8:22 AM EDT 08/09/2021 Patient presents with: Derm Problem Video visit SUBJECTIVE: This is a 46 year old that is here today for Above Complaints. ONSET: few months ago LOCATION: left upper cheekbone DURATION: constant CHARACTERISTICS: indented, flakes at times AGGRAVATING FEATURES: none ALLEVIATING FEATURES: has not tried anything RADIATION: none Personal or family hx of skin cancer: N Hx of eczema: No Hx of psoriasis: No Any new: Lotions: N Medications: No PAST MEDICAL HISTORY Diagnosis Date GERD (gastroesophageal reflux disease) ALLERGIES Patient has no known allergies. MEDICATIONS Current Outpatient Medications Medication Sig benzonatate (TESSALON PERLE) 100 mg capsule Take 2 capsules by mouth three times daily as needed. aspirin, enteric coated (ASPIRIN, ENTERIC COATED) 81 mg EC tablet Take 81 mg by mouth once daily. (Patient not taking: Reported on 07/14/2021 ) atorvastatin (LIPITOR) 10 mg tablet Take 10 mg by mouth once daily. (Patient not taking: Reported on 07/14/2021 ) clopidogrel (PLAVIX) 75 mg tablet Take 75 mg by mouth once daily. (Patient not taking: Reported on 07/14/2021 ) lisinopril (ZESTRIL, PRINIVIL) 5 mg tablet Take 5 mg by mouth once daily. (Patient not taking: Reported on 07/14/2021 ) omeprazole (PRILOSEC) 20 mg capsule Take 1 capsule by mouth once daily. No current facility-administered medications for this visit. Medications and allergies reviewed by this provider. SOCIAL HISTORY Social History Tobacco Use Smoking status: Former Smoker Types: Cigars Smokeless tobacco: Former User Quit date: 06/01/2013 Vaping Use Vaping Use: Never used Substance Use Topics Alcohol use: Yes Alcohol/week: 10.0 standard drinks Types: 4 Glasses of Wine (5oz) per week Comment: ocas - weekends, right after dinner Drug use: No REVIEW OF SYSTEMS All other reviewed and negative other than HPI. OBJECTIVE: There were no vitals taken for this visit.. Vital signs reviewed by this provider. APPEARANCE Well appearing, alert, in no acute distress, well-hydrated, well nourished. SKIN: Approximately less than 5 mm circular brown area to left upper cheek. Very difficult to disern characteristics over video exam due to video quality and the fact I can not physically touch area.Does not appear to be any surrounding erythema COVID-19 VACCINE(1) Never done HIV SCREENING Never done DTAP,TDAP,TD(2 - Td or Tdap) due on 10/01/2020 DEPRESSION SCREENING due on 07/30/2021 LIPID SCREEN due on 07/30/2025 INFLUENZA Completed HEPATITIS C SCREENING Discontinued ASSESSMENT/PLAN: 1. Skin lesion - ICD9: 709.9, ICD10: L98.9 - recommend he see dermatology - he is going to call [facility] locally for appointment, he will let me know if he needs a referral faxed Lucy Rinaldi APRN.CNP Prescription instructions reviewed with patient as applicable. Patient advised if symptoms do not improve or if symptoms worsen sooner, to contact their primary care physician. Potential red flag symptoms discussed with the patient. Reviewed appropriate action plan to take if red flag symptoms occur. Patient agreeable to treatment plan. [facility] History of Present illness Narrative* Grzegorz Bryant APRN.CNP - 07/14/2021 1:24 PM EDT Subjective HPI HPI Missy Boss is a 46 year old male who presents today for CC of cough, sinus pain. This started 1 week ago. Has tried otc medication without relief. Symptoms are worsened by nothing. Risk factors sick exposures at home. Denies cp/sob. .Patient presents with: Cough: Pt denied SOB, chest pain onset x1 wk, neg home Covid test 07/13/21 PAST MEDICAL HISTORY Diagnosis Date GERD (gastroesophageal reflux disease) PAST SURGICAL HISTORY Procedure Laterality Date ESOPHAGOGASTRODUODENOSCOPY TRANSORAL DIAGNOSTIC 07/25/2012 EGD LEFT HEART CATH,PERCUTANEOUS 07/20/2020 ALLERGIES Patient has no known allergies. MEDICATIONS aspirin, enteric coated (ASPIRIN, ENTERIC COATED) 81 mg EC tablet Take 81 mg by mouth once daily. atorvastatin (LIPITOR) 10 mg tablet Take 10 mg by mouth once daily. clopidogrel (PLAVIX) 75 mg tablet Take 75 mg by mouth once daily. lisinopril (ZESTRIL, PRINIVIL) 5 mg tablet Take 5 mg by mouth once daily. omeprazole (PRILOSEC) 20 mg capsule Take 1 capsule by mouth once daily. FAMILY HISTORY Problem Relation Age of Onset Breast Cancer Mother Lipids Father other (CABG) Father Cancer Maternal Grandmother other (OR) Paternal Grandfather Stroke Paternal Grandfather Social History Tobacco Use Smoking status: Former Smoker Types: Cigars Smokeless tobacco: Former User Quit date: 06/01/2013 Vaping Use Vaping Use: Never used Substance Use Topics Alcohol use: Yes Alcohol/week: 10.0 standard drinks Types: 4 Glasses of Wine (5oz) per week Comment: ocas - weekends, right after dinner Drug use: No Review of Systems Constitutional: Negative for fever. HENT: Positive for congestion and sinus pain. Negative for ear pain, nosebleeds and sore throat. Respiratory: Positive for cough and sputum production. Negative for shortness of breath and wheezing. Cardiovascular: Negative for chest pain. Musculoskeletal: Negative for neck pain. Skin: Negative for itching and rash. Objective Blood pressure 132/84, pulse 76, temperature 36.7 C (98 F), resp. rate 16, weight 78.2 kg (172 lb 6.4 oz), SpO2 100 %. Physical Exam Constitutional: General: He is not in acute distress. Appearance: He is not toxic-appearing or diaphoretic. HENT: Head: Normocephalic and atraumatic. Cardiovascular: Rate and Rhythm: Normal rate and regular rhythm. Heart sounds: Normal heart sounds, S1 normal and S2 normal. Pulmonary: Effort: Pulmonary effort is normal. Breath sounds: Rhonchi (scattered) present. No decreased breath sounds, wheezing or rales. Lymphadenopathy: Cervical: No cervical adenopathy. Right cervical: No superficial cervical adenopathy. Left cervical: No superficial cervical adenopathy. Neurological: Mental Status: He is alert and oriented to person, place, and time. Gait: Gait is intact. ASSESSMENT/PLAN: 1. Sinobronchitis - ICD9: 473.9, 490, ICD10: J32.9, J40 - Will begin treatment with Doxycycline - Supportive care with plenty of fluids, rest, and analgesia prn. - Follow up in 3-5 days if symptoms persist or worsen. -If you experience chest pain/shortness of breath go to ER - PREDNISONE 20 MG TABLET - DOXYCYCLINE MONOHYDRATE 100 MG TABLET - BENZONATATE 100 MG CAPSULE Grzegorz Bryant APRN.MINER HELPER [facility] Diagnosis Sinobronchitis- Primary Unspecified sinusitis (chronic) [facility]* Diagnosis Skin lesion- Primary Unspecified disorder of skin and subcutaneous tissue documented in this encounter [facility] note* Diagnosis Skin lesion- Primary Unspecified disorder of skin and subcutaneous tissue documented in this encounter [facility] noteNo assessment information availableWSheltering Arms [facility] Work Phone: Evaluation note* Diagnosis Annual physical exam- Primary Routine general medical examination at a health care facility Screening for colon cancer Special screening for malignant neoplasms, colon Screening for hyperlipidemia Screening for lipoid disorders Left elbow pain Pain in joint, upper arm Chronic left shoulder pain Pain in joint, shoulder region documented in this encounter [facility] note* Diagnosis Pain in left elbow- Primary Pain in joint, upper arm documented in this encounter [facility] note* Diagnosis Sinus complaint documented in this encounter [facility] note* Diagnosis APPOINTMENT CANCELLED- Primary documented in this encounter [facility] note* Diagnosis Pain in left elbow- Primary Pain in joint, upper arm documented in this encounter [facility] note* Diagnosis Pain in left elbow- Primary Pain in joint, upper arm documented in this encounter [facility] note* Diagnosis Pain in left elbow- Primary Pain in joint, upper arm documented in this encounter [facility] note* Diagnosis Bacterial sinusitis- Primary Unspecified sinusitis (chronic) documented in this encounter [facility] for referral (narrative)* Diagnostic Procedure Only (Routine) - Pending Review Specialty Diagnoses / Procedures Referred By Vinay baker Referred To Contact XR IMAGING Diagnoses Left elbow pain Chronic left shoulder pain Procedures XR ELBOW GENERAL 2V AP/LAT LEFT RADEX ELBOW 2 VIEWS Lucy Rinaldi APRN.CNP [address] [place] [address] [place] [address] Referral ID Status Reason Start Date Expiration Date Visits Requested Visits Authorized [id number] Pending Review Auto-Generat ed Referral 05/08/2023 06/06/2024 1 1 * Diagnostic Procedure Only (Routine) - Pending Review Specialty Diagnoses / Procedures Referred By Vinay t Referred To Contact XR IMAGING Diagnoses Chronic left shoulder pain Procedures XR SHOULDER GENERAL 3V OR MORE AP/TRUE AP/OTHER LEFT RADEX SHOULDER COMPLETE MINIMUM 2 VIEWS Lucy Rinaldi APRN.CNP [address] [place] [address] [facility] [id number] Referral ID Status Reason Start Date Expiration Date Visits Requested Visits Authorized [id number] Pending Review Auto-Generat ed Referral 05/08/2023 06/06/2024 1 1 * Physical Therapy (Routine) - Pending Review Specialty Diagnoses / Procedures Referred By Contac t Referred To Contact [facility] [facility] INS Diagnoses Acute pain of left shoulder Left elbow pain Procedures CONSULT TO PHYSICAL THERAPY PHYSICAL THERAPY EVALUATION HIGH COMPLEX 45 MINS PodlogLucy crespo APRN.MINER HELPER [address] [place] [address] [facility] [address] [address] Referral ID Status Reason Start Date Expiration Date Visits Requested Visits Authorized [id number] Pending Review Auto-Generat ed Referral 05/08/2023 05/07/2024 1 1 * Outpatient Procedure (Routine) - Pending Review Specialty Diagnoses / Procedures Referred By Contac t Referred To Contact [facility] Diagnoses Screening for colon cancer Procedures COLONOSCOPY SCREENING COLONOSCOPY FLX DX W/COLLJ SPEC WHEN PFRMD Lucy Rinaldi APRN.MINER HELPER [address] [place] [address] [facility] [address] [place] [id number] Referral ID Status Reason Start Date Expiration Date Visits Requested Visits Authorized [id number] Pending Review Auto-Generat ed Referral OON/Self Pay Override 05/08/2023 05/07/2024 1 1 [facility] Reason for Referral Specialty Diagnoses / Procedures Referred By Contac t Referred To Contact Dermatology Diagnoses Skin lesion Procedures CONSULT TO DERMATOLOGY EmilielogLucy crespo APRN.MINER HELPER [address] [place] [address] Referral ID Status Reason Start Date Expiration Date Visits Requested Visits Authorized [id number] Ref Not Required PCP Requested Referral 08/09/2021 08/09/2022 1 1 Chief Complaint and Reason for Visit Chief Complaint laceration Advance Directives No Advanced Directives Records Found Advance Directive Response Recorded Date/ Time Living Will Yes January 29, 023 8:51pm Power of Plasterer Foreman Yes January 29, 2023 8:51pm Name of Medical Power of Plasterer Foreman GEOVANY BOSS January 29, 2023 8:51pm Summary Purpose Family History No Family History Records Found Additional Source Comments Source Comments (unrecognize d section and content) In the event this informatio n is protected by the Federal Confidentiality of Alcohol and Drug Abuse Patient Records regulations: The Federal rules restrict any use of the information to criminally investigate or prosecute any alcohol or drug abuse patient.[facility] the event this information is protected by the Federal Confidentiality of Alcohol and Drug Abuse Patient Records regulations: The Federal rules restrict any use of the information to criminally investigate or prosecute any alcohol or drug abuse patient.[facility] the event this information is protected by the Federal Confidentiality of Alcohol and Drug Abuse Patient Records regulations: The Federal rules restrict any use of the information to criminally investigate or prosecute any alcohol or drug abuse patient.[facility] the event this information is protected by the Federal Confidentiality of Alcohol and Drug Abuse Patient Records regulations: The Federal rules restrict any use of the information to criminally investigate or prosecute any alcohol or drug abuse patient.[facility] the event this information is protected by the Federal Confidentiality of Alcohol and Drug Abuse Patient Records regulations: The Federal rules restrict any use of the information to criminally investigate or prosecute any alcohol or drug abuse patient.[facility] the event this information is protected by the Federal Confidentiality of Alcohol and Drug Abuse Patient Records regulations: The Federal rules restrict any use of the information to criminally investigate or prosecute any alcohol or drug abuse patient.[facility] the event this information is protected by the Federal Confidentiality of Alcohol and Drug Abuse Patient Records regulations: The Federal rules restrict any use of the information to criminally investigate or prosecute any alcohol or drug abuse patient.[facility] the event this information is protected by the Federal Confidentiality of Alcohol and Drug Abuse Patient Records regulations: The Federal rules restrict any use of the information to criminally investigate or prosecute any alcohol or drug abuse patient.[facility] the event this information is protected by the Federal Confidentiality of Alcohol and Drug Abuse Patient Records regulations: The Federal rules restrict any use of the information to criminally investigate or prosecute any alcohol or drug abuse patient.[facility] the event this information is protected by the Federal Confidentiality of Alcohol and Drug Abuse Patient Records regulations: The Federal rules restrict any use of the information to criminally investigate or prosecute any alcohol or drug abuse patient.[facility] the event this information is protected by the Federal Confidentiality of Alcohol and Drug Abuse Patient Records regulations: The Federal rules restrict any use of the information to criminally investigate or prosecute any alcohol or drug abuse patient.[facility] the event this information is protected by the Federal Confidentiality of Alcohol and Drug Abuse Patient Records regulations: The Federal rules restrict any use of the information to criminally investigate or prosecute any alcohol or drug abuse patient.[facility] the event this information is protected by the Federal Confidentiality of Alcohol and Drug Abuse Patient Records regulations: The Federal rules restrict any use of the information to criminally investigate or prosecute any alcohol or drug abuse patient.[facility] the event this information is protected by the Federal Confidentiality of Alcohol and Drug Abuse Patient Records regulations: The Federal rules restrict any use of the information to criminally investigate or prosecute any alcohol or drug abuse patient.[facility] the event this information is protected by the Federal Confidentiality of Alcohol and Drug Abuse Patient Records regulations: The Federal rules restrict any use of the information to criminally investigate or prosecute any alcohol or drug abuse patient.[facility] the event this information is protected by the Federal Confidentiality of Alcohol and Drug Abuse Patient Records regulations: The Federal rules restrict any use of the information to criminally investigate or prosecute any alcohol or drug abuse patient.[facility] Reason for Visit (unrecogniz ed section and content) Reason Comments Physical Therapy Specialty Diagnoses / Procedures Referred By Contac t Referred To Contact PHYSICAL THERAPY Diagnoses M25.512 M25.522 Procedures Physical Therapy PodlogarLucy APRN.MINER HELPER [address] [place] [address] Sean Moore, PT [address] [place] [address] Referral ID Status Reason Start Date Expiration Date Visits Requested Visits Authorized [id number] Authorized OON/Self Pay Override 02/12/2023 02/12/2024 94 99 Specialty Diagnoses / Procedures Referred By Contac t Referred To Contact [facility] Diagnoses M25.512 M25.522 Procedures Physical Therapy PodlogLucy crespo APRN.MINER HELPER [address] [place] [address] [place] [address] [address] [place] [address] Reason Comments Cough Pt denied SOB, chest pain onset x1 wk, neg home Covid test 07/13/21 Reason Comments Derm Problem Reason Comments dermatology referrral Reason Comments error Reason Comments Patient Question Reason Comments Physical Reason Comments PT Eval Referral ID Status Reason Start Date Expiration Date Visits Requested Visits Authorized [id number] Authorized OON/Self Pay Override 02/12/2023 02/12/2024 99 99 Reason Comments Forms Reason Comments PT Progress Note Reason Comments health information Reason Comments Cough Chest and sinus rigoberto estion x1 week Care Teams (unrecognized sec tion and content) Nursing Clinical Director Relationship Specialty Start Date End Date Alverto Argueta MD [address] [place], [place] [id number] PCP - General Family Practice 08/09/21 Nursing Clinical Director Relationship Specialty Start Date End Date Alverto Argueta MD [address] [place], [place] [address] PCP - General Family Practice 08/09/21 Nursing Clinical Director Relationship Specialty Start Date End Date Alverto Argueta MD [address] [place], [place] [id number] [phone] PCP - General Family Practice 08/09/21 Nursing Clinical Director Relationship Specialty Start Date End Date Alverto Argueta MD [address] [place], [place] [id number] [phone] PCP - General Family Medicine 08/09/21 Team Status: Active Member Role Status Dates Rolando Goins Family Provider Active No Primary Care Physician Primary Care Provider Active Team Status: Inactive Member Role Status No Primary Care Physician Primary Care Provider Active Dr. Yemi Oliver MD Emergency Provider Active Nursing Clinical Director Relationship Specialty Start Date End Date Alverto Argueta MD [address] [place], [place] [address] [phone] PCP - General Family Medicine 08/09/21 Nursing Clinical Director Relationship Specialty Start Date End Date Alverto Argueta MD [address] [place], [place] [phone] PCP - General Family Medicine 08/09/21 Nursing Clinical Director Relationship Specialty Start Date End Date Lucy Rinaldi [address] [facility] [place] [address] PCP - General Family Medicine 06/20/23 Nursing Clinical Director Relationship Specialty Start Date End Date Alverto Argueta MD [address] [facility] [place] [address] PCP - General Family Medicine 08/09/21 Nursing Clinical Director Relationship Specialty Start Date End Date Alverto Argueta MD [address] [facility] [place] [address] PCP - General Family Medicine 08/09/21 Nursing Clinical Director Relationship Specialty Start Date End Date Alverto Argueta MD [address] [facility] [place] [address] PCP - General Family Medicine 08/09/21 Nursing Clinical Director Relationship Specialty Start Date End Date Alverto Argueta MD [address] [facility] [place] [address] PCP - General Family Medicine 08/09/21 Nursing Clinical Director Relationship Specialty Start Date End Date Alverto Argueta MD [address] [facility] [place] [address] PCP - General Family Medicine 08/09/21 Lucy Rinaldi APRN.CNP [address] [facility] [place] [address] [employer] Family [facility] 01/19/24 Nursing Clinical Director Relationship Specialty Start Date End Date Alverto Argueta MD [address] [facility] [place] [address] PCP - General Family Medicine 08/09/21 PodlogLucy crespo APRN.MINER HELPER [address] [facility] [place] [address] [employer] Family Medicine 01/19/24 Goals (unrecognized section and content) Goals may be documented in a n alternate section (unrecognized sect ion and content) No Status Records FoundNo Status Records FoundNo Status Records Found INFORMATION SOURCE (unrecogn ized section and content) DATE CREATED AUTHOR 02/02/2023 [facility] DATE CREATED AUTHOR AUTHOR'S ORGANIZ ATION 06/22/2023 [facility] DATE CREATED AUTHOR AUTHOR'S ORGANIZ ATION 04/12/2024 [facility] FOR RECORDS PERTAINING TO PATIENTS WHO ARE OR HAVE BEEN ENROLLED IN A CHEMICAL DEPENDENCY/SUBSTANCEABUSE PROGRAM, SOME INFORMATION MAY BE OMITTED. This clinical summary was aggregated from multiple sources. Caution should be exercised in using it in the provision of clinical care. This summary normalizes information from multiple sources, and as a consequence, information in this document may materially change the coding, format and clinical context of patient data. In addition, data may be omitted in some cases. CLINICAL DECISIONS SHOULD BE BASED ON THE PRIMARY CLINICAL RECORDS. Identified [facility]. provides no warranty or guarantee of the accuracy or completeness of information in this document.
--- OUTSIDE RECORDS SUMMARY | 2024-08-26 07:10 | XMS RPT_ITS | CCD ---
Author Organization [facility] STATE TESTED NURSING ASSISTANT [facility] Care Team Providers Care Bridge Contractor Name Role Phone Unavailable Primary Care Provider Unavailevan e Alverto Argueta MD Primary Care Provider Alverto Argueta MD Primary Care Provider Yemi Oliver Attending Unavailable Care Physician, No Primary Primary Care Unava ilable PodlogLucy crespo Primary Care Provider [phone] BRISEIDA EVANS Referring Unavailable PODLOGAR LUCY CANADA~[id number] PODLOGAR Primar y Care Unavailable Alverto Argueta MD Primary Care Provider Podlogar AUTO DAMAGE ESTIMATOR.Lucy US Unavailable ALVERTO ARGUETA Primary Care Unavailab [...] aftercare (3 sources) Patient encounter status; Translations: [terminal operator (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) use of antithrombotics/antiplat elets] 01-29-2023 Episodic [...] CNOV Office Visit (UCWSTR ) MISSY BOSS ([id number]) 1975 M Date Time Provider Department 04/10/24 5:00 PM NATE CARO [facility] During your visit today, we recorded the following information about you: Temperature Pulse Respiration Blood pressure 97.3 degrees 55/minute 18/minute 131/79 Weight 71.9 kg Nate Caro, AGNES.SENIOR QUANTITY SURVEYOR 04/10/2024 5:05 PM Signed Subjective HPI Nontoxic-appearing [...] other (CABG) Father Cancer Maternal Grandmother other (CT) Paternal Grandfather Stroke Paternal Grandfather Social History [...] time. Ba (more content not included)... Normal [facility] CNCOon 10-22-2023 CNCO Letter Text Normal [facility] CNTHERAPYon 08-21-2023 CNTHERAPY OT/PT/Speech Visit (PTWS) MISSY BOSS ([id number]) 1975 M Date Time Provider Department 08/21/23 8:30 AM SEAN MOORE PTWS Date Time Provider Department [place] 08/21/2023 8:30 AM [id number], COREY PTWS Santhosh Gaffney Reason for Visit: Physical Therapy [503] PT Discharge [752] Primary Visit Diagnosis:Pain in left elbow [M25.522] Allergies As of Date: 08/21/2023 (No Known Allergies) Date Reviewed: 06/25/2023 Reviewed by: Elisabet Bridges LPN - Fully Assessed Prescriptions as of 11/15/2023 - omeprazole (PRILOSEC) 20 mg capsule Take 1 capsule by mouth daily before breakfast. 1/2 hr before meal. Normal [facility] CNTHERAPYon 07-30-2023 CNTHERAPY OT/PT/Speech Visit (PTWS) MISSY BOSS ([id number]) 1975 M Date Time Provider Department 07/30/23 10:45 AM SEAN MOORE PTFAHEEM Date Time Provider Department Center 07/30/2023 10:45 AM [id number], COREY PTFAHEEM G[place]ney Reason for Visit: PT Progress Note [1596] Primary Visit Diagnosis:Pain in left elbow [M25.522] Allergies As of Date: 07/30/2023 (No Known Allergies) Date Reviewed: 06/25/2023 Reviewed by: Elisabet Bridges LPN - Fully Assessed Prescriptions as of 07/30/2023 - omeprazole (PRILOSEC) 20 mg capsule Take 1 capsule by mouth daily before breakfast. 1/2 hr before meal. Normal [facility] CNTHERAPYon 07-10-2023 CNTHERAPY OT/PT/Speech Visit (PTWS) MISSY BOSS ([id number]) 1975 Date Time Provider Department 07/10/23 11:00 AM SEAN MOORE Date Time Provider Department Center 07/10/2023 11:00 AM [id number] LIN Reason for Visit: Physical Therapy [503] Primary Visit Diagnosis:Pain in left elbow [M25.522] Allergies As of Date: 07/10/2023 (No Known Allergies) Date Reviewed: 06/25/2023 Reviewed by: Elisabet Bridges LPN - Fully Assessed Prescriptions as of 07/10/2023 - omeprazole (PRILOSEC) 20 mg capsule Take 1 capsule by mouth daily before breakfast. 1/2 hr before meal. Normal [facility] CNTHERAPYon 07-02-2023 CNTHERAPY OT/PT/Speech Visit (PTWS) MISSY BOSS ([id number]) 1975 Date Time Provider Department 07/02/23 12:15 PM SEAN MOORE Date Time Provider Department Center 07/02/2023 12:15 PM [id number] LAMBERT Reason for Visit: Physical Therapy [503] Primary Visit Diagnosis:Pain in left elbow [M25.522] Allergies As of Date: 07/02/2023 (No Known Allergies) Date Reviewed: 06/25/2023 Reviewed by: Elisabet Bridges LPN - Fully Assessed Prescriptions as of 07/02/2023 - omeprazole (PRILOSEC) 20 mg capsule Take 1 capsule by mouth daily before breakfast. 1/2 hr before meal. Normal [facility] CNTHERAPYon 06-26-2023 CNTHERAPY OT/PT/Speech Visit (PTWS) MISSY BOSS ([id number]) 1975 M Date Time Provider Department 06/26/23 12:45 PM SEAN MOORE Date Time Provider Department [place] 06/26/2023 12:45 PM [id number] MOORE Reason for Visit: Physical Therapy [503] Primary Visit Diagnosis:Pain in left elbow [M25.522] Allergies As of Date: 06/26/2023 (No Known Allergies) Date Reviewed: 06/25/2023 Reviewed by: Elisabet Bridges LPN - Fully Assessed Prescriptions as of 06/29/2023 - omeprazole (PRILOSEC) 20 mg capsule Take 1 capsule by mouth daily before breakfast. 1/2 hr before meal. Dragger: Therapy (PT/OT/Speech/Resp) ID: [id number] 06/26/2023 1:27 PM Author: SEAN MOORE Signed by SEAN MOORE PT on 06/26/2023 at 1:27 PM Document text: Program_ID:[id number] Access Code: [email or web address] URL: [email or web address] Date: 06-26-2023 Prepared By: Sean Moore Program [...] - 4 sets - reps ----- Normal [facility] THERAPY NTon 06-26-2023 THERAPY NT HNO ID: [id number] Author: SEAN MOORE PT Service: ? Author Type: Physical Therapist Type: Therapy (PT/OT/Speech/Resp) Filed: 06/26/2023 13:27 Note Text: Program_ID:[id number] Access Code: [email or web address] URL: [email or web address] Date: 06-26-2023 Prepared By: Sean Moore Program [...] weekly - 4 sets - reps Normal [facility] CNOVon 06-25-2023 [facility]ISSY [facility] ([id number]) 1975 M Date Time Provider Department 06/25/23 7:20 AM LUCY RINALDI During your visit today, we recorded the following information about you: Pulse Respiration Blood pressure Weight 57/minute 18/minute 122/80 74.3 kg Lucy Rinaldi APRN.CNP 06/25/2023 11:15 AM Signed No charge for visit as patient only had paperwork which was not able to be completed by myself. Lucy Rinaldi APRN.SENIOR QUANTITY SURVEYOR Allergies As of Date: 06/25/2023 (No Known [...] for Encounter Date Provider Department Center 06/25/2023 [id number] RINALDI [facility] Encounter Status:Closed by LUCY [facility]DI on 06/25/[facility] ISAC [facility] (VICKI) GERAMISSY ([id number]) 1975 M Date Time Provider Department 06/25/23 [...] disability. I would recommend seeing an independent medical practice administrator as it suggested to help with his claim. I am not going to charge him for the visit this morning. DANIKA Weber Michelle, LPN 06/25/2023 12:34 PM Signed Patient notified. Voices understanding. Appreciative for the information. Patient doesn't need forms back, you may shred them. ROEBRT Grier Julie, APRN.CNP 06/25/2023 12:35 PM Signed Reviewed. Lucy Rinaldi APRN.CNP Allergies As of Date: 06/25/2023 (No Known Allergies) Date Reviewed: 06/25/2023 Reviewed by: Elsiabet Bridges LPN - Fully Assessed Reason for Visit: Forms [913] Prescriptions as of 06/25/2023 - omeprazole (PRILOSEC) 20 mg capsule Take 1 capsule by mouth daily before breakfast. 1/2 hr before meal. Problem List As Of Date 06/25/2023 Noted Resolved GERD (gastroesophageal reflux disease) [K21.9] 12/06/2011 Pain in left elbow [M25.522] 05/14/2023 Encounter Status:Closed by MAHNAZ MONTERO on 06/25/23 Normal [facility] XR PARANASAL SINUSES 3+ VIEW Son 06-20-2023 [...] Self Edit Transcribed Date: 06/20/2023 15:32 Normal [facility] XR Paranasal Sinuses 3+ View son 06-20-2023 [...] By: Self Edit Transcribed Date: 06/20/2023 15:32 [facility] Radiology Study observation (narrative) [employer] XR Paranasal Sinuses 3+ View sOrdered By: Alexis Barfield on 06-20-2023 [employer] Work Phone: CNTHERAPYon 05-14-2023 CNTHERAPY OT/PT/Speech Visit (PTWS) MISSY BOSS ([id number]) 1975 M Date Time Provider Department 05/14/23 10:00 AM SEAN MOORE PTFAHEEM Date Time Provider Department Center 05/14/2023 10:00 AM [id number] MOORE Reason for Visit: PT Eval [747] Primary Visit Diagnosis:Pain in left elbow [M25.522] Allergies As of Date: 05/14/2023 (No Known Allergies) Date Reviewed: 05/08/2023 Reviewed by: Elisabet Bridges LPN - Fully Assessed Prescriptions as of 05/14/2023 - omeprazole (PRILOSEC) 20 mg capsule Take 1 capsule by mouth daily before breakfast. 1/2 hr before meal. Normal [facility] CNOVon 05-08-2023 CNOV Office Visit (FAMPWS ) MISSY BOSS ([id number]) 1975 M Date Time Provider Department 05/08/23 11:00 AM LUCY RINALDI During your visit today, we recorded the following information about you: Pulse Respiration Blood pressure Weight 53/minute 16/minute 124/72 75.2 kg Height 1.615 m Lucy Rinaldi APRN.SENIOR QUANTITY SURVEYOR 05/08/2023 12:29 PM Signed 05/03/2023 Patient presents [...] - 202 (more content not included)... Normal [facility] Emergency Department Summary on 01-29-2023 Emergency Department Summary [facility] Medical Records Department [address] [place] [address] Emergency Department Summary 01/29/23 MR#: [id number] Acct: [id number] Name: MISSY BOSS Rep #: [id number] : 1975 47 From: Yemi Oliver MD [...] Funtion Narrative Narrative: Patient is a 47-year-old fbjuz-lvyr-ragiawps male who presents with laceration to the [...] your Primary Care Provider. Call [facility] ([phone]) or report to the closest Emergency Room. Call 911 if necessary. 01/29/232107 Cosigner Signature (if applicable): CC: No Pr (more content not included)... Normal [facility] Vital Signs Date Time Vital Sign Value Performing Clinician Facility 04-10-2024 16:52-0500 Body mass index (BMI) [Ratio] 27.57 kg/m2 Nate Caro APRN.CNP Work Phone: [facility] 04-10-2024 16:52-0500 Body temperature 97.3 [degF] Nate Caro APRN.CNP Work Phone: [facility] 04-10-2024 16:52-0500 Body weight 71.9 kg Nate Caro APRN.CNP Work Phone: [facility] 04-10-2024 16:52-0500 Diastolic blood pressure 79 mm[Hg] Nate Caro APRN.CNP Work Phone: [facility] 04-10-2024 16:52-0500 Heart rate 55 /min [facility] AUTO DAMAGE ESTIMATOR.SENIOR QUANTITY SURVEYOR Work Phone: [facility] 04-10-2024 16:52-0500 Respiratory rate 18 /min [facility] AUTO DAMAGE ESTIMATOR.SENIOR QUANTITY SURVEYOR Work Phone: [facility] 04-10-2024 16:52-0500 SaO2% (BldA) [Mass fraction] 100 % Nate Pendlematy AUTO DAMAGE ESTIMATOR.SENIOR QUANTITY SURVEYOR Work Phone: [facility] 04-10-2024 16:52-0500 Systolic blood pressure 131 mm[Hg] [facility] AUTO DAMAGE ESTIMATOR.SENIOR QUANTITY SURVEYOR Work Phone: [facility] 06-25-2023 07:22-0400 Body mass index (BMI) [Ratio] 28.49 kg/m2 Lucy Podlogar AUTO DAMAGE ESTIMATOR.SENIOR QUANTITY SURVEYOR Work Phone: [facility] 06-25-2023 07:22-0400 Body weight 74.3 kg Lucy Podlogar AUTO DAMAGE ESTIMATOR.SENIOR QUANTITY SURVEYOR Work Phone: [facility] 06-25-2023 07:22-0400 Diastolic blood pressure 80 mm[Hg] Lucy Podlogar AUTO DAMAGE ESTIMATOR.SENIOR QUANTITY SURVEYOR Work Phone: [facility] 06-25-2023 07:22-0400 Heart rate 57 /min Lucy Podlogar AUTO DAMAGE ESTIMATOR.SENIOR QUANTITY SURVEYOR Work Phone: [facility] 06-25-2023 07:22-0400 Respiratory rate 18 /min Lucy Podlogar AUTO DAMAGE ESTIMATOR.SENIOR QUANTITY SURVEYOR Work Phone: [facility] 06-25-2023 07:22-0400 SaO2% (BldA) [Mass fraction] 98 % Lucy Podlogar AUTO DAMAGE ESTIMATOR.SENIOR QUANTITY SURVEYOR Work Phone: [facility] 06-25-2023 07:22-0400 Systolic blood pressure 122 mm[Hg] Lucy Podlogar AUTO DAMAGE ESTIMATOR.SENIOR QUANTITY SURVEYOR Work Phone: [facility] 05-08-2023 11:11-0400 Body height 161.5 cm Lucy Podlogar AUTO DAMAGE ESTIMATOR.SENIOR QUANTITY SURVEYOR Work Phone: [facility] 05-08-2023 11:11-0400 Body weight 75.21 kg Lucy Podlogar AUTO DAMAGE ESTIMATOR.SENIOR QUANTITY SURVEYOR Work Phone: [facility] 05-08-2023 11:11-0400 Diastolic blood pressure 72 mm[Hg] Lucy Podlogar AUTO DAMAGE ESTIMATOR.SENIOR QUANTITY SURVEYOR Work Phone: [facility] 05-08-2023 11:11-0400 Heart rate 53 /min Lucy Podlogar AUTO DAMAGE ESTIMATOR.SENIOR QUANTITY SURVEYOR Work Phone: [facility] 05-08-2023 11:11-0400 Respiratory rate 16 /min Lucy Podlogar AUTO DAMAGE ESTIMATOR.SENIOR QUANTITY SURVEYOR Work Phone: [facility] 05-08-2023 11:11-0400 SaO2% (BldA) [Mass fraction] 99 % Lucy Podlogar AUTO DAMAGE ESTIMATOR.SENIOR QUANTITY SURVEYOR Work Phone: [facility] 05-08-2023 11:11-0400 Systolic blood pressure 124 mm[Hg] Lucy Podlogar AUTO DAMAGE ESTIMATOR.SENIOR QUANTITY SURVEYOR Work Phone: [facility] 01-29-2023 20:22-0500 Body height 162.56 cm [facility] 01-29-2023 20:22-0500 Body mass index (BMI) [Ratio] 30.9 kg/m2 [facility] 01-29-2023 20:22-0500 Body temperature 96.9 [degF] [facility] 01-29-2023 20:22-0500 Body weight 81.91 kg [facility] 01-29-2023 20:22-0500 Diastolic blood pressure 73 mm[Hg] [facility] 01-29-2023 20:22-0500 Heart rate 62 /min [facility] 01-29-2023 20:22-0500 Respiratory rate 18 /min [facility] 01-29-2023 20:22-0500 SaO2% (BldA) [Mass fraction] 99 % [facility] 01-29-2023 20:22-0500 Systolic blood pressure 135 mm[Hg] [facility] 07-14-2021 13:15-0400 Body temperature 98.01 [degF] Grzegorz Bryant AUTO DAMAGE ESTIMATOR.SENIOR QUANTITY SURVEYOR Work Phone: [facility] 07-14-2021 13:15-0400 Body weight 78.2 kg Grzegorz Bryant AUTO DAMAGE ESTIMATOR.SENIOR QUANTITY SURVEYOR Work Phone: [facility] 07-14-2021 13:15-0400 Diastolic blood pressure 84 mm[Hg] Grzegorz Bryant AUTO DAMAGE ESTIMATOR.SENIOR QUANTITY SURVEYOR Work Phone: [facility] 07-14-2021 13:15-0400 Heart rate 76 /min Grzegorz Bryant AUTO DAMAGE ESTIMATOR.SENIOR QUANTITY SURVEYOR Work Phone: [facility] 07-14-2021 13:15-0400 Respiratory rate 16 /min Grzegorz Bryant AUTO DAMAGE ESTIMATOR.SENIOR QUANTITY SURVEYOR Work Phone: [facility] 07-14-2021 13:15-0400 SaO2% (BldA) [Mass fraction] 100 % Grzegorz Bryant AUTO DAMAGE ESTIMATOR.SENIOR QUANTITY SURVEYOR Work Phone: [facility] 07-14-2021 13:15-0400 Systolic blood pressure 132 mm[Hg] Grzegorz Bryant AUTO DAMAGE ESTIMATOR.SENIOR QUANTITY SURVEYOR Work Phone: [facility] Encounters Encounter Date Encounter Type Care Provider Facility Start: 04-10-2024 End: 04-10-2024 ambulatory ALVERTO ARGUETA Facility:[facility] Start: 04-10-2024 End: 04-10-2024 Office outpatient visit 25 minutes Nate Caro AUTO DAMAGE ESTIMATOR.SENIOR QUANTITY SURVEYOR Work Phone: [facility] Comment on above: Bacterial sinusitis (Primary Dx) Start: 02-10-2024 End: 02-10-2024 ambulatory Pooja Denson RN NURSE CONSULTANT INTERN Comment on above: health information Start: 08-21-2023 End: 08-21-2023 ambulatory Sean Moore PT Work Phone: [facility] Comment on above: Pain in left elbow ( Primary Dx) Start: 07-30-2023 End: 07-30-2023 ambulatory Sean Moore PT Work Phone: [facility] Comment on above: Pain in left elbow ( Primary Dx) Start: 07-10-2023 End: 07-10-2023 ambulatory Sean Moore PT Work Phone: [facility] Comment on above: Pain in left elbow ( Primary Dx) Start: 07-02-2023 End: 07-02-2023 ambulatory Sean Moore PT Work Phone: [facility] Comment on above: Pain in left elbow ( Primary Dx) Start: 06-26-2023 End: 06-26-2023 ambulatory Sean Moore PT Work Phone: [facility] Comment on above: Pain in left elbow ( Primary Dx) Start: 06-25-2023 Telephone encounter Lucy sutherland APRN.SENIOR QUANTITY SURVEYOR Work Phone: [facility] Comment on above: Forms Start: 06-25-2023 End: 06-25-2023 ambulatory LUCY RINALDI Facility:[facility] Start: 06-25-2023 End: 06-25-2023 Patient encounter procedure Lucy Rinaldi APRN.SENIOR QUANTITY SURVEYOR Work Phone: [facility] Comment on above: APPOINTMENT CANCELLE D (Primary Dx) Start: 06-20-2023 ambulatory BRISEIDA EVANS [facility] Start: 06-20-2023 End: 06-20-2023 Evaluation and management of inpatient Winston Bernal [facility] Start: 06-20-2023 End: 06-20-2023 Subsequent hospital visit by physician Winston Bernal [facility] Comment on above: Sinus complaint Start: 05-14-2023 End: 05-14-2023 ambulatory Sean Eduard PT Work Phone: [facility] Comment on above: Pain in left elbow ( Primary Dx) Start: 05-08-2023 End: 05-08-2023 ambulatory ALVERTO ARGUETA Facility:[facility] Start: 05-08-2023 End: 05-08-2023 Patient encounter procedure Lucy Rinaldi APRN.SENIOR QUANTITY SURVEYOR Work Phone: [facility] Comment on above: Annual physical exam (Primary Dx); Screening for colon cancer; Screening for hyperlipidemia; Left elbow pain; Chronic left shoulder pain Start: 01-29-2023 End: 01-29-2023 Emergency department patient visit [facility] Facility:[facility] Start: 01-29-2023 End: 01-29-2023 Emergency department patient visit [facility] Work Phone: Start: 12-23-2021 Telephone encounter Mayur Argueta MD Work Phone: [facility] Comment on above: Patient Question Start: 08-09-2021 Telephone encounter Mayur Argueta MD Work Phone: [facility] Comment on above: dermatology referrra l Start: 08-09-2021 End: 08-09-2021 ambulatory Lucy Rinaldi APRN.SENIOR QUANTITY SURVEYOR Work Phone: [facility] Comment on above: Skin lesion (Primary Dx) Start: 08-09-2021 End: 08-09-2021 Telemedicine consultation with patient Lucy Rinaldi APRN.CNP Work Phone: [facility] Start: 07-14-2021 End: 07-14-2021 Patient encounter procedure Grzegorz Bryant APRN.CNP Work Phone: [facility] Comment on above: Sinobronchitis (Prim satish Dx) Start: 11-26-2020 Telephone encounter Lucy sutherland APRN.SENIOR QUANTITY SURVEYOR Work Phone: [facility] Comment on above: error Procedures Date Procedure Procedure Detail Performing Clinician Start: 06-20-2023 Radex sinuses parana krystyna compl minimum 3 views Briseida Evans MD Work Phone: Start: 07-30-2020 Adult depression screening assessment Grzegorz Bryant APRN.CNP Work Phone: Start: 07-30-2020 Lipid 1996 panel - S malcom or Plasma Lucy Rinaldi APRN.SENIOR QUANTITY SURVEYOR Work Phone: Plan of Treatment Date Care Activity Detail Author Start: 12-18-2030 Urine microalbumin profile DTaP,Tdap,Td Vaccine (3 - Td or Tdap) [facility] Start: 07-30-2025 Lipid panel Lipid Screening [facility] Start: 07-30-2025 LIPID SCREEN LIPID SCREEN [facility] Start: 05-07-2024 Covid-19 Vaccine ( season) Covid-19 Vaccine () [facility] Comment on above: Postponed from 10/13 (Declined at this time) Start: 05-07-2024 HIV screening HIV Screening [facility] Comment on above: Postponed from 03/12 (Declined at this time) Start: 10-14-2023 Covid-19 Vaccine () Covid-19 Vaccine () [facility] Start: 10-14-2023 Influenza vaccination [facility] Start: 09-04-2023 End: 09-04-2023 ambulatory 09/04/2023 8:30 AM EDT OT/PT/Speech Visit [facility] [address] [place] [address] Sean Moore PT [address] [facility] [place] [id number] Pain in left elbow [M25.522] [facility] Comment on above: Pain in left elbow [ M25.522] Start: 08-28-2023 End: 08-28-2023 Patient encounter procedure 08/28/2023 9:45 AM EDT Appointment Ambulatory Surgery [address] [place] [address] MD [address] [address] Screening for colon cancer [Z12.11] Ambulatory Surgery Comment on above: Screening for colon cancer [Z12.11] Start: 08-27-2023 End: 08-27-2023 ambulatory 08/27/2023 8:30 AM EDT OT/PT/Speech Visit [facility] [address] [place] [address] Sean Moore, PT [address] [place] [address] Pain in left elbow [M25.522] [facility] Comment on above: Pain in left elbow [ M25.522] Start: 08-21-2023 End: 08-21-2023 ambulatory 08/21/2023 8:30 AM EDT OT/PT/Speech Visit [facility] [address] [place] [address] Sean Moore, PT [address] [place] [place] [address] Pain in left elbow [M25.522] [facility] Comment on above: Pain in left elbow [ M25.522] Start: 08-14-2023 End: 08-14-2023 ambulatory 08/14/2023 8:30 AM EDT OT/PT/Speech Visit [facility] [address] [place] [address] Sean Moore, PT [address] [place] [address] Pain in left elbow [M25.522] [facility] Comment on above: Pain in left elbow [ M25.522] Start: 08-12-2023 Influenza vaccination Influenza Vacc ine (#1) [facility] Comment on above: Postponed from 10/13 (Declined at this time) Start: 07-31-2023 Diabetes Screening Diabetes Screenin g [facility] Start: 07-16-2023 End: 07-16-2023 ambulatory 07/16/2023 7:00 AM EDT OT/PT/Speech Visit [facility] [address] [place] [address] Sean Moore, PT [address] [place] [address] M25.512 (ICD-10-CM) - Acute pain of left shoulder [facility] Comment on above: M25.512 (ICD-10-CM) - Acute pain of left shoulder Start: 07-10-2023 End: 07-10-2023 ambulatory 07/10/2023 11:00 AM EDT OT/PT/Speech Visit [facility] [address] [place] [address] Sean Moore, PT [address] [place] [address] M25.512 (ICD-10-CM) - Acute pain of left shoulder [facility] Comment on above: M25.512 (ICD-10-CM) - Acute pain of left shoulder Start: 07-02-2023 End: 07-02-2023 ambulatory 07/02/2023 12:15 PM EDT OT/PT/Speech Visit [facility] [address] [place] [address] Sean Moore, PT [address] [place], [place] [address] M25.512 (ICD-10-CM) - Acute pain of left shoulder [facility] Comment on above: M25.512 (ICD-10-CM) - Acute pain of left shoulder Start: 06-26-2023 End: 06-26-2023 ambulatory 06/26/2023 12:45 PM EDT OT/PT/Speech Visit [facility] [address] [place] [address] Sean Moore, PT [address] [place], [place] [address] M25.512 (ICD-10-CM) - Acute pain of left shoulder [facility] Comment on above: M25.512 (ICD-10-CM) - Acute pain of left shoulder Start: 06-20-2023 Adolescent depressio n screening assessment Depression Screening [facility] Start: 06-20-2023 Hepatitis C screening Hepatitis C Sc reening [facility] Start: 06-20-2023 HIV screening HIV Screening [facility] Start: 06-20-2023 Lipid panel Cholesterol Sc reening (Lipid Panel) [facility] Start: 06-20-2023 Screening for malign ant neoplasm of colon Colorectal Cancer Screening: Colonoscopy [facility] Start: 06-20-2023 Social Influencers o f Health Screening Social Influencers of Health Screening [facility] Start: 05-08-2023 End: 08-07-2023 CBC W Auto Differential panel - Blood CBC + DIFF Lab Routine Annual physical exam Expected: 05/08/2023, Expires: 08/07/2023 [facility] Work Phone: Comment on above: Expected: 05/08/2023 , Expires: 08/07/2023 Start: 05-08-2023 End: 08-07-2023 Comprehensive metabolic 2000 panel - Serum or Plasma COMP METABOLIC PANEL Lab Routine Annual physical exam Expected: 05/08/2023, Expires: 08/07/2023 [facility] Work Phone: Comment on above: Expected: 05/08/2023 , Expires: 08/07/2023 Start: 05-08-2023 End: 08-07-2023 Lipid 1996 panel - Serum or Plasma LIPID PANEL BASIC Lab Routine Screening for hyperlipidemia Expected: 05/08/2023, Expires: 08/07/2023 [facility] Work Phone: Comment on above: Expected: 05/08/2023 , Expires: 08/07/2023 Start: 02-12-2023 Behavioral Health Screening Behavioral Health Screening [facility] Start: 01-29-2023 [facility] Start: 10-13-2022 COVID-19 Vaccine ( season) COVID-19 Vaccine ( season) [facility] Start: 2022 Screening for malign ant neoplasm of colon [facility] Start: 10-13-2021 Influenza vaccination INFLUENZA (#1) [facility] Start: 07-30-2021 Adult depression screening assessment DEPRESSION SCREENING [facility] Start: 07-30-2021 HIV SCREENING HIV SCREENING [facility] Comment on above: Postponed from 03/12 (Declined at this time) Start: 02-12-2021 DEPRESSION ASSESSMENT DEPRESSION ASS ESSMENT [facility] Start: 10-01-2020 DTaP,Tdap,and Td Vaccines (3 - Td or Tdap) DTaP,Tdap,and Td Vaccines (3 - Td or Tdap) [facility] Start: 10-01-2020 Urine microalbumin profile DTAP,TDAP,TD (2 - Td or Tdap) [facility] Start: 05-23-2003 IPV Vaccines (2 of 3 - Adult catch-up series) IPV Vaccines (2 of 3 - Adult catch-up series) [facility] Start: 1995 Anxiety Screening Anxiety Screening [facility] Start: 1995 Depression Screening Depression Scre ening [facility] Start: 1995 HIV SCREENING HIV SCREENING [facility] Start: 1982 COVID-19 VACCINE (#1) COVID-19 VACCI NE (#1) [facility] Start: 1977 COVID-19 VACCINE (#1) COVID-19 VACCI NE (#1) [facility] Patient Education Finger Tip Amp utation Open Tx [facility] Work Phone: Patient referral [facility] Work Phone: End: 05-07-2024 Screening colonoscopy COLONOSCOPY SCREENING Endoscopy Routine Screening for colon cancer 1 Occurrences starting 05/08/2023 until 05/07/2024 [facility] Work Phone: Comment on above: 1 Occurrences starti ng 05/08/2023 until 05/07/2024 End: 06-06-2024 XR Elbow - left AP and Lateral XR ELBOW GENERAL 2V AP/LAT LEFT Radiology Routine Left elbow pain Chronic left shoulder pain 1 Occurrences starting 05/08/2023 until 06/06/2024 [facility] Work Phone: Comment on above: 1 Occurrences starti ng 05/08/2023 until 06/06/2024 End: 06-06-2024 XR Shoulder - left 3 Views XR SHOULDER GENERAL 3V OR MORE AP/TRUE AP/OTHER LEFT Radiology Routine Chronic left shoulder pain 1 Occurrences starting 05/08/2023 until 06/06/2024 [facility] Work Phone: Comment on above: 1 Occurrences starti ng 05/08/2023 until 06/06/2024 [facility] Immunizations Immunization Date Immunization Notes Care Provider Marycarmen esposito 11-27-2021 influenza virus vaccine, unspecified formulation Lucy Rinaldi APRN.SENIOR QUANTITY SURVEYOR Work Phone: [facility] 11-25-2011 influenza virus vaccine, live, attenuated, for intranasal use Grzegorz Manny AUTO DAMAGE ESTIMATOR.SENIOR QUANTITY SURVEYOR Work Phone: [facility] Work Phone: 11-25-2011 influenza virus vaccine, unspecified formulation Winston Bernal [facility] 03-31-2011 anthrax vaccine Grzegorz Jovany matt AUTO DAMAGE ESTIMATOR.SENIOR QUANTITY SURVEYOR Work Phone: [facility] Work Phone: 03-19-2011 hepatitis B vaccine, adult dosage Grzegorz Manny AUTO DAMAGE ESTIMATOR.SENIOR QUANTITY SURVEYOR Work Phone: [facility] Work Phone: 10-24-2010 anthrax vaccine Grzegorz gutierrez AUTO DAMAGE ESTIMATOR.SENIOR QUANTITY SURVEYOR Work Phone: [facility] Work Phone: 10-24-2010 influenza virus vaccine, live, attenuated, for intranasal use Grzegorz Bryant AUTO DAMAGE ESTIMATOR.SENIOR QUANTITY SURVEYOR Work Phone: [facility] Work Phone: 10-24-2010 vaccinia (smallpox) vaccine, diluted Grzegorz Manny AUTO DAMAGE ESTIMATOR.SENIOR QUANTITY SURVEYOR Work Phone: [facility] Work Phone: 10-01-2010 hepatitis B vaccine, adult dosage Grzegorz Manny AUTO DAMAGE ESTIMATOR.SENIOR QUANTITY SURVEYOR Work Phone: [facility] Work Phone: 10-01-2010 tetanus toxoid, redu lashell diphtheria toxoid, and acellular pertussis vaccine, adsorbed Grzegorz Manny AUTO DAMAGE ESTIMATOR.SENIOR QUANTITY SURVEYOR Work Phone: [facility] Work Phone: 10-01-2010 typhoid vaccine, unspecified formulation Grzegorz Manny AUTO DAMAGE ESTIMATOR.SENIOR QUANTITY SURVEYOR Work Phone: [facility] Work Phone: 07-20-2010 anthrax vaccine Grzegorz Jovany matt AUTO DAMAGE ESTIMATOR.SENIOR QUANTITY SURVEYOR Work Phone: [facility] Work Phone: 07-20-2010 hepatitis B vaccine, adult dosage Grzegorz Bryant AUTO DAMAGE ESTIMATOR.SENIOR QUANTITY SURVEYOR Work Phone: [facility] Work Phone: 12-29-2009 influenza virus vaccine, live, attenuated, for intranasal use Grzegorz Bryant AUTO DAMAGE ESTIMATOR.SENIOR QUANTITY SURVEYOR Work Phone: [facility] Work Phone: 03-20-2009 novel [id number], all formulations Grzegorz Bryant AUTO DAMAGE ESTIMATOR.SENIOR QUANTITY SURVEYOR Work Phone: [facility] Work Phone: 01-16-2009 influenza virus vaccine, live, attenuated, for intranasal use Grzegorz Bryant APRN.SENIOR QUANTITY SURVEYOR Work Phone: [facility] Work Phone: 12-15-2007 influenza virus vaccine, unspecified formulation Grzegorz Bryant AUTO DAMAGE ESTIMATOR.SENIOR QUANTITY SURVEYOR Work Phone: [facility] Work Phone: 01-16-2007 influenza virus vaccine, live, attenuated, for intranasal use Grzegorz Bryant APRN.SENIOR QUANTITY SURVEYOR Work Phone: [facility] Work Phone: 11-27-2005 influenza virus vaccine, live, attenuated, for intranasal use Grzegorz Bryant AUTO DAMAGE ESTIMATOR.SENIOR QUANTITY SURVEYOR Work Phone: [facility] Work Phone: 01-17-2005 hepatitis A vaccine, unspecified formulation Grzegorz Bryant AUTO DAMAGE ESTIMATOR.SENIOR QUANTITY SURVEYOR Work Phone: [facility] Work Phone: 01-17-2005 influenza virus vaccine, unspecified formulation Grzegorz Bryant AUTO DAMAGE ESTIMATOR.SENIOR QUANTITY SURVEYOR Work Phone: [facility] Work Phone: 05-30-2003 tetanus and diphther ia toxoids, adsorbed, preservative free, for adult use (2 Lf of tetanus toxoid and 2 Lf of diphtheria toxoid) Grzegorz Bryant AUTO DAMAGE ESTIMATOR.SENIOR QUANTITY SURVEYOR Work Phone: [facility] Work Phone: 05-30-2003 typhoid vaccine, unspecified formulation Grzegorz Bryant AUTO DAMAGE ESTIMATOR.SENIOR QUANTITY SURVEYOR Work Phone: [facility] Work Phone: 04-25-2003 hepatitis A vaccine, unspecified formulation Grzegorz Bryant AUTO DAMAGE ESTIMATOR.SENIOR QUANTITY SURVEYOR Work Phone: [facility] Work Phone: 04-25-2003 influenza virus vaccine, whole virus Grzegorz Bryant AUTO DAMAGE ESTIMATOR.SENIOR QUANTITY SURVEYOR Work Phone: [facility] Work Phone: 04-25-2003 poliovirus vaccine, inactivated Grzegorz Bryant AUTO DAMAGE ESTIMATOR.SENIOR QUANTITY SURVEYOR Work Phone: [facility] Work Phone: 04-25-2003 poliovirus vaccine, unspecified formulation [facility] 01-18-2002 influenza virus vaccine, whole virus Grzegorz Bryant AUTO DAMAGE ESTIMATOR.SENIOR QUANTITY SURVEYOR Work Phone: [facility] Work Phone: 08-04-1986 tuberculin skin test ; purified protein derivative solution, intradermal Pooja Denson RN [facility] 05-25-1983 varicella virus vaccine Corbin Bryant AUTO DAMAGE ESTIMATOR.SENIOR QUANTITY SURVEYOR Work Phone: [facility] Work Phone: Payers Date Payer Category Payer Self-pay [id number] 2013 [facility] (not [facility] care or Medicaid) [facility] [id number] 2013 Unknown [facility] [id number] 2013-Present [phone] [address] [place] [address] Indemnity [id number] 2013 Unknown IAN MARSH [id number] 2013-Present [phone] [address] [place] [address] Indemnity [id number] 2013 [employer] ( and others) [id number] Unknown [id number] Social History Date Type Detail Facility Start: 06-02-2015 End: 05-08-2023 Tobacco smoking status NHIS Ex-smoker [facility] History of tobacco use Cigar Smoker [facility] Start: 06-02-2015 End: 05-08-2023 Tobacco use and exposure Former smokeless tobacco user [facility] End: 06-01-2013 History of tobacco use User of smokeless tobacco [facility] Start: 07-14-2021 End: 04-10-2024 Alcohol intake Current drinker of alcohol (finding) [facility] Start: 07-14-2021 End: 05-08-2023 Alcohol intake [facility] Start: 07-30-2020 End: 08-08-2021 History SDOH Alcohol Std Drinks 2 [facility] Start: 07-30-2020 End: 08-08-2021 History SDOH Alcohol Binge 3 [facility] Start: 07-12-2012 History SDOH Alcohol Comment ocas - weekends, right after dinner [facility] Start: 07-30-2020 End: 08-08-2021 History SDOH Food Worry 1 [facility] Start: 07-30-2020 Education 17 [facility] Start: 1975 Sex Assigned At Not on file C [facility] Start: 07-04-2021 End: 07-14-2021 Exposure to SARS-CoV-2 (event) Not sure [facility] Work Phone: Start: 08-08-2021 History SDOH Physica l Activity DPW 5 [facility] History of tobacco use Current smoker [facility] Start: 01-29-2023 Tobacco smoking stat us NHIS Unknown if ever smoked [facility] Start: 1975 Sex Assigned At Male [facility] Start: 08-08-2021 End: 05-08-2023 Social connection and isolation panel [facility] Do you belong to any clubs or organizations such as presybeterian groups, unions, fraternal or athletic groups, or school groups? Yes [facility] Are you now , , , , never or living with a partner? [facility] How often to you hav e a drink containing alcohol? Monthly or less [facility] How many standard dr inks containing alcohol do you have on a typical day? 1 or 2 [facility] How often do you hav e 6 or more drinks on 1 occasion? Less than monthly [facility] How hard is it for y ou to pay for the very basics like food, housing, medical care, and heating Not hard at all [facility] Do you feel stress - tense, restless, nervous, or anxious, or unable to sleep at night because your mind is troubled all the time - these days [OSQ] To some extent [facility] (I/We) worried dara er (my/our) food would run out before (I/we) got money to buy more. Never true [facility] In the past 12 month s, was there a time when you were not able to pay the mortgage or rent on time? No [facility] How often to you hav e a drink containing alcohol? 2-4 times a month [facility] How hard is it for y ou to pay for the very basics like food, housing, medical care, and heating Not very hard [facility] Do you feel stress - tense, restless, nervous, or anxious, or unable to sleep at night because your mind is troubled all the time - these days [OSQ] Only a little [facility] Clinical Notes 07-14-2021 to 04-10-2024 Nate Caro APRN.SENIOR QUANTITY SURVEYOR - 04/10/2024 4:53 PM ESTTelephone Encounter - Pooja Denson RN - 02/10/2024 3:16 PM ESTTelephone Encounter - Pooja Denson RN - 02/10/2024 3:16 PM EST Note Date & Type Note Facility 04-10-2024 Note HNO ID: [id number] Author: NATE CARO APRN.SENIOR QUANTITY SURVEYOR Service: ? Author Type: Nurse Practitioner Type: [...] other (CABG) Father Cancer Maternal Grandmother other (CT) Paternal Grandfather Stroke Paternal Grandfather Social History [...] of care. This note was generated using Animoto software. It may contain errors in wording, punctuation, or spelling. Nate Erickson (more content not included)... [facility] 04-10-2024 History of Presen t illness Narrative [...] other (CABG) Father Cancer Maternal Grandmother other (CT) Paternal Grandfather Stroke Paternal Grandfather Social History [...] of care. This note was generated using Animoto software. It may contain errors in wording, punctuation, or spelling. Nate Caro APRN.MAGEN documented in this encounter [facility] 02-10-2024 Telephone encounter Note Patient calling [...] with you PCP office tomorrow when open [facility] 02-10-2024 Miscellaneous Notes Patient calling with [...] tomorrow when open documented in this encounter [facility] 11-15-2023 Note HNO ID: [id number] Author: SEAN MOORE PT Service: ? Author Type: Physical Therapist Type: Progress Notes Filed: 11/15/2023 17:16 Note Text: 11/15/2023 [facility] PHYSICAL THERAPY DISCONTINUANCE OF CARE Plan of Care Period: Start of Care Date: 05/14/23 Last Visit Date: 08/21/2023 Therapy Program: The following is a summary of the interventions provided for this episode of care; Therapeutic exercise, Manual therapy, Self-[place] management, and Patient/Family/Caregiver Education Assessment: The following is the goal status: Goals updated 07/30/2023 Goals for Episode of Care: created on through [place] in home exercise program. - MET Perform [...] scheduled additional follow-up appointments. Sean Moore PT [facility] 08-21-2023 Note HNO ID: [id number] Author: SEAN MOORE PT Service: ? Author [...] Stop Time : 917 Sean Moore PT [facility] 08-21-2023 History of Presen t illness Narrative [...] Sean Moore PT documented in this encounter [facility] 07-30-2023 Note HNO ID: [id number] Author: SEAN MOORE PT Service: ? Author [...] for Episode of Care: created on through [place] in home exercise program. - MET Perform [...] Patient to be seen for Therapeutic exercise (59336), Neuromuscular re-education (40716), Manual therapy (61344), Therapeutic activities (21364), Self-[place] management (16456), Patient/Family/Caregiver Education PLAN FOR NEXT VISIT: DDN [...] 50mm 2.0 in and 60mm 2.5 in. Leola used 6, needles removed 6. Dry needling technique used: Pistoning, Fanning, and Deep needling. Patient education on purpose, precautions, safety, risks, and other treatment options regarding dry needling. Verbal consent received. Skilled Intervention: Manual skills to improve joint mobility, ROM, and decrease pain. Utilized anatomy knowledge of the therapist, and assessment of patient's response to intervention. Arnoldo Messer (more content not included)... [facility] 07-30-2023 History of Presen t illness Narrative [...] for Episode of Care: created on through [place] in home exercise program. - MET Perform [...] Patient to be seen for Therapeutic exercise (48988), Neuromuscular re-education (61183), Manual therapy (86285), Therapeutic activities (13603), Self-[place] management (53672), Patient/Family/Caregiver Education PLAN FOR NEXT VISIT: DDN [...] 50mm 2.0 in and 60mm 2.5 in. Leola used 6, needles removed 6. Dry needling [...] Sean Moore PT documented in this encounter [facility] 07-10-2023 Note HNO ID: [id number] Author: SEAN MOORE PT Service: ? Author [...] Stop Time : 1145 Sean Moore PT [facility] 07-10-2023 History of Presen t illness Narrative [...] Sean Moore PT documented in this encounter [facility] 07-02-2023 Note HNO ID: [id number] Author: SEAN MOORE PT Service: ? Author [...] Stop Time : 1301 Sean Moore PT [facility] 07-02-2023 History of Presen t illness Narrative [...] Sean Moore PT documented in this encounter [facility] 06-26-2023 History of Presen t illness Narrative Program_ID:[id number] Access Code: [email or web address] URL: [email or web address] Date: 06-26-2023 Prepared By: Sean Moore Program [...] Sean Moore PT documented in this encounter [facility] 06-26-2023 Note HNO ID: [id number] Author: SEAN MOORE PT Service: ? Author [...] Stop Time : 1329 Sean Moore PT [facility] 06-25-2023 Telephone encounter Note Reviewed. Lucy Rinaldi APRN.MAGEN [facility] 06-25-2023 Miscellaneous Notes Reviewed. Lucy Rinaldi [...] disability. I would recommend seeing an independent medical practice administrator as it suggested to help with his claim. I am not going to charge him for the visit this morning. Lucy Rinaldi APRN.CNP documented in this encounter [facility] 06-25-2023 Telephone encounter Note Patient notified. Voices understanding. Appreciative for the information. Patient doesn't need forms back, you may shred them. Elisabet Bridges LPN [facility] 06-25-2023 Telephone encounter Note Please let patient know I have reviewed the information with Dr. Argueta and he feels there is not enough irrefutable evidence in our records to write a letter for the disability. I would recommend seeing an independent medical practice administrator as it suggested to help with his claim. I am not going to charge him for the visit this morning. Lucy Rinaldi APRN.CNP [facility] 06-25-2023 Note HNO ID: [id number] Author: LUCY RINALDI APRN.CNP Service: ? Author Type: Nurse Practitioner Type: Progress Notes Filed: 06/25/2023 11:15 Note Text: No charge for visit as patient only had paperwork which was not able to be completed by myself. Lucy Rinaldi APRN.CNP [facility] 06-25-2023 History of Presen t illness Narrative No charge for visit as patient only had paperwork which was not able to be completed by myself. Lucy Rinaldi APRN.CNP documented in this encounter [facility] 05-14-2023 Note HNO ID: [id number] Author: SEAN MOORE PT Service: ? Author [...] of Care: created on 05/14/23 through 09/03/23 [place] in home exercise program. 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 [facility] 05-14-2023 History of Presen t illness Narrative [...] of Care: created on 05/14/23 through 09/03/23 [place] in home exercise program. 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 Please bring a list of all of your current medications, including any Hshc-ewx-Acibdkd medications with you. Medications If you take [...] exam. 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 Patient advised if symptoms do not improve or if symptoms worsen sooner, to contact their primary care physician. Potential red flag symptoms discussed with the patient. Reviewed appropriate action plan to take if red flag symptoms occur. Patient agreeable to treatment plan. documented in this encounter [facility] 05-08-2023 Note HNO ID: [id number] Author: LUCY RINALDI APRN.SENIOR QUANTITY SURVEYOR Service: ? Author Type: Nurse Practitioner Type: [...] C Screening Discontin (more content not included)... [facility] 01-29-2023 Discharge summary Note Date/Time January 29, 2023 8:57pm [facility] Medical Records Department [address] [place] [address] Emergency Department Summary 01/29/23 MR#: [id number] Acct: [id number] Name: MISSY BOSS Rep #:[id number] : 1975 47 From: Yemi Oliver MD [...] Funtion Narrative Narrative: Patient is a 47-year-old [id number] male who presents with laceration to the [...] your Primary Care Provider. Call [facility] ([phone]) or report to the closest Emergency Room. Call 911 if necessary. 01/29/232107 <Electronically signed by Yemi Oliver MD> Cosigner Signature (if applicable): CC: No Primary Care Physician ~ Signed [facility] Work Phone: [phone] 322-611011-16-2022 Miscellaneous Notes* Telephone Encounter - Joya Rowan [...] a cruise. Please advise. [facility] Miscellaneous Notes* Telephone Encounter - Rosalina Yao Pss - 08/09/2021 10:32 AM EDT Patient returned office call and stated he has an appointment today with Scar Booth. * Telephone Encounter - Elisabet Bridges LPN - 08/09/2021 9:59 AM EDT Consult faxed to Scar Booth at [phone]. Patient telephoned. Message left to call office [...] Booth. Joya Rowan LPN [facility] History of Present illness Narrative* Lucy [...] agreeable to treatment plan. [facility] History of Present illness Narrative* Grzegorz [...] other (CABG) Father Cancer Maternal Grandmother other (CT) Paternal Grandfather Stroke Paternal Grandfather Social History [...] - BENZONATATE 100 MG CAPSULE Grzegorz Bryant APRN.SENIOR QUANTITY SURVEYOR [facility] [place] [facility]* Diagnosis Sinobronchitis- Primary Unspecified sinusitis (chronic) [facility] [place] [facility]* Diagnosis Skin lesion- Primary Unspecified disorder of skin and subcutaneous tissue documented in this encounter [facility] note* Diagnosis Skin lesion- Primary Unspecified disorder of skin and subcutaneous tissue documented in this encounter [facility] noteNo assessment information availableWWayne Hospital Work Phone: Evaluation note* Diagnosis Annual physical exam- Primary Routine general medical examination at a health care facility Screening for colon cancer Special screening for malignant neoplasms, colon Screening for hyperlipidemia Screening for lipoid disorders Left elbow pain Pain in joint, upper arm Chronic left shoulder pain Pain in joint, shoulder region documented in this encounter [facility] note* Diagnosis Pain in left elbow- Primary Pain in joint, upper arm documented in this encounter [facility] note* Diagnosis Sinus complaint documented in this encounter [facility] note* Diagnosis APPOINTMENT CANCELLED- Primary documented in this encounter [facility] note* Diagnosis Pain in left elbow- Primary Pain in joint, upper arm documented in this encounter [facility] note* Diagnosis Pain in left elbow- Primary Pain in joint, upper arm documented in this encounter [facility] note* Diagnosis Pain in left elbow- Primary Pain in joint, upper arm documented in this encounter [facility] note* Diagnosis Bacterial sinusitis- Primary Unspecified sinusitis (chronic) documented in this encounter [facility] for referral (narrative)* Diagnostic Procedure Only (Routine) - Pending Review Specialty Diagnoses / Procedures Referred By Vinay baker Referred To Contact XR IMAGING Diagnoses Left elbow pain Chronic left shoulder pain Procedures XR ELBOW GENERAL 2V AP/LAT LEFT RADEX ELBOW 2 VIEWS Lucy Rinaldi APRN.CNP [address] [place] [address] [place] [address] Referral ID Status Reason Start Date Expiration Date Visits Requested Visits Authorized [id number] Pending Review Auto-Generat ed Referral 05/08/2023 06/06/2024 1 1 * Diagnostic Procedure Only (Routine) - Pending Review Specialty Diagnoses / Procedures Referred By Vinay t Referred To Contact XR IMAGING Diagnoses Chronic left shoulder pain Procedures XR SHOULDER GENERAL 3V OR MORE AP/TRUE AP/OTHER LEFT RADEX SHOULDER COMPLETE MINIMUM 2 VIEWS Lucy Rinaldi APRN.CNP [address] [place] [address] [facility] [address] Referral ID Status Reason Start Date Expiration Date Visits Requested Visits Authorized [id number] Pending Review Auto-Generat ed Referral 05/08/2023 06/06/2024 1 1 * Physical Therapy (Routine) - Pending Review Specialty Diagnoses / Procedures Referred By Contac t Referred To Contact [facility] Diagnoses Acute pain of left shoulder Left elbow pain Procedures CONSULT TO PHYSICAL THERAPY PHYSICAL THERAPY EVALUATION HIGH COMPLEX 45 MINS PodlogLucy crespo APRN.SENIOR QUANTITY SURVEYOR [address] [place] [address] [facility] [address] [address] Referral ID Status Reason Start Date Expiration Date Visits Requested Visits Authorized [id number] Pending Review Auto-Generat ed Referral 05/08/2023 05/07/2024 1 1 * Outpatient Procedure (Routine) - Pending Review Specialty Diagnoses / Procedures Referred By Contac t Referred To Contact [facility] Diagnoses Screening for colon cancer Procedures COLONOSCOPY SCREENING COLONOSCOPY FLX DX W/COLLJ SPEC WHEN PFRMD Lucy Rinaldi APRN.SENIOR QUANTITY SURVEYOR [address] [place] [address] [facility] [address] [place] [address] Referral ID Status Reason Start Date Expiration Date Visits Requested Visits Authorized [id number] Pending Review Auto-Generat ed Referral OON/Self Pay Override 05/08/2023 05/07/2024 1 1 [facility] Reason for Referral Specialty Diagnoses / Procedures Referred By Contac t Referred To Contact Dermatology Diagnoses Skin lesion Procedures CONSULT TO DERMATOLOGY EmilielogLucy crespo APRN.SENIOR QUANTITY SURVEYOR [address] [place] [address] Referral ID Status Reason Start Date Expiration Date Visits Requested Visits Authorized [id number] Ref Not Required PCP Requested Referral 08/09/2021 08/09/2022 1 1 Chief Complaint and Reason for Visit Chief Complaint laceration Advance Directives No Advanced Directives Records Found Advance Directive Response Recorded Date/ Time Living Will Yes January 29, 023 8:51pm Power of Chummer Yes January 29, 2023 8:51pm Name of Medical Power of Chummer GEOVANY BOSS January 29, 2023 8:51pm Summary [...] or prosecute any alcohol or drug abuse patient.[facility] the event this information is protected by the Federal Confidentiality of Alcohol and Drug Abuse Patient Records regulations: The Federal rules restrict any use of the information to criminally investigate or prosecute any alcohol or drug abuse patient.[facility] Hospital[facility] the event this information is protected by the Federal Confidentiality of Alcohol and Drug Abuse Patient Records regulations: The Federal rules restrict any use of the information to criminally investigate or prosecute any alcohol or drug abuse patient.[facility] Hospital[facility] the event this information is protected by the Federal Confidentiality of Alcohol and Drug Abuse Patient Records regulations: The Federal rules restrict any use of the information to criminally investigate or prosecute any alcohol or drug abuse patient.[facility] HospitalIn the event this information is protected by the Federal Confidentiality of Alcohol and Drug Abuse Patient Records regulations: The Federal rules restrict any use of the information to criminally investigate or prosecute any alcohol or drug abuse patient.[facility] HospitalIn the event this information is protected by the Federal Confidentiality of Alcohol and Drug Abuse Patient Records regulations: The Federal rules restrict any use of the information to criminally investigate or prosecute any alcohol or drug abuse patient.[facility] HospitalIn the event this information is protected by the Federal Confidentiality of Alcohol and Drug Abuse Patient Records regulations: The Federal rules restrict any use of the information to criminally investigate or prosecute any alcohol or drug abuse patient.[facility] HospitalIn the event this information is protected by the Federal Confidentiality of Alcohol and Drug Abuse Patient Records regulations: The Federal rules restrict any use of the information to criminally investigate or prosecute any alcohol or drug abuse patient.[facility] HospitalIn the event this information is protected by the Federal Confidentiality of Alcohol and Drug Abuse Patient Records regulations: The Federal rules restrict any use of the information to criminally investigate or prosecute any alcohol or drug abuse patient.[facility] HospitalIn the event this information is protected by the Federal Confidentiality of Alcohol and Drug Abuse Patient Records regulations: The Federal rules restrict any use of the information to criminally investigate or prosecute any alcohol or drug abuse patient.[facility] HospitalIn the event this information is protected by the Federal Confidentiality of Alcohol and Drug Abuse Patient Records regulations: The Federal rules restrict any use of the information to criminally investigate or prosecute any alcohol or drug abuse patient.[facility] HospitalIn the event this information is protected by the Federal Confidentiality of Alcohol and Drug Abuse Patient Records regulations: The Federal rules restrict any use of the information to criminally investigate or prosecute any alcohol or drug abuse patient.[facility] HospitalIn the event this information is protected by the Federal Confidentiality of Alcohol and Drug Abuse Patient Records regulations: The Federal rules restrict any use of the information to criminally investigate or prosecute any alcohol or drug abuse patient.[facility] HospitalIn the event this information is protected by the Federal Confidentiality of Alcohol and Drug Abuse Patient Records regulations: The Federal rules restrict any use of the information to criminally investigate or prosecute any alcohol or drug abuse patient.[facility] HospitalIn the event this information is protected by the Federal Confidentiality of Alcohol and Drug Abuse Patient Records regulations: The Federal rules restrict any use of the information to criminally investigate or prosecute any alcohol or drug abuse patient.[facility] HospitalIn the event this information is protected by the Federal Confidentiality of Alcohol and Drug Abuse Patient Records regulations: The Federal rules restrict any use of the information to criminally investigate or prosecute any alcohol or drug abuse patient.[facility] Reason for Visit (unrecogniz ed section and content) Reason Comments Physical Therapy Specialty Diagnoses / Procedures Referred By Contac t Referred To Contact PHYSICAL THERAPY Diagnoses M25.512 M25.522 Procedures Physical Therapy PodlogarLucy APRN.SENIOR QUANTITY SURVEYOR [address] [place] [address] Sean Moore, PT [address] [place] [address] Referral ID Status Reason Start Date Expiration Date Visits Requested Visits Authorized [id number] Authorized OON/Self Pay Override 02/12/2023 02/12/2024 94 99 Specialty Diagnoses / Procedures Referred By Contac t Referred To Contact [facility] Diagnoses M25.512 M25.522 Procedures Physical Therapy PodlogLucy crespo APRN.SENIOR QUANTITY SURVEYOR [address] [place] [address] [place] [address] [address] [place] [address] Reason Comments Cough Pt denied SOB, chest pain onset x1 wk, neg home Covid test 07/13/21 Reason Comments Derm Problem Reason Comments dermatology referrral Reason Comments error Reason Comments Patient Question Reason Comments Physical Reason Comments PT Eval Referral ID Status Reason Start Date Expiration Date Visits Requested Visits Authorized [id number] Authorized OON/Self Pay Override 02/12/2023 02/12/2024 99 99 Reason Comments Forms Reason Comments PT Progress Note Reason Comments health information Reason Comments Cough Chest and sinus rigoberto estion x1 week Care Teams (unrecognized sec tion and content) Bridge Contractor Relationship Specialty Start Date End Date Alverto Argueta MD [address] [place], [place] [id number] PCP - General Family Practice 08/09/21 Bridge Contractor Relationship Specialty Start Date End Date Alverto Argueta MD [address] [place], [place] [address] PCP - General Family Practice 08/09/21 Bridge Contractor Relationship Specialty Start Date End Date Alverto Argueta MD [address] [place], [place] [id number] [phone] PCP - General Family Practice 08/09/21 Bridge Contractor Relationship Specialty Start Date End Date Alverto Argueta MD [address] [place], [place] [id number] [phone] PCP - General Family Medicine 08/09/21 Team Status: Active Member Role Status Dates Rolando Goins Family Provider Active No Primary Care Physician Primary Care Provider Active Team Status: Inactive Member Role Status No Primary Care Physician Primary Care Provider Active Dr. Yemi lOiver MD Emergency Provider Active Bridge Contractor Relationship Specialty Start Date End Date Alverto Argueta MD [address] [place], [place] [address] [phone] PCP - General Family Medicine 08/09/21 Bridge Contractor Relationship Specialty Start Date End Date Alverto Argueta MD [address] [place], [place] [id number] [phone] PCP - General Family Medicine 08/09/21 Bridge Contractor Relationship Specialty Start Date End Date Lucy Rinaldi [address] [facility] [address] PCP - General Family Medicine 06/20/23 Bridge Contractor Relationship Specialty Start Date End Date Alverto Argueta MD [address] [facility] [place] [address] PCP - General Family Medicine 08/09/21 Bridge Contractor Relationship Specialty Start Date End Date Alverto Argueta MD [address] [facility] [address] PCP - General Family Medicine 08/09/21 Bridge Contractor Relationship Specialty Start Date End Date Alverto Argueta MD [address] [facility] [place] [address] PCP - General Family Medicine 08/09/21 Bridge Contractor Relationship Specialty Start Date End Date Alverto Argueta MD [address] [facility] [place] [address] PCP - General Family Medicine 08/09/21 Bridge Contractor Relationship Specialty Start Date End Date Alverto Argueta MD [address] [facility] [address] PCP - General Family Medicine 08/09/21 Lucy Rinaldi APRN.CNP [address] [facility] [place] [address] [facility] 01/19/24 Bridge Contractor Relationship Specialty Start Date End Date Alverto Argueta MD [address] [facility] [address] PCP - General Family Medicine 08/09/21 PodlogLucy crespo APRN.SENIOR QUANTITY SURVEYOR [address] [facility] [place] [address] [facility] 01/19/24 Goals (unrecognized section and content) Goals may be documented in a n alternate section (unrecognized sect ion and content) No Status Records FoundNo Status Records FoundNo Status Records Found INFORMATION SOURCE (unrecogn ized section and content) DATE CREATED AUTHOR 02/02/2023 [facility] DATE CREATED AUTHOR AUTHOR'S ORGANIZ ATION 06/22/2023 [facility] DATE CREATED AUTHOR AUTHOR'S ORGANIZ ATION 04/12/2024 [facility] FOR RECORDS PERTAINING TO PATIENTS WHO ARE [...] BE BASED ON THE PRIMARY CLINICAL RECORDS. [employer] [facility]. provides no warranty or guarantee of the accuracy or completeness of information in this document.
== END | disposition home or self-care (01) ==
LOC: MRI 07:04
DX: M54.12 Radiculopathy, cervical region (principal); M54.16 Radiculopathy, lumbar region; M47.894 Other spondylosis, thoracic region
CPT/HCPCS: 72141; 72146; 72148